=== PATIENT | male | born 1960 | race Caucasian/White ===

== ENCOUNTER 2019-10-21 16:35 | Inpatient (IN) ==
[2019-10-21 17:03] LABS: URINE SOURCE CLEAN CATCH
[2019-10-21 17:10] LABS: BILIRUBIN URINE NEGATIVE (NEGATIVE); BLOOD URINE NEGATIVE (NEGATIVE); COLOR YELLOW; GLUCOSE URINE NEGATIVE (NEGATIVE); KETONE URINE 20 mg/dL (NEGATIVE); LEUKOCYTES URINE NEGATIVE (NEGATIVE); NITRITE URINE NEGATIVE (NEGATIVE); PH URINE 5.5; PROTEIN URINE 30 mg/dL (NEGATIVE); SP GRAVITY URINE 1.021; TURBIDITY URINE CLEAR (CLEAR); UROBILINOGEN URINE NORMAL (NORMAL)
[2019-10-21 17:11] LABS: BASO# 0.02 X1000 (0.0-0.2); BASO% 0.1 % (0.0-0.8); HEMATOCRIT 42.4 % (42.0-52.0); HEMOGLOBIN 13.6 g/dL (14.0-18.0); IMM GRAN# 0.04 X1000 (0.0-0.04); IMM GRAN% 0.2 % (0.0-0.5); LYMPH# 0.44 X1000 (1.2-3.4); LYMPH% 2.7 % (20.5-51.1); MCH 33.6 PG (27-31); MCHC 32.1 g/dL (33-37); MCV 104.7 FL (81-99); MONO# 0.86 X1000 (0.11-0.59); MONO% 5.4 % (1.7-9.3); MPV 10.3 FL (7.4-10.4); NEUT# 14.69 X1000 (1.4-6.5); NEUT% 91.6 % (42.2-75.2); PLT 308 X1000 (130-400); RBC 4.05 XMIL (4.7-6.1); RDW 12.5 % (11.5-14.5); WBC 16.05 X1000 (4.8-10.8)
[2019-10-21] MEDS ORDERED: ZOFRAN IV ONE ×2 (17:12→21:45)
[2019-10-21] MEDS ORDERED: NS 1,000 ML IV ONE ×3 (17:12→17:55)
[2019-10-21 17:13] LABS: UR EPITHELIAL CELLS <10 /HPF (<10); URINE BACTERIA NEGATIVE /HPF; URINE RBC <10 /HPF (<10); URINE WBC <10 /HPF (<10)
[2019-10-21 17:17] LABS: URINE CRYSTALS NONE SEEN
[2019-10-21 17:22] LABS: LYMPHS 2 % (21-51); MONO 3 % (1-9); SEGS 95 % (42-75)
--- NOTE | 2019-10-21 17:25 | PROVIDER DOCUMENTATION ---
HPI-Abdominal Pain/GI Problem - General Chief Complaint: Nausea/Vomiting Stated Complaint: VOMITING Time Seen by Provider: 10/21/19 16:55 Source: patient Allergies/Adverse Reactions: Patient Allergies Allergy/AdvReac Type Severity Reaction Status Date / Time No Known Allergies Allergy Verified 10/21/19 17:21 Home Medications: Home Medication List Medication Instructions Recorded Confirmed Last Taken Type Folic Acid 1 mg PO DAILY 10/21/19 10/21/19 3 Days Ago History ~10/18/19 LISINOpril [Prinivil] 10 mg PO DAILY 10/21/19 10/21/19 3 Days Ago History ~10/18/19 Omeprazole 40 mg PO QAM 10/21/19 10/21/19 2 Days Ago History ~10/19/19 Promethazine [Phenergan] 25 mg PO Q6H PRN PRN 10/21/19 10/21/19 10/21/19 History - History of Present Illness-ABD Nature of Presenting Problems: 59yom presents to ED c/o 3 day history of diffuse abdominal pain, nausea, vomiting, and inability to maintain PO hydration. He denies fever/chills/diarrhea/dysuria/SOB/back pain. He states he has had a burning sensation in his abdomen radiating to his chest. He states he drinks 1 pint of alcohol every 2-3 days. Abdominal Pain Onset Location: reports: generalized abdomen Pain Radiation: reports: chest Quality of Pain: reports: burning, sharp Severity in ED: reports: severe Onset/Duration: reports: gradual, 3 days ago Timing: reports: still present Activities at Onset: reports: none Exposure to sick contacts?: No Modifying Factors: improves with: eating Associated Symptoms: reports: chest pain, loss of appetite, nausea, vomiting Last BM: unsure Dark Stools Present?: reports: none noticed Rectal Bleeding: reports: none Rectal Pain: reports: none Bruising or Bleeding Gums?: No Similar Symptoms Previously?: Yes Recently seen or treated by another doctor?: No Review of Systems - Adult - REVIEW OF SYSTEMS - ADULT Constitutional: reports: no symptoms reported Eyes: reports: no symptoms reported Ears, Nose, Mouth & Throat: reports: no symptoms reported Cardiovascular: reports: see HPI, chest pain Respiratory: reports: no symptoms reported Gastrointestinal: reports: no symptoms reported, abdominal pain, nausea, poor appetite, vomiting Genitourinary: reports: no symptoms reported Musculoskeletal: reports: no symptoms reported Integumentary: reports: no symptoms reported Neurological: reports: no symptoms reported Psychiatric: reports: no symptoms reported Endocrine: reports: no symptoms reported Hematologic/Lymphatic: reports: no symptoms reported Allergic/Immunologic: reports: no symptoms reported All Other Systems: Reviewed and Negative Past History - Adult - PAST MEDICAL HISTORY-ADULT Review of Records: reports: Old Records Reviewed, Nursing Assessment Review, Medications Reviewed, Social history reviewed & non-contributory. 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) Obstetrical/Gynecological: reports: denies history Genitourinary: reports: denies history Musculoskeletal: reports: other (back pain) Neurological: reports: denies history Psychiatric: reports: depression Endocrine/Immune: reports: denies history Other Conditions: reports: blindness - IMMUNIZATION STATUS Childhood Immunizations: See Nurse Assessment Flu Vaccine: See Nurse Assessment - FAMILY HISTORY Family History: reviewed, not pertinent - SOCIAL HISTORY Smoking: non-smoker Alcohol Use Frequency: every day Living Situation: family Physical Exam-General - PHYSICAL EXAM-ADULT Initial Vital Signs Reviewed: Yes (tachycardic to 140s) - CONSTITUTIONAL General Appearance: alert, mild distress, thin - EYES Eyes: PERRL/EOMI, pink conjunctivae - HEAD, EARS, NOSE, MOUTH & THROAT HENMT: normocephalic/atraumatic, normal ENT inspection, other (Dry Mucous Membranes) - NECK Neck: non-tender, full range of motion, supple. negative: meningismus - RESPIRATORY Respiratory: chest non-tender, lungs clear, normal breath sounds, no pleuratic chest pain, no respiratory distress, no accessory muscle use - CARDIOVASCULAR Cardiovascular: tachycardia - GASTROINTESTINAL (ABDOMEN) Abdominal Exam: soft, abnormal bowel sounds (hypoactive), tenderness (mild diffuse nonspecific) - LYMPHATIC Lymphatic: no adenopathy - MUSCULOSKELETAL Back Exam: normal inspection Extremity: normal range of motion, normal inspection - SKIN Integumentary: warm/dry, pallor (Mild), other (Poor skin turgor) - NEUROLOGIC Neurologic: grossly normal, no motor/sensory deficits - PSYCHIATRIC Psych/Mental Status: normal mood/affect, normal thought content, normal thought process, oriented x 3 Progress - PLAN OF CARE/RESULTS Progress/Plan/Lab Results: Vital Signs - 8 hr 10/21/19 16:39 Temperature 97.9 F Pulse Rate 149 H Respiratory Rate 25 H Blood Pressure 161/68 O2 Sat by Pulse Oximetry 100 Laboratory Results - last 24 hr 10/21/19 10/21/19 10/21/19 16:50 16:50 16:50 WBC 16.05 H RBC 4.05 L Hgb 13.6 L Hct 42.4 MCV 104.7 H MCH 33.6 H MCHC 32.1 L RDW Std Deviation 12.5 Plt Count 308 MPV 10.3 Immature Gran % (Auto) 0.2 Neut % (Auto) 91.6 H Lymph % (Auto) 2.7 L [place] % (Auto) 5.4 Eos % (Auto) 0.0 Baso % (Auto) 0.1 Immature Gran # (Auto) 0.04 Neut # (Auto) 14.69 H Lymph # (Auto) 0.44 L [place] # (Auto) 0.86 H Eos # (Auto) 0.00 Baso # (Auto) 0.02 Segmented Neutrophils 95 H Lymphocytes 2 L Monocytes 3 PTT (Actin FS) 25.0 Urine Source CLEAN CATCH Urine Color YELLOW Urine Turbidity CLEAR Urine pH 5.5 Ur Specific [place] 1.021 Urine Protein 30 A Ur Glucose (Stick) NEGATIVE Ur Ketones (Stick) 20 A Urine Blood NEGATIVE Urine Nitrite NEGATIVE Urine Bilirubin NEGATIVE Urobilinogen Dipstick NORMAL Urine Leukocytes NEGATIVE Urine WBC (Auto) <10 Urine RBC (Auto) <10 U Epithel Cells (Auto) <10 Urine Bacteria (Auto) NEGATIVE Urine Crystals NONE SEEN Small Round Cells Not Reportable Urine Casts Not Reportable Urine Yeast-like Cells Not Reportable Orders Category Date Time Status Cardiac Monitoring DIRECTED Care 10/21/19 16:42 Active Cardiac Monitoring DIRECTED Care 10/21/19 17:15 Active IV Insertion ORDERED Care 10/21/19 16:42 Completed Notify MD of + Sepsis Screen NOW Care 10/21/19 16:42 Active Notify Physician As Ordered Care 10/21/19 16:42 Active CHEST-1 VIEW [RAD] Stat Exams 10/21/19 16:42 Ordered ALCOHOL BLOOD Stat Lab 10/21/19 16:50 Received AMYLASE [CHEM] Stat Lab 10/21/19 16:50 Received BLOOD CULTURE [BLDCUL] Stat Lab 10/21/19 17:11 Received CBC WITH DIFF [HEME] Stat Lab 10/21/19 16:50 Completed CK PROFILE [SP CHEM] Stat Lab 10/21/19 16:50 Received COMPREHENSIVE METABOLIC PANEL [CHEM] Stat Lab 10/21/19 16:50 Received LACTATE, PLASMA [CHEM] Lab 10/21/19 19:45 Uncollected LACTATE, PLASMA [CHEM] Lab 10/21/19 22:45 Uncollected LACTATE, PLASMA [CHEM] Q3H Lab 10/21/19 16:50 Received LIPASE [CHEM] Stat Lab 10/21/19 16:50 Received MAGNESIUM [CHEM] Stat Lab 10/21/19 16:50 Received PROTIME WITH INR [COAG] Stat Lab 10/21/19 16:50 Received PTT [COAG] Stat Lab 10/21/19 16:50 Completed TROPONIN T HIGH SENSITIVITY Stat Lab 10/21/19 16:50 Received URINALYSIS W/POSS RFLX CULT [URINALYSIS] Stat Lab 10/21/19 16:50 Completed URINE MANUAL MICROSCOPIC [URINALYSIS] Stat Lab 10/21/19 16:50 Completed 0.9% Sodium Chloride Inj [Ns] 1,000 ml Med 10/21/19 17:12 Active IV 999 mls/hr Ondansetron [Zofran] Med 10/21/19 17:12 Discontinued 4 mg IV NOW ONE Oxygen Device Stat Oth 10/21/19 16:42 Active Pt signed out to me by Dr An. Pt continues to be tachycardic and repeat lactate is elevated. Will wdmit. Hospitalist paged at 20:30, awaiting call back. Result Diagrams: 10/21/19 16:50 10/21/19 16:50 - CONSULTS/PCP/HOSPITALIST Notification #1 *Consult/PCP/Hospitalist*: Dr Oswald Time Discussed: 21:55 - CHANGE OF SHIFT REPORT (ED Provider) 1 Report Given and Care Transferred to:: Dr. An Time of Transfer: 17:50 Items Pending: Labs, CT/MRI Results Comment: Discussed pts VS, current labs (including elevated Lactic) with Dr. An; he will assume patient's care from this point forward as the attending provider. Pt relocated from [facility] to [facility] ED 1 per Sherry, ED Charge Nurse. Departure - Departure Date of Disposition Decision: 10/21/19 Time of Disposition Decision: 21:59 DIAGNOSIS: Tachycardia, Alcohol dependence, Dehydration symptoms Disposition: ADMITTED INPATIENT 09 Certified Medical Emergency: Emergent Condition: Stable Referrals and Follow-Ups: Dre Cardoso CRNP [Primary Care Provider] - - Critical Care Note This patient required my direct & personal management of CC.: No Attestation - Physician/ ASTRID Attestation Patient care was provided by Advanced Practice Provider:: Yes Advanced Practice Provider:: Purnima Newell Advanced Practice Provider documentation review:: The Mid-level provider documentation, treatment plan and medical decision making was reviewed by the physician who agrees with all treatment and medical decision making by the MLP. The physician spent face to face time with patient:: Yes (Dr. An assumed primary ED care of patient at 1750.) Advanced Practice Provider documentation review:: Supervising physician onsite and consulted in the evaluation and care of this patient. The physician did have a face to face encounter with the patient.
[2019-10-21 17:26] LABS: ALB/GLOB RATIO 1.5; ALBUMIN 4.8 g/dL (3.5-5.0); CREATININE 1.3 mg/dL (0.7-1.2); INR 0.91; POTASSIUM 4.6 mmol/L (3.5-5.1); PROTIME 12.3 Seconds (11.0-16.0); TOTAL BILIRUBIN 1.16 mg/dL (0.20-1.00); TOTAL PROTEIN 8.1 g/dL (6.3-8.3)
[2019-10-21 17:34] LABS: MAGNESIUM 1.5 mg/dL (1.5-2.7)
--- NOTE | 2019-10-21 18:13 | Diag Imaging Result Doc PS360 ---
EXAM: CHEST-1 VIEW 10/21/2019 HISTORY: positive sepsis screen TECHNIQUE: AP portable upright at 0605 COMMENT: There is no evidence of acute cardiac or pulmonary disease. No previous studies are available for comparison. IMPRESSION: No evidence of acute disease. Electronically signed by Cody Acosta 10/21/2019 6:10 PM
[2019-10-21] MEDS ORDERED: PHENERGAN IV ONE (18:43)
[2019-10-21] MEDS ORDERED: SODIUM CHLORIDE 0.9% INJ ONE ×2 (18:43→22:45)
[2019-10-21] MEDS ORDERED: ATIVAN IV ONE ×2 (18:51→22:18)
[2019-10-21] MEDS ORDERED: ATIVAN ONE (19:00)
--- NOTE | 2019-10-21 19:31 | Diag Imaging Result Doc PS360 ---
EXAM: CT ABD/PELVIS W/IV CONT ONLY 10/21/2019 HISTORY: vomiting, abd pain, history of ulcerative colitis TECHNIQUE: This exam was performed using automated exposure control, adjustment of mA or kV according to patient size, and/or use of iterative reconstruction technique. COMMENT: There are no previous studies available for comparison. There is marked hepatic steatosis. There is a densely calcified granuloma in the left lower lobe. There is retained fluid in the stomach. The small bowel and colon are not distended. The spleen is not enlarged. The adrenal glands are not enlarged. The pancreas is within normal limits. The kidneys are without evidence of hydronephrosis or mass. The aorta is normal in caliber. The mesenteric and renal arteries appear to be patent. Pelvis: There is no evidence of bowel obstruction. The appendix is normal in appearance. There is no evidence of free fluid. The urinary bladder is unremarkable. 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 There are mild degenerative disc changes in the lumbar spine. IMPRESSION: Hepatic steatosis. No evidence of acute gastrointestinal inflammation. Electronically signed by Cody Acosta 10/21/2019 7:28 PM
[2019-10-21 20:17] LABS: ALLEN TEST YES; BE -2.3 mmoll (-3.0-3.0); BLOOD TYPE ARTERIAL; HCO3-(ACT) 23.1 mmoll (20.0-26.0); METHB 1.3 % (0.0-1.5); O2(CT) 15.1 mL/dL (15.0-23.0); O2HB 94.2 % (95.0-99.0); PCO2(98.6) 28 mmHg (35-45); PO2(98.6) 71 mmHg (60-100); SAMPLE BLOOD; SAO2 97.2 % (95.0-100.0); THB 11.4 g/dL (11.5-17.4); pH(98.6) 7.47 (7.35-7.45)
[2019-10-21 20:18] LABS: MODALITY ROOM AIR
--- NOTE | 2019-10-21 21:10 | EKG Report ---
Test Performed on : 10/21/2019 7:58:19 PM Test Reason : epigastric pain Blood Pressure : / mmHG Vent. Rate : 135 BPM Atrial Rate : 135 BPM P-R Int : 130 ms QRS Dur : 070 ms QT Int : 306 ms P-R-T Axes : 064 043 046 degrees QTc Int : 459 ms Sinus tachycardia. Otherwise normal ECG When compared with ECG of 02-NOV-2018 13:48, Vent. rate has increased BY 50 BPM Unconfirmed Result
[2019-10-21] MEDS ORDERED: TYLENOL PO ONE (21:45)
[2019-10-21] MEDS ORDERED: M.V.I.-12 10 ML, FOLIC ACID 1 MG, MAGNESIUM SULFATE 1 GM, THIAMINE 100 MG in NS 1,000 ML IV ONE (22:18)
[2019-10-21] MEDS ORDERED: LIBRIUM PO ONE (22:18)
[2019-10-21] MEDS ORDERED: MAGNESIUM SULFATE 2 GM/S.W.I. 2 GM/50 ML IVPB IV ONE (22:19)
[2019-10-21] MEDS ORDERED: MAALOX PLUS LIQUID PO ONE (22:22)
[2019-10-21] MEDS ORDERED: SODIUM CHLORIDE 0.9% INJ PRN (22:45)
[2019-10-21] MEDS ORDERED: PHENERGAN IV PRN (22:45)
[2019-10-21] MEDS ORDERED: ATIVAN IV PRN (22:45)
[2019-10-21] MEDS ORDERED: ZOFRAN IV PRN (22:45)
[2019-10-21] MEDS ORDERED: TYLENOL PO PRN (22:45)
--- NOTE | 2019-10-21 22:59 | HISTORY AND PHYSICAL ---
PRIMARY CARE PHYSICIAN: XUAN Angeles REASON FOR ADMISSION: Intractable nausea, vomiting, and agitation. HISTORY OF PRESENT ILLNESS: Mr. Jerome Ac is a 59-year-old man with longstanding history of hypertension, depression, and alcohol abuse. He currently states he has no suicidal ideation and from a mental standpoint, he is at his baseline. He, however, comes in here today because he vomited about 20 times since the morning. He was awakened by intense sour burning sensation in his abdomen and kept on vomiting on average 3 times an hour. He denies any coffee grounds or blood in vomitus. He denies any melanotic stools or hematochezia. After vomiting for several times, he develops severe, diffuse, burning abdominal pain radiating retrosternally up all the way to his throat. He denies any fever or chills. He says he still has some feelings of residual nausea, but otherwise, his symptoms have improved some. He says his urine output has diminished and he says he feels very thirsty and weak. As a result of this, he visit decided that he needs to quit drinking. He says he drinks about a pint of vodka and 12 beers which lasted him about the entire week. He does admit to having shakes when he does not drink for prolonged periods of time. His last drink was 2 days ago. No loss of consciousness. No change in the color of his stools or urine. No cardiorespiratory complaints at this time. No arthralgia or rash. No polyuria or polydipsia. REVIEW OF SYSTEMS: Twelve system review was done. Positive findings as per HPI. ALLERGIES: No known allergies. HOME MEDICATIONS: He is on lisinopril 10 mg daily, Phenergan 25 mg q.6, omeprazole 40 mg q.a.m., folic acid 1 mg daily. FAMILY HISTORY: Notable for diabetes and heart disease. SURGICAL HISTORY: He has had cataract surgery, lipoma excision. LAB WORK: Normal lipase. Lactic acid initially was 12.6, subsequent one was 7. AST 69, ALT 47, alkaline phosphatase 158, total bilirubin 1.1, magnesium 1.5, BUN 12, creatinine 1.3. PT and PTT is normal. Alcohol and acetone level is undetected. Urinalysis, specific gravity 1.021, and protein, 20+ ketones. Blood gas 7.47, pCO2 28, PO2 71 on room air. White count 16,000. Hemoglobin and hematocrit 13 and 42. Platelets 308,000. There are 91% neutrophils. Chest film: No evidence of acute cardiopulmonary disease. CT of the abdomen and pelvis was done and it showed hepatic steatosis, but otherwise no other findings. PHYSICAL EXAMINATION: VITAL SIGNS: Blood pressure 162/98, heart rate 143, respiratory rate is 28, temp is 97.9. His O2 saturation 97% on room air. GENERAL: He is middle-aged, slightly tremulous and anxious man who is not in acute distress. He is AAO x3. Normal mood and affect. HEENT: Head is normocephalic, atraumatic. Eyes, CRISTINA, EOMI. He is anicteric. Not pale. ENT exam is normal. NECK: Supple. No JVD or carotid bruit. No thyromegaly. CHEST: Clear when auscultated with good air entry both lung howard. CARDIOVASCULAR: First and second heart sounds heard. No gallops, murmurs, rubs. Rhythm is regular. ABDOMEN: Slightly protuberant, soft, with mildly diffusely tender abdomen with no rebound or guarding. Bowel sounds hyperactive. RECTAL: Deferred at this time. EXTREMITIES: The patient has fine tremors of outstretched hands. He has a decreased distal pulse volumes which are tachycardic, regular, symmetrical. No edema, clubbing or cyanosis. NEUROLOGIC: No gross focal deficits. SKIN: Intact. No breakdown, erythema. Mildly decreased turgor. MUSCULOSKELETAL EXAM: Grossly normal. ASSESSMENT: 1. Alcohol withdrawal. 2. Intractable nausea, vomiting, with post hematemesis esophagitis and gastritis. 3. Volume depletion. 4. Hypertension. 5. Alcoholic hepatitis. 6. Lactic acidosis secondary to decreased volume output and poor clearance of lactic acid due to underlying alcoholic liver disease. PLAN: Continue aggressive fluid resuscitation. Scheduled Librium has been started with p.r.n. Ativan for agitation. Banana bag will be instituted today while standing every day. Electrolytes will be replaced aggressively. Please follow up phosphorus levels. Magnesium will be replaced today. We will discontinue lisinopril and put patient on beta blockers for blood pressure and heart rate and alcohol withdrawal symptoms. The patient says when he leaves the hospital, he and his sister have arranged for some outpatient detox program. Start patient on proton pump inhibitor and p.r.n. Maalox for said gastritis and esophagitis. cc: MD Dre Rodriguez CRNP
[2019-10-21] MEDS: LR 1,000 ML IV SCH (23:53)
[2019-10-21] MEDS: LOVENOX SUBQ SCH (23:54)
[2019-10-21] MEDS: COREG PO SCH (23:54)
[2019-10-22] MEDS: LR 1,000 ML IV SCH ×3 (04:48→16:21)
[2019-10-22 06:48] LABS: HEMATOCRIT 31.4 % (42.0-52.0); HEMOGLOBIN 9.8 g/dL (14.0-18.0); LYMPH# 0.66 X1000 (1.2-3.4); LYMPH% 8.8 % (20.5-51.1); MCH 32.9 PG (27-31); MCHC 31.2 g/dL (33-37); MCV 105.4 FL (81-99); MONO# 0.72 X1000 (0.11-0.59); MONO% 9.7 % (1.7-9.3); MPV 10.2 FL (7.4-10.4); NEUT# 6.08 X1000 (1.4-6.5); NEUT% 81.5 % (42.2-75.2); PLT 192 X1000 (130-400); RBC 2.98 XMIL (4.7-6.1); RDW 12.5 % (11.5-14.5); WBC 7.46 X1000 (4.8-10.8)
[2019-10-22 07:15] LABS: AGAP 14; ALB/GLOB RATIO 1.3; ALBUMIN 3.2 g/dL (3.5-5.0); ALKALINE PHOSPHATASE 99 U/L (32-122); BUN 14 mg/dL (8-22); CALCIUM 7.8 mg/dL (8.8-10.2); CHLORIDE 103 mmol/L (98-107); COSMO 282; CREATININE 1.2 mg/dL (0.7-1.2); ESTIMATED GFR > 60; GLUCOSE 103 mg/dL (70-104); GOT 93 U/L (10-34); GPT 44 U/L (10-44); MAGNESIUM 1.4 mg/dL (1.5-2.7); POTASSIUM 4.1 mmol/L (3.5-5.1); SODIUM 141 mmol/L (136-145); TCO2 24 mmol/L (25-35); TOTAL BILIRUBIN 0.65 mg/dL (0.20-1.00); TOTAL PROTEIN 5.7 g/dL (6.3-8.3)
[2019-10-22] MEDS: FOLIC ACID PO SCH (08:14)
[2019-10-22] MEDS: THIAMINE 100 MG in NS 50 ML IV SCH (08:15)
[2019-10-22] MEDS: PROTONIX IV SCH (08:15)
[2019-10-22] MEDS: LIBRIUM PO SCH ×4 (08:15→21:28)
[2019-10-22] MEDS: COREG PO SCH ×2 (08:15→21:28)
[2019-10-22] MEDS ORDERED: COMPAZINE IV ONE (14:44)
[2019-10-22] MEDS ORDERED: G.I. COCKTAIL PO ONE (14:44)
[2019-10-22] MEDS: CARAFATE LIQUID PO SCH ×2 (15:42→21:28)
--- NOTE | 2019-10-22 17:32 | PROGRESS NOTE ---
DATE: 10/22/2019 SUBJECTIVE: This morning, Mr. Ac refers to be having a lot of burning in his retrosternal area. He wants to vomit but he cannot. He feels a lot of discomfort in the upper epigastrium. OBJECTIVE: Vital signs: Blood pressure is 147/89, pulse of 82, respiration is 13, temperature 98.6 degrees. General: Mr. Ac is a 59-year-old male, he is in bed. No distress. Mucosa is pink and moist. Anicteric. Acyanotic. Neck: Supple. Chest: Good air entry bilaterally. There were no crepitations. No rhonchi. Cardiovascular: Regular rate and rhythm. No murmurs, no rubs, no gallops. Abdomen: Soft, minimally distended. Some tenderness in the epigastrium but no guarding, no rebound. Extremities: No pedal edema. Central Nervous System: Patient is awake, alert, oriented. No focal deficit. LABORATORY DATA: Has all been reviewed. CBC shows microcytic anemia. Chemistry for the most part is unremarkable. Bicarbonate has normalized. ASSESSMENT: 1. Intractable nausea and vomiting with p.o. intolerance. 2. Clinical volume depletion improved. 3. Alcohol use and abuse with possible withdrawal symptoms on admission. This is improved. 4. Epigastric discomfort with dyspeptic symptoms most likely due to alcohol induced gastroesophagitis. PLAN: So for now, we are going to continue with the IV fluids, clear liquid diet. Give . Mr. Ac 1 time dose of Compazine and a GI cocktail. Started him on also Carafate and we will continue with the PPI. We will re-evaluate him in the morning. If he continues to be p.o. intolerant, we will get GI to evaluate him. cc: Timothy Maurice MD [facility]
[2019-10-22] MEDS: LOVENOX SUBQ SCH (23:35)
[2019-10-23] MEDS: CARAFATE LIQUID PO SCH ×2 (02:53→08:51)
[2019-10-23 08:03] VITALS: BP 167/96
[2019-10-23] MEDS: FOLIC ACID PO SCH (08:46)
[2019-10-23] MEDS: THIAMINE 100 MG in NS 50 ML IV SCH (08:46)
[2019-10-23] MEDS: LIBRIUM PO SCH (08:46)
[2019-10-23] MEDS: PROTONIX IV SCH (08:46)
[2019-10-23] MEDS: COREG PO SCH (08:46)
--- NOTE | 2019-10-24 10:00 | DISCHARGE SUMMARY ---
ADMISSION DATE: 10/21/2019 DISCHARGE DATE: 10/23/2019 DISPOSITION: Home FOLLOWUP: 1. XUAN Angeles 2. Dr. Antonio. CONSULTATION DURING THIS ADMISSION: None. IMAGING STUDIES OF SIGNIFICANCE: 1. Chest x-ray showed no evidence of acute disease. 2. A CT scan of the abdomen and pelvis show hepatic steatosis. No evidence of acute gastrointestinal inflammation. ADMISSION DIAGNOSIS: 1. Alcohol withdrawal. 2. Intractable nausea vomiting. 3. Volume depletion. 4. Alcohol hepatitis. DIAGNOSIS AT THE TIME OF DISCHARGE: 1. Intractable nausea and vomiting, improved. 2. Clinical volume depletion, improved. 3. Alcohol use and abuse with possible withdrawal symptoms on admission, resolved. 4. Epigastric discomfort with this dyspeptic symptoms, most likely due to alcohol-induced gastroesophagitis. 5. Transaminitis secondary to alcohol liver injury. 6. Hepatic steatosis, most likely from alcohol abuse. DISCHARGE MEDICATIONS: 1. Lisinopril 10 mg p.o. daily. 2. Carvedilol 6.25 b.i.d. 3. Pantoprazole 40 mg p.o. daily. 4. Carafate 1 g p.o. q. 6 hourly. 5. Folic acid 1 mg p.o. daily. 6. Phenergan 25 mg p.o. q. 6. PRESENTING COMPLAINT: Intractable nausea and vomiting. HISTORY OF PRESENTING COMPLAINT: Mr. Ac is a 59-year-old male who is known to have high blood pressure, depression, alcohol use and abuse, came to the emergency department because of intractable nausea and vomiting. The patient refers that he vomited about 20 times on the morning of presentation. He did deny any melena or hematochezia. He said he drinks about 12 beers or a pint of vodka in the week. Upon presentation, he was also found to be in mild alcohol withdrawal. He was subsequently admitted to [facility] for further medical care. HOSPITAL COURSE: Mr. Ac was admitted to [facility], was hydrated. We replenished all his electrolyte abnormality. He was NPO initially because of p.o. intolerance and eventually he was started on clears which he tolerated well and this was advanced. His withdrawal symptoms all got better. This morning, his sister was at the bedside. We spoke extensively about Mr. Ac's drinking habits and in the fact that is causing a lot of his of his medical problems including the hepatic steatosis, the withdrawal and all that. The sister did also advise him to quit since this been going on for so long. Ms Ac did say he wanted [facility] to evaluate him because of depression history. This was successfully done. However, he does not qualify for any inpatient. He has been advised to follow up outpatient. Mr. Ac has advised on every occasion about alcohol cessation and he has been advised to follow up with Dr. Reyez for any other GI related needs. We also told him that if his nausea and vomiting reoccur, he will need to see Dr. Reyez probably earlier than later. Other discharge instructions were discussed with him and he voiced understanding. The sister also at the bedside voiced understanding. TIME SPENT FOR DISCHARGE: 38 minutes. cc: Timothy Maurice MD
== END 2019-10-23 12:10 | disposition home or self-care (01) | DRG 897 ==
LOC: ED 16:35 → SUATTDRO 22:53 → 2N 22:53
PROVIDERS: ATTEND Internal Medicine

== ENCOUNTER 2019-10-25 14:24 | Inpatient (IN) ==
[2019-10-25 16:07] LABS: URINE SOURCE CLEAN CATCH
[2019-10-25 16:10] LABS: BILIRUBIN URINE SMALL (NEGATIVE); BLOOD URINE NEGATIVE (NEGATIVE); COLOR YELLOW; GLUCOSE URINE NEGATIVE (NEGATIVE); KETONE URINE 10 mg/dL (NEGATIVE); LEUKOCYTES URINE NEGATIVE (NEGATIVE); NITRITE URINE NEGATIVE (NEGATIVE); PROTEIN URINE 50 mg/dL (NEGATIVE); SP GRAVITY URINE 1.028; TURBIDITY URINE HAZY (CLEAR); UROBILINOGEN URINE 2 mg/dL (NORMAL)
[2019-10-25 16:23] LABS: UR EPITHELIAL CELLS <10 /HPF (<10); URINE BACTERIA NEGATIVE /HPF; URINE RBC <10 /HPF (<10); URINE WBC <10 /HPF (<10)
[2019-10-25 16:25] LABS: BASO# 0.01 X1000 (0.0-0.2); BASO% 0.1 % (0.0-0.8); EOS# 0.15 X1000 (0.0-0.7); EOS% 1.7 % (0.0-10.0); HEMATOCRIT 35.5 % (42.0-52.0); HEMOGLOBIN 11.6 g/dL (14.0-18.0); LYMPH# 1.11 X1000 (1.2-3.4); LYMPH% 12.9 % (20.5-51.1); MCH 33.6 PG (27-31); MCHC 32.7 g/dL (33-37); MCV 102.9 FL (81-99); MONO# 1.04 X1000 (0.11-0.59); MONO% 12.1 % (1.7-9.3); MPV 10.2 FL (7.4-10.4); NEUT% 73.2 % (42.2-75.2); PLT 192 X1000 (130-400); RBC 3.45 XMIL (4.7-6.1); RDW 12.2 % (11.5-14.5); WBC 8.61 X1000 (4.8-10.8)
[2019-10-25 16:38] LABS: URINE CASTS NONE SEEN; URINE CRYSTALS NONE SEEN; URINE SMALL ROUND CELLS NONE SEEN; URINE YEAST NONE SEEN
[2019-10-25 16:49] LABS: AGAP 12; ALB/GLOB RATIO 1.2; ALBUMIN 3.6 g/dL (3.5-5.0); ALKALINE PHOSPHATASE 100 U/L (32-122); BUN 12 mg/dL (8-22); CHLORIDE 98 mmol/L (98-107); COSMO 274; CREATININE 1.1 mg/dL (0.7-1.2); ESTIMATED GFR > 60; GLUCOSE 106 mg/dL (70-104); GOT 16 U/L (10-34); GPT 18 U/L (10-44); POTASSIUM 3.5 mmol/L (3.5-5.1); SODIUM 137 mmol/L (136-145); TCO2 27 mmol/L (25-35); TOTAL PROTEIN 6.6 g/dL (6.3-8.3)
[2019-10-25] MEDS ORDERED: BENADRYL IV ONE (19:56)
[2019-10-25] MEDS ORDERED: BENTYL IM ONE (19:56)
[2019-10-25] MEDS ORDERED: REGLAN IV ONE (19:56)
[2019-10-25] MEDS ORDERED: NS 1,000 ML IV ONE (19:56)
--- NOTE | 2019-10-25 20:44 | Diag Imaging Result Doc PS360 ---
CHEST-2 VIEWS - 10/25/2019 INDICATION: short of breath COMPARISON: 10/21/2019 FINDINGS: Stable granuloma in the lateral left costophrenic angle. The lungs are clear. Heart size is normal. No pneumothorax or pleural effusion. IMPRESSION: No acute disease or change from prior. Electronically signed by Everton Luis 10/25/2019 8:41 PM
[2019-10-25 21:29] LABS: INR 0.99; PROTIME 13.2 Seconds (11.0-16.0)
[2019-10-25 21:34] LABS: AMYLASE 63 U/L (20-200); LIPASE 22 U/L (13-60)
--- NOTE | 2019-10-25 21:44 | Diag Imaging Result Doc PS360 ---
CT ANGIOGRM PULMONARY ARTERIES, CT ANGIOGRAM ABDOMEN - 10/25/2019 INDICATION: shortness of breath TECHNIQUE: Axial CT images were obtained after administering intravenous contrast. Three-dimensional angiographic images were generated. COMPARISON: 10/21/2019 FINDINGS: CHEST: There is no pulmonary embolism. Heart and great vessels are normal. No adenopathy. There is a benign calcified granuloma in the left lower lobe. No infiltrates. The airways are clear. There are moderate degenerative changes of the spine. No acute or suspicious bony lesion. ABDOMEN: There is moderate fatty change of the liver stable from prior. The gallbladder, pancreas, spleen, adrenals, and kidneys are normal. No bowel obstruction or inflammation. Normal appendix. The abdominal aorta and all of its branches are patent. No aneurysm or stenosis. No significant vascular disease. There are moderate degenerative changes of the spine. No acute or suspicious bony lesion. IMPRESSION: Fatty change of the liver. No acute process. Normal vascularity throughout the chest and abdomen. This exam was performed using automated exposure control, adjustment of mA or kV according to patient size, and/or use of iterative reconstruction technique Electronically signed by Everton Luis 10/25/2019 9:42 PM
[2019-10-25] MEDS ORDERED: ASPIRIN PO ONE (22:01)
[2019-10-25] MEDS ORDERED: THORAZINE IM ONE (22:01)
[2019-10-25] MEDS ORDERED: LASIX IV ONE (22:01)
[2019-10-25] MEDS ORDERED: VASOTEC IV ONE (22:01)
[2019-10-25] MEDS ORDERED: NITROGLYCERIN TOP ONE (22:03)
--- NOTE | 2019-10-25 22:21 | PROVIDER DOCUMENTATION ---
This chart was entered by Fern Sierra Scribe, acting as scribe for Charles Lemus MD. HPI-General Adult - General Chief Complaint: Nausea Stated Complaint: RECHECK/ABD PAIN Time Seen by Provider: 10/25/19 19:36 Source: patient Allergies/Adverse Reactions: Patient Allergies Allergy/AdvReac Type Severity Reaction Status Date / Time No Known Allergies Allergy Verified 10/25/19 20:48 Home Medications: Home Medication List Medication Instructions Recorded Confirmed Last Taken Type LISINOpril [Prinivil] 10 mg PO DAILY 10/21/19 10/25/19 3 Days Ago History ~10/18/19 Carvedilol [Coreg] 6.25 mg PO BID #120 tab 10/23/19 10/25/19 Unknown Rx Folic Acid 1 mg PO DAILY #120 tab 10/23/19 10/25/19 Unknown Rx Pantoprazole [Protonix] 40 mg PO DAILY@0700 #30 tab 10/23/19 10/25/19 Unknown Rx Promethazine [Phenergan] 25 mg PO Q6H PRN PRN #20 tab 10/23/19 10/25/19 Unknown Rx Sucralfate [Carafate Liquid] 1 gm PO Q6HR #1 udc 10/23/19 10/25/19 Unknown Rx - History of Present Illness -Gen Adult Nature of Presenting Problems: pt is a 59 yr old male presenting with 2 day complaint of intermittent h iccups/belching, pt reports when hiccups begin he becomes short of breath and nauseated, pt reports he has been unable to vomit but drools excessively after hiccups/belching. pt admits he was discharged from this facility 2 days ago, symptoms onset just after discharge. pt admits hx of alcoholism states 1 week since last drink. pt also reports diaphoresis and tremor with episodes. Location of Pain/Injury: reports: abdomen Pain Radiation: reports: no radiation Quality of Pain: reports: cramping Severity: reports: moderate Onset/Duration: reports: 2 days ago Timing: reports: still present Context/Activities at Onset: reports: light activity Modifying Factors: improves with: nothing Associated Symptoms: reports: diaphoresis, nausea, shortness of breath. denies: back/neck pain, chest pain, dizziness, fever/chills, sinus congestion/drainage, vomiting Similar Symptoms Previously?: Yes Recently seen or treated by another doctor?: Yes (discharged from this facilty 2 days ago) Review of Systems - Adult - REVIEW OF SYSTEMS - ADULT Constitutional: reports: fatique Eyes: reports: no symptoms reported Ears, Nose, Mouth & Throat: reports: no symptoms reported Cardiovascular: reports: chest pain (midsternal, intermittent, non-radiating). denies: palpitations, syncope Respiratory: reports: excessive sputum production, shortness of breath Gastrointestinal: reports: abdominal pain, nausea, other (hiccups/belching) Genitourinary: reports: no symptoms reported Musculoskeletal: reports: no symptoms reported Neurological: reports: tremors. denies: dizziness/vertigo, headache/migraines, syncope Psychiatric: reports: anxiety, alcohol/drug dependence (1 week since last ETOH use-per pt) Endocrine: reports: excessive sweating Hematologic/Lymphatic: reports: no symptoms reported Allergic/Immunologic: reports: no symptoms reported All Other Systems: Reviewed and Negative Past History - Adult - PAST MEDICAL HISTORY-ADULT Review of Records: reports: Old Records Reviewed, Nursing Assessment Review, Medications Reviewed, Social history reviewed & non-contributory. 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) Obstetrical/Gynecological: reports: denies history Genitourinary: reports: denies history Musculoskeletal: reports: other (back pain) Neurological: reports: denies history Psychiatric: reports: depression Endocrine/Immune: reports: denies history Other Conditions: reports: blindness - PRIOR SURGERIES/PROCEDURES Surgical/Procedure History: reports: reviewed, not pertinent - IMMUNIZATION STATUS Childhood Immunizations: See Nurse Assessment Flu Vaccine: See Nurse Assessment - FAMILY HISTORY Family History: reviewed, not pertinent - SOCIAL HISTORY Smoking: denies Substance Use: alcohol (1 week since last use per pt) Living Situation: alone Physical Exam-General - PHYSICAL EXAM-ADULT Initial Vital Signs Reviewed: Yes - CONSTITUTIONAL General Appearance: alert, no apparent distress, anxious, other (tremulous) - EYES Eyes: PERRL/EOMI - HEAD, EARS, NOSE, MOUTH & THROAT HENMT: normocephalic/atraumatic, normal ENT inspection, other (mildly dry oral mucosa) - NECK Neck: non-tender, full range of motion, supple, normal inspection - RESPIRATORY Respiratory: chest non-tender, lungs clear, normal breath sounds - CARDIOVASCULAR Cardiovascular: normal peripheral pulses, no edema, tachycardia - GASTROINTESTINAL (ABDOMEN) Abdominal Exam: normal bowel sounds, non tender, soft - LYMPHATIC Lymphatic: no adenopathy - MUSCULOSKELETAL Back Exam: normal inspection, no CVA tenderness, no vertebral tenderness Extremity: normal range of motion, non-tender, normal gait, normal inspection - SKIN Integumentary: diaphoresis, pallor - NEUROLOGIC Neurologic: grossly normal, no motor/sensory deficits - PSYCHIATRIC Psych/Mental Status: anxious Progress - PLAN OF CARE/RESULTS Progress/Plan/Lab Results: Vital Signs - 8 hr 10/25/19 15:37 Temperature 99.2 F Pulse Rate 93 H Respiratory Rate 20 Blood Pressure 152/106 O2 Sat by Pulse Oximetry 98 Laboratory Results - last 24 hr 10/25/19 10/25/19 10/25/19 15:56 16:13 16:13 WBC 8.61 RBC 3.45 L Hgb 11.6 L Hct 35.5 L MCV 102.9 H MCH 33.6 H MCHC 32.7 L RDW Std Deviation 12.2 Plt Count 192 MPV 10.2 Immature Gran % (Auto) 0.0 Neut % (Auto) 73.2 Lymph % (Auto) 12.[address] [place] % (Auto) 12.1 H Eos % (Auto) 1.7 Baso % (Auto) 0.1 Immature Gran # (Auto) 0.00 Neut # (Auto) 6.30 Lymph # (Auto) 1.[address] [place] # (Auto) 1.04 H Eos # (Auto) 0.15 Baso # (Auto) 0.01 Sodium 137 Potassium 3.5 Chloride 98 Carbon Dioxide 27 Anion Gap 12 BUN 12 Creatinine 1.1 Estimated GFR/1.73 m2 > 60 BUN/Creatinine Ratio 11 Glucose 106 H Calculated Osmolality 274 Calcium 9.0 Total Bilirubin 0.70 AST 16 ALT 18 Alkaline Phosphatase 100 Total Protein 6.6 Albumin 3.6 Globulin 3.0 Albumin/Globulin Ratio 1.2 Urine Source CLEAN CATCH Urine Color YELLOW Urine Turbidity HAZY Urine pH 6.0 Ur Specific [place] 1.028 Urine Protein 50 A Ur Glucose (Stick) NEGATIVE Ur Ketones (Stick) 10 A Urine Blood NEGATIVE Urine Nitrite NEGATIVE Urine Bilirubin SMALL A Urobilinogen Dipstick 2 A Urine Leukocytes NEGATIVE Urine WBC (Auto) <10 Urine RBC (Auto) <10 U Epithel Cells (Auto) <10 Urine Bacteria (Auto) NEGATIVE Urine Crystals NONE SEEN Small Round Cells NONE SEEN Urine Casts NONE SEEN Urine Yeast-like Cells NONE SEEN Orders Category Date Time Status Nursing- Obtain EKG once Care 10/25/19 20:00 Active CHEST-2 VIEWS [RAD] Stat Exams 10/25/19 19:55 Ordered CTA [CT ANGIOGRAM ABDOMEN] [CT] Stat Exams 10/25/19 19:59 Ordered CTA [CT ANGIOGRAM THORAX] [CT] Stat Exams 10/25/19 19:59 Ordered AMMONIA [CHEM] Stat Lab 10/25/19 19:56 Uncollected AMYLASE [CHEM] Stat Lab 10/25/19 19:55 Ordered CBC WITH DIFF [HEME] Stat Lab 10/25/19 16:13 Completed CMP [COMPREHENSIVE METABOLIC PANEL] [CHEM] Stat Lab 10/25/19 16:13 Completed D-DIMER [COAG] Stat Lab 10/25/19 19:55 Ordered INFLUENZA SCREEN A/B Stat Lab 10/25/19 19:55 Uncollected LACTATE, PLASMA [CHEM] Stat Lab 10/25/19 19:55 Uncollected LIPASE [CHEM] Stat Lab 10/25/19 19:55 Ordered MAGNESIUM [CHEM] Stat Lab 10/25/19 19:56 Uncollected PRO B-NATRIURETIC PEPTIDE Stat Lab 10/25/19 20:00 Ordered PROTIME WITH INR [COAG] Stat Lab 10/25/19 20:00 Uncollected TROPONIN T HIGH SENSITIVITY Stat Lab 10/25/19 20:00 Ordered URINALYSIS W/POSS RFLX CULT [URINALYSIS] Stat Lab 10/25/19 15:56 Completed URINE MANUAL MICROSCOPIC [URINALYSIS] Stat Lab 10/25/19 15:56 Completed phos [PHOSPHORUS] [CHEM] Stat Lab 10/25/19 19:58 Ordered 0.9% Sodium Chloride Inj [Ns] 1,000 ml Med 10/25/19 19:56 Active IV 999 mls/hr Dicyclomine [Bentyl] Med 10/25/19 19:56 Discontinued 20 mg IM NOW ONE Diphenhydramine [Benadryl] Med 10/25/19 19:56 Discontinued 25 mg IV NOW ONE Metoclopramide [Reglan] Med 10/25/19 19:56 Discontinued 10 mg IV NOW ONE EKG [EKG] Stat Ther 10/25/19 20:00 Ordered Result Diagrams: 10/25/19 16:13 10/25/19 16:13 - REASSESSMENT Reassessment #1 Time Reassessed: 21:56 Status: improving (Givne iVF bolus, IV reglan and benadryl and IM bentyl. Still very hypertensive, with diastolic 112. Still complains of CP. Given ASA, nitropaste, IV enalapril and IV lasix for likely hypertensive heart disease/new onset CHF) Reassessment Comment: Will ask hospitalist to admit for cardiac work-up - EKG 1 Time of EKG reading by physician:: 22:14 EKG Read and Signed by:: Charles Lemus EKG Interpretation (*Must complete 3 of following elements*): Abnormal Rate: 96 Rhythm: NSR [place]: normal QRS: LVH, other (left atrial enlargement) [place] Interval: normal ST Wave: normal Prior EKG Comparison: no prior EKG - XRAY 1 XRAY Study: Chest Impression: Normal, See EMR Report (Signed EXAM: CHEST-1 VIEW 10/25/2019 HISTORY: WEAKNESS TECHNIQUE: AP chest COMMENT: The heart size and pulmonary vascularity are within normal limits. There are no previous studies available for comparison. There is no evidence of acute pulmonary disease. IMPRESSION: No acute disease. Electronically signed by Cody Acosta 10/25/2019 1:43 PM 10/25/19 1343 Interpreting Physician: Cody Acosta MD Dictated Date/Time: 10/25/19 1342 cc: Abraham Xie MD; None,PCP) - CT/MRI 1 CT Study: Abdomen, Angiogram Impression: Normal, See EMR Report ( CT ANGIOGRM PULMONARY ARTERIES, CT ANGIOGRAM ABDOMEN - 10/25/2019 INDICATION: shortness of breath TECHNIQUE: Axial CT images were obtained after administering intravenous contrast. Three- dimensional angiographic images were generated. COMPARISON: 10/21/2019 FINDINGS: CHEST: There is no pulmonary embolism. Heart and great vessels are normal. No adenopathy. There is a benign calcified granuloma in the left lower lobe. No infiltrates. The airways are clear. There are moderate degenerative changes of the spine. No acute or suspicious bony lesion. ABDOMEN: There is moderate fatty change of the liver stable from prior. The gallbladder, pancreas, spleen, adrenals, and kidneys are normal. No bowel obstruction or inflammation. Normal appendix. The abdominal aorta and all of its branches are patent. No aneurysm or stenosis. No significant vascular disease. There are moderate degenerative changes of the spine. No acute or suspicious bony lesion. IMPRESSION: Fatty change of the liver. No acute process. Normal vascularity throughout the chest and abdomen. This exam was performed using automated exposure control, adjustment of mA or kV according to patient size, and/or use of iterative reconstruction technique Electronically signed by Everton Luis 10/25/2019 9:42 PM 10/25/192141 Interpreting Physician: Everton Luis MD Dictated Date/Time: 10/25/192136 cc: Charles Lemus MD; Dre Cardoso) Comparison with other Films: no changes Departure - Departure Date of Disposition Decision: 10/25/19 Time of Disposition Decision: 22:19 DIAGNOSIS: Chest pain of uncertain etiology, Malignant hypertension with congestive heart failure Disposition: ADMITTED INPATIENT 09 Certified Medical Emergency: Emergent Condition: Fair Referrals and Follow-Ups: Dre Cardoso CRNP [Primary Care Provider] - - Critical Care Note This patient required my direct & personal management of CC.: Yes Total Time (mins): 45 Critical Care Statement: This patient required my direct personal management to treat or rule out processes, the absence of which, could potentiallly result in sudden, clinically significant life or limb threatening deterioration. Attestation - Physician/ ASTRID Attestation Patient care was provided by Advanced Practice Provider:: No The physician spent face to face time with patient:: Yes Advanced Practice Provider documentation review:: Supervising physician onsite and consulted in the evaluation and care of this patient. The physician did have a face to face encounter with the patient. This chart was documented by the indicated scribe, (Fern Sierra, Tamika) and accurately reflects the services I performed and decisions made by me, Charles Lemus MD, as attested by the provider's signature.
--- NOTE | 2019-10-25 23:04 | EKG Report ---
Test Performed on : 10/25/2019 10:07:48 PM Test Reason : short of breath Blood Pressure : / mmHG Vent. Rate : 096 BPM Atrial Rate : 096 BPM P-R Int : 160 ms QRS Dur : 074 ms QT Int : 356 ms P-R-T Axes : 048 010 022 degrees QTc Int : 449 ms Normal sinus rhythm. Possible Left atrial enlargement Borderline ECG When compared with ECG of 21-OCT-2019 19:58, (Unconfirmed) No significant change was found Unconfirmed Result
[2019-10-25] MEDS: NS 1,000 ML IV SCH (23:30)
[2019-10-26 05:55] LABS: CHOLESTEROL 158 mg/dL (0-200); HDL 87 mg/dL (35-55); LDL 58 mg/dL; TRIGLYCERIDES 66 mg/dL (39-160); VLDL 13 mg/dL
[2019-10-26] MEDS ORDERED: SODIUM CHLORIDE 0.9% INJ SCH (06:00)
[2019-10-26] MEDS ORDERED: ZOFRAN IV PRN (06:00)
[2019-10-26] MEDS ORDERED: NITROGLYCERIN TOP PRN (07:27)
[2019-10-26] MEDS ORDERED: PHENERGAN PO PRN (07:27)
[2019-10-26] MEDS ORDERED: LIBRIUM PO PRN (07:27)
[2019-10-26 07:33] LABS: CK INDEX 0.4 (0.0-2.5); CK-MB 2.82 ng/mL (0.0-5.0)
[2019-10-26 08:30] LABS: IRON SATURATION 19 %; TIBC 169 ug/dL; TOTAL IRON 32 ug/dL (53-167); UNBOUND IRON 137 ug/dL (112-346)
[2019-10-26] MEDS: DUONEB (A & A) INH PRN ×3 (08:31→16:00)
--- NOTE | 2019-10-26 08:58 | HISTORY AND PHYSICAL ---
CHIEF COMPLAINT: Abdominal discomfort. HISTORY OF PRESENT ILLNESS: Mr. Jerome Ac is a 59-year-old male who has a history of hypertension, as well as diabetes mellitus. He presented to the hospital because of discomfort he has in the region of his epigastric area. This has been going on for about 1 week. He describes the discomfort as quivering. He has had associated nausea as well as hiccups. He also describes the discomfort extending into his chest area to the point where he has chest pain, as well as shortness of breath. The patient was seen and evaluated in the ER. His D-dimer level was found to be elevated at 0.6. He had a pulmonary arteriogram done which did not reveal any evidence of PE. Also of note, his proBNP level was elevated at 1414. Chest x-ray, no acute disease. CT of the abdomen, no acute findings noted. The patient will be admitted to the floors for further management. PAST MEDICAL HISTORY: Hypertension, depression, as well as alcoholism. SOCIAL HISTORY: The patient drinks alcohol. No drug use. No cigarette smoking. ALLERGIES: No known drug allergies. PAST SURGICAL HISTORY: He has had cataract surgery. FAMILY HISTORY: Cataracts. MEDICATIONS: His medications include the following: Lisinopril 10 mg p.o. daily, Coreg 6.25 mg p.o. twice a day, folic acid 1 mg p.o. daily, pantoprazole 40 mg p.o. daily, Phenergan 25 every 6 hours p.r.n., sucralfate 1 gram every 6 hours. REVIEW OF SYSTEMS: Constitutional: No fever. He has headaches. Eyes: No blurred vision. ENT: No hearing loss. Respiratory: He does have some cough. Genitourinary: No dysuria. Musculoskeletal: He has joint pains. Dermatology: No skin lesions. Hematology: No bleeding problems. Endocrinology: No diabetes or thyroid disease. PHYSICAL EXAMINATION: VITAL SIGNS: On examination, his vital signs are as follows: Temperature 99.2 degrees, pulse 93, respirations 20, oxygen saturation is 98%. HEENT: Atraumatic, normocephalic. Patient is anicteric. No oral lesions. NECK: No lymphadenopathy or thyromegaly. CARDIOVASCULAR: S1, S2. RESPIRATORY SYSTEM: Has evidence of good air entry bilaterally. ABDOMEN: Soft, nontender. No masses felt. EXTREMITIES: No evidence of edema. CENTRAL NERVOUS SYSTEM: No obvious focal deficit noted. LABORATORY STUDIES: WBC is 8.61, hematocrit is 35.5 with a platelet count of 192,000. Sodium 137, potassium 3.5, chloride is 98, bicarbonate 25, BUN is 12, creatinine 1.1. CTA of the chest and abdomen, no abnormalities noted. Chest x-ray, no acute findings. ASSESSMENT AND PLAN: 1. Abdominal pain. Query etiology. I will maintain the patient on proton pump inhibitor, analgesic agents, as well as antiemetics. Consult with Gastroenterology for possible upper gastrointestinal endoscopic studies. 2. Atypical chest pain. Place patient on telemetry. Follow up on serial cardiac enzymes. We will for gastroesophageal reflux disease by maintaining the patient on proton pump inhibitor. Gastrointestinal evaluation for possible esophagitis. 3. Alcoholism. We will maintain patient on delirium tremens prophylaxis, along with thiamine, as well as folic acid. Check magnesium and phosphorus level. Replace those if needed. Check CPK level. 4. Hypertension. Optimize blood pressure control. 5. Deep vein thrombosis prophylaxis. Sequential compression devices. 6. Gastrointestinal prophylaxis. Proton pump inhibitor. cc: Gonzalez Proctor MD [facility]
[2019-10-26] MEDS ORDERED: LOVENOX SUBQ SCH (09:00)
[2019-10-26 09:30] LABS: CK INDEX 0.3 (0.0-2.5); CK-MB 2.15 ng/mL (0.0-5.0)
[2019-10-26] MEDS: PROTONIX IV SCH (10:31)
[2019-10-26] MEDS: ASPIRIN PO SCH (10:50)
[2019-10-26] MEDS: NS 1,000 ML IV SCH (10:50)
[2019-10-26] MEDS: THIAMINE 100 MG in NS 50 ML IV SCH (10:50)
[2019-10-26] MEDS: COREG PO SCH ×2 (10:51→23:16)
[2019-10-26] MEDS: FOLIC ACID 1 MG in NS 50 ML IV SCH (10:51)
[2019-10-26] MEDS: CENTRUM TABLET PO SCH (10:51)
[2019-10-26] MEDS: PRINIVIL PO SCH (10:51)
[2019-10-26] MEDS: CARAFATE LIQUID PO SCH ×3 (10:51→23:16)
[2019-10-26] MEDS: FOLIC ACID PO SCH (10:51)
[2019-10-26] MEDS: PROTONIX PO SCH (10:52)
--- NOTE | 2019-10-26 15:43 | GASTROENTEROLOGY CONSULTATION ---
DATE: 10/26/2019 REASON FOR CONSULT: Abdominal pain. HISTORY OF PRESENT ILLNESS: Mr. Ac is a 59-year-old male who has a history of hypertension , depression, alcoholism and legally blind. The patient mentioned that he was not able to eat anything since the last 2 weeks. He has been having abdominal pain, hiccups, burping and feels like his stomach is getting contracted. The patient presented to the ER yesterday complaining of hiccups, burping, abdominal pain, shortness of breath and difficulty breathing. He also mentioned that he sometimes feels like he was gasping for air with chest pain, headaches, ringing in ears and water drooling out from his mouth. He has also mentioned that he had fever and chills. The patient mentioned that his emesis was clear liquids. He had come to the hospital on and he was discharged on Friday. The patient did mention that he takes Tylenol as needed and also 6 months back he had taken 2 packs of BC Powder. A chest x-ray on admission had shown that the patient has no acute disease. His abdominal arteriogram showed fatty changes of the liver. No acute processes. Normal vascularity throughout the chest and the abdomen. The patient's influenza screen has been negative. PAST MEDICAL HISTORY: Hypertension, depression, alcoholism, legally blind, shortness of breath, palpitations. SURGICAL HISTORY: Patient had cataract surgery bilaterally. SOCIAL HISTORY: The patient is single. He is on disability. He has denied smoking but he drinks a pint of vodka and 6 packs of beer on a regular basis. FAMILY HISTORY: Significant for stomach problems and diabetes. ALLERGIES: Patient has no known drug allergies. HOME MEDICATIONS: Lisinopril 10 mg daily, Coreg 6.25 mg p.o. twice a day, Protonix 40 mg daily, Carafate 1 g every 6 hours, folic acid 1 mg daily, and Phenergan 25 mg p.o. every 6 hours as needed. REVIEW OF SYSTEMS: As per HPI. Otherwise, 12 point review of system is negative physical. PHYSICAL EXAMINATION: Vital Signs: Temperature 98.1, pulse 101, respirations 18, blood pressure 134/92, oxygen saturation 99% on room air. Patient's weight is 153 pounds. BMI is 22.7 kg/m2. General: He is alert, oriented x3, and in no acute distress. Answering questions appropriately. HEENT: Pale conjunctivae. No icterus. PERRL. Neck: Supple. Lungs: Clear to auscultation. Cardiovascular: The patient is tachycardic. Abdomen: Abdomen is distended and tender in the epigastric and mid abdominal area. Active bowel sounds heard in all 4 quadrants. Extremities: No clubbing, no cyanosis, no edema. Pedal pulses 2+ present bilaterally. Neurologic: The patient is alert, oriented x3. Nonfocal. Cranial nerves 2-12 grossly intact. LABORATORY DATA: WBCs 8.61, RBC 3.45, hemoglobin 11.6, hematocrit is 35.5, platelet count is 192,000. PT 13.2, INR is 0.99. The patient's chemistries are from 10/25. Sodium is 137, potassium is 3.5, chloride is 98, carbon dioxide is 27, anion gap 12, BUN 12, creatinine is 1.1, glucose 106, calcium is 9.0, total bilirubin is 0.70, AST 16, ALT 18, alkaline phosphatase is 100. Ammonia is 14, iron is 32, TIBC is 169, creatine kinase is 679, CK-MB is 2.15, troponin is 16. Urinalysis has shown urine protein of 50, ketones of 10, small amount of bilirubin. The patient's pulmonary and abdomen arteriogram has shown fatty changes of the liver. No acute process. Normal vascularity throughout the chest and the abdomen and chest x-ray has shown no acute disease. IMPRESSION AND PLAN: 1. Abdominal pain. 2. Nausea and vomiting. 3. Dysphagia 4. Alcohol abuse. 5, Hypertension. PLAN: Mr. Ac is a 59-year-old male with a history of hypertension and alcohol abuse. GI has been consulted for his abdominal pain. The patient is currently receiving IV fluids normal saline at 75 mL. He is receiving Protonix 40 mg IV daily. For his nausea and vomiting he is on Zofran 4 mg as needed. The patient is on folic acid 100 mL IV and on thiamine at 112 mL IV. The plan is to do an EGD tomorrow. We have discussed the risks, benefits, and alternatives of the procedure to the patient. The patient has acknowledged understanding of the plan of care. Further plan of care will be based on the EGD findings. This plan was discussed with Dr. Pires. Thank you for your consult. Please call us for any further questions or concerns. Dictated by XUAN Cao for Heriberto Pires MD cc: Gonzalez Proctor MD MTDD
[2019-10-26 16:59] LABS: CK INDEX 0.2 (0.0-2.5)
--- NOTE | 2019-10-26 17:50 | PROGRESS NOTE ---
DATE: 10/26/2019 SUBJECTIVE: Mr. Ac was admitted early this morning, came in with abdominal discomfort. He is seen by XUAN Angeles. Mr. Ac is a 59-year-old with a history of hypertension, diabetes mellitus, presented to the hospital because of discomfort in the region of his esophagus and epigastric area and mid-chest. It has been going on for about a week. Describes discomfort as quivering. When he swallows he feels discomfort. He has frequent hiccups and so came to the emergency room. He denies fever or chills. No hemoptysis. PAST MEDICAL HISTORY: History of hypertension, depression, as well as history of alcoholism. PAST SURGICAL HISTORY: Cataract surgery. I think the plan is to do an EGD tomorrow. OBJECTIVE: Vital signs: He remains afebrile. Temperature 99.6 degrees, pulse 90, respirations 16, blood pressure 134/99. HEENT: Pupils are equal and round. Lungs: Clear in all lung howard. Cardiovascular: Regular rhythm and rate without murmur or S3. Abdomen: Soft. Skin: Warm and dry. LABORATORY: Note, his ammonia level was 682, repeat was 442. His liver enzymes are unremarkable. Phosphorus was 2.0. Electrolytes otherwise unremarkable. Magnesium was 1.5. Abdominal arteriogram: Fatty change in the liver. No acute process. Normal vascularity throughout the chest and abdomen. Chest chest x-ray: No acute disease. Pulmonary arteriogram: Fatty change in the liver. No acute process. Normal vascularity throughout the chest and abdomen. There was no pulmonary embolism. Moderate fatty change in the liver, stable from prior exam. ASSESSMENT AND PLAN: 1. So it sounds like he has some esophageal discomfort, possibly esophageal spasm. Not clear why he has significant dysphagia, but he will get an EGD tomorrow. 2. Hypertension. Blood pressure well controlled. 3. History of alcohol. He is on thiamine. 4. His phosphorus was a little low. cc: MD Gonzalez Short MD
[2019-10-27] MEDS: NS 1,000 ML IV SCH ×2 (00:54→17:41)
[2019-10-27] MEDS: CARAFATE LIQUID PO SCH ×4 (04:28→23:42)
[2019-10-27] MEDS ORDERED: DIPRIVAN 1% ONE (06:33)
[2019-10-27] MEDS: FOLIC ACID 1 MG in NS 50 ML IV SCH (06:33)
[2019-10-27] MEDS: PROTONIX IV SCH (06:34)
[2019-10-27] MEDS: PROTONIX PO SCH ×3 (06:34→23:42)
[2019-10-27 07:42] LABS: MAGNESIUM 1.4 mg/dL (1.5-2.7); PHOSPHORUS 2.6 mg/dL (2.7-4.5)
--- NOTE | 2019-10-27 09:09 | ENDOSCOPY OPERATIVE NOTE ---
[facility] ENDOSCOPY OPERATIVE NOTE , EGD PROCEDURE REPORT EXAM DATE: 10/27/2019 PATIENT NAME: Jerome Ac MR#: [id number] BIRTHDATE: 1960 ATTENDING: Heriberto Pires MD STATUS: inpatient [employer] ATTENDANT: INDICATIONS: The patient is a 59 yr old male here for an EGD due to epigastric abdominal pain, dysph agia, pharyngeal-esophageal , and heartburn. PROCEDURE PERFORMED: EGD w/ biopsy MEDICATIONS: Per Anesthesia ESTIMATED BLOOD LOSS: None CONSENT: The patient understands the risks and benefits of the procedure and understands that these r isks include, but are not limited to: sedation, allergic reaction, infection, perforation and/or bleeding. Alternative means of evaluation and treatment include, among others: physical exam, x-rays, and/or surgical intervention. The patient elects to proceed with this endoscopic procedure. DESCRIPTION OF PROCEDURE: During pre-op preparation period all mechanical and medical equipment was c hecked for proper function. Hand hygiene and appropriate measures for infection prevention was taken. After the risks, benefits and alternatives of the procedure were thoroughly explained, Informed consent was verified, confirmed and timeout was successfully executed by the treatment team. The patient was anesthetized with topical anesthesia and the [id number] ([id number]) endoscope was introduced through the mouth and advanced to the second portion of the duoden um. Retroflexion was performed in the stomach and revealed a hiatal hernia. The gastroscope was then slowly withdrawn and removed. The patient's toleration of the procedure was excellent. ESOPHAGUS: Esophagitis was found in the upper third of the esophagus and lower third esophagus. Esop hagitis was [place] Class D: Mucosal breaks involving more than 75% of esophageal circumference. A biopsy was performed using cold forceps. Sample sent for histology. A Schatzki ring was found at the gastroesophageal junction and was widely open. A biopsy was performed using cold forceps. Sample sent for histology. STOMACH: An erosion was found in the gastric antrum. Mild gastritis (inflammation) was found in the gastric antrum. A biopsy was performed using cold forceps. Sample sent for histology. DUODENUM: The duodenum was normal. ADVERSE EVENTS: There were no complications. IMPRESSIONS: 1. Esophagitis in the upper third of the esophagus and lower third esophagus; biops y was performed 2. Schatzki ring was found at the gastroesophageal junction; biopsy was performed 3. Erosion was found in the gastric antrum 4. Gastritis (inflammation) was found in the gastric antrum; biopsy was performed 5. The duodenum was normal RECOMMENDATIONS: 1. Await biopsy results 2. Advance diet as tolerated 3. Start pantoprazole 40mg PO BID and continue for 3 months 4. Avoid NSAIDs 5. Repeat EGD in 3 months to assess for healing 6. Patient okay to be discharged from GI perspective. Followup in 4-6 weeks REPEAT EXAM: Heriberto Pires MD eSigned: Heriberto Pires MD 10/27/2019 9:11 AM CC: CPT CODES: 27912 Upper gastrointestinal endoscopy including esophagus, stomach, and either the du odenum and/or jejunum as appropriate; with biopsy, single or multiple ICD CODES: 789.06 Abdominal pain,epigastric 787.20 Dysphagia,unspecified 787.1 Heartburn 553.3 Diaphragmatic hernia without mention of obstruction or gangrene 530.10 Esophagitis,unspecified 530.3 Stricture and stenosis of esophagus 537.9 Unspecified disorder of stomach and duodenum 535.50 Unspecified gastritis and gastroduodenitis (without hemorrhage) The ICD and CPT codes recommended by this software are interpretations from the data that the [facility] staff has captured with the software. The verification of the translation of this report to the ICD and CPT co tayo and modifiers is the sole responsibility of the health care institution and practicing physician where this report was generated. [employer] will not be held responsible for the validity of the ICD and CPT codes i ncluded on this report. [facility] assumes no liability for data contained or not contained herein. CPT is a registered tra demark of the [employer]. PATIENT NAME: Jerome Ac MR#: [id number]
[2019-10-27] MEDS: THIAMINE 100 MG in NS 50 ML IV SCH (09:29)
[2019-10-27] MEDS: CENTRUM TABLET PO SCH (09:30)
[2019-10-27] MEDS: COREG PO SCH ×2 (09:30→23:43)
[2019-10-27] MEDS: ASPIRIN PO SCH (09:30)
[2019-10-27] MEDS: PRINIVIL PO SCH (09:31)
[2019-10-27] MEDS: FOLIC ACID PO SCH (09:32)
--- NOTE | 2019-10-27 14:22 | PROGRESS NOTE ---
DATE: 10/27/2019 SUBJECTIVE: Mr. Ac does feel better. EGD done per Dr. Pires. Esophagitis found in the upper third esophagus and lower third of the esophagus. Esophagitis was LA class D. Mucosa breaks involving more than 75% of the esophageal circumference. Biopsy performed using cold forceps. A Schatzki ring was found at the gastroesophageal junction and was widely open. Biopsy performed as well. Had some mild gastritis and erosion found in the gastric antrum, so he is on proton pump inhibitor and Carafate I believe. He had just finished taking a shower. OBJECTIVE: Vital signs: Temperature 98.3 degrees, pulse 105, respirations 18, blood pressure 129/91. HEENT: Pupils equal, round and reactive to light and accommodation. ASSESSMENT AND PLAN: 1. It sounds like it is consistent with esophageal spasm and dysphagia. 2. Hypertension. Blood pressure well controlled. 3. History of alcohol. Continues thiamine. He is on a regular diet. We will see if we can let him go home tomorrow. cc: MD Gonzalez Short MD
[2019-10-28] MEDS: CARAFATE LIQUID PO SCH (04:42)
[2019-10-28] MEDS: FOLIC ACID 1 MG in NS 50 ML IV SCH (05:30)
[2019-10-28] MEDS: PROTONIX PO SCH ×2 (05:30→07:00)
[2019-10-28] MEDS: NS 1,000 ML IV SCH (07:00)
[2019-10-28] MEDS: THIAMINE 100 MG in NS 50 ML IV SCH (08:01)
[2019-10-28] MEDS: COREG PO SCH (08:56)
[2019-10-28] MEDS: PRINIVIL PO SCH (08:56)
[2019-10-28] MEDS: FOLIC ACID PO SCH (08:56)
[2019-10-28] MEDS: ASPIRIN PO SCH (08:56)
[2019-10-28] MEDS: CENTRUM TABLET PO SCH (08:56)
--- NOTE | 2019-10-28 09:35 | DISCHARGE SUMMARY ---
ADMISSION DATE: 10/25/2019 DISCHARGE DATE: 10/28/2019 HISTORY AND HOSPITAL COURSE: He is followed by XUAN Angeles. He is a 59-year-old who has a history of hypertension, diabetes mellitus type 2. He presented to the hospital because of discomfort in the epigastric area. Been going on for about a week. Describes this discomfort as quivering. He has had discomfort for a while in the epigastric area, a lot of belching, abdominal discomfort and esophageal discomfort with swallowing. Admitted to the hospital, evaluated by GI. EGD performed and they found erosion in the gastric antrum, mild gastritis found in the gastric antrum. A biopsy performed. They found esophagitis in the upper third and lower third of the esophagus with mucosal breaks involving more than 75% of the esophageal circumference. He was put on high-dose proton pump inhibitors, and he had already been on some Carafate, which we will continue. He was able to tolerate liquids. Blood pressure remained overall controlled, hemodynamically stable, and we felt like he could go home on 10/28/2019. DISCHARGE MEDICATIONS: He will take Coreg 6.25 mg b.i.d., aspirin 325 mg a day, folic acid 1 mg daily, Prinivil 10 mg a day, multivitamin 1 a day, Protonix 40 mg twice a day, and Carafate 1 gram p.o. every 6 hours. cc: MD Gonzalez Short MD
[2019-10-28 10:04] VITALS: BP 149/93
--- NOTE | 2019-10-28 14:24 | GASTROENTEROLOGY PROGRESS NOTE ---
DATE: 10/28/2019 SUBJECTIVE: Mr. Ac is a 59-year-old male. He was sitting in bed. He has denied any nausea, vomiting, but mentioned having mild abdominal tenderness. OBJECTIVE: Vital Signs: Temperature 98.8 degrees, pulse 90, respirations 20, blood pressure 149/93, oxygen saturation 98% on room air. The patient's weight is 153 pounds, BMI is 22.7 kg/m2. General: He is alert and oriented x3, and in no acute distress. HEENT: Pale conjunctivae. No icterus. PERRL. Neck: Supple. Lungs: Clear to auscultation. Cardiovascular: Regular rate and rhythm. Abdomen: Mildly distended. Tender. Active bowel sounds heard in all 4 quadrants. Extremities: No clubbing, no cyanosis, no edema. Pedal pulses 2+ present bilaterally. Neurologic: He is alert and oriented x3. LABORATORY DATA: The patient has no new hematology. His labs are from 10/25/2019. WBC 8.61, RBC 3.45, hemoglobin 11.6, hematocrit is 35.5, platelet count is 192,000. The patient's phosphorus is 2.6, magnesium is 1.6. IMPRESSION AND PLAN: 1. Abdominal pain. 2. Nausea and vomiting. 3. Dysphagia. 4. Esophagitis 5. Schatzki's Ring 6. Alcohol abuse PLAN: Mr. Ac is a 59-year-old, male with a history of hypertension and alcohol abuse. GI is following him for his abdominal pain. An endoscopy was done yesterday. Findings showed that the patient has esophagitis in the upper third esophagus and lower third esophagus. Biopsy was performed. Schatzki's ring was found in the gastroesophageal junction. Biopsy was performed. Erosion was found in the gastric antrum, gastritis in the gastric antrum. Biopsy was performed. The duodenum was normal. The patient has discharge orders to go home today. He is on PPIs 40 mg p.o. twice a day, and will continue this for 3 months. The patient has been advised to avoid NSAIDs, and the patient has been counseled to stop consuming alcohol. The patient will need a repeat EGD in 3 months to assess for the healing of his esophagitis and gastritis. We will follow him up as an outpatient in 4 to 6 weeks. This plan has been discussed with Dr. Hatch. Please call us for any further questions or concerns. Dictated by XUAN Cao for Jose Hatch MD cc: MD Gonzalez Elam MD [facility]Grant
== END 2019-10-28 10:18 | disposition home or self-care (01) | DRG 392 ==
LOC: ED 14:24 → EDIPHOLD 10-26 01:19 → SUATTDRO 10-26 01:19 → 4N 10-26 09:02
PROVIDERS: ADMIT Internal Medicine; ATTEND Emergency Medicine

== ENCOUNTER 2019-12-31 02:40 | Inpatient (IN) ==
[2019-12-31] MEDS ORDERED: PROTONIX 80 MG in NS 80 ML IV ONE (03:06)
[2019-12-31] MEDS ORDERED: SODIUM CHLORIDE 0.9% INJ ONE ×2 (03:06→07:27)
[2019-12-31] MEDS ORDERED: MORPHINE IV ONE ×2 (03:06→04:26)
[2019-12-31] MEDS ORDERED: NS 1,000 ML IV ONE ×4 (03:06→05:59)
[2019-12-31] MEDS ORDERED: PEPCID IV ONE (03:06)
[2019-12-31] MEDS ORDERED: ZOFRAN IV ONE (03:06)
[2019-12-31] MEDS ORDERED: ATIVAN IV ONE ×3 (03:08→07:18)
--- NOTE | 2019-12-31 03:45 | PROVIDER DOCUMENTATION ---
HPI-Abdominal Pain/GI Problem - General Chief Complaint: Nausea/Vomiting Stated Complaint: SOB/N/V Time Seen by Provider: 12/31/19 03:00 Source: patient Allergies/Adverse Reactions: Patient Allergies Allergy/AdvReac Type Severity Reaction Status Date / Time No Known Allergies Allergy Verified 10/25/19 20:48 Home Medications: Home Medication List Medication Instructions Recorded Confirmed Last Taken Type LISINOpril [Prinivil] 10 mg PO DAILY 10/21/19 10/25/19 3 Days Ago History ~10/18/19 Carvedilol [Coreg] 6.25 mg PO BID #120 tab 10/23/19 10/25/19 Unknown Rx Folic Acid 1 mg PO DAILY #120 tab 10/23/19 10/25/19 Unknown Rx Promethazine [Phenergan] 25 mg PO Q6H PRN PRN #20 tab 10/23/19 10/25/19 Unknown Rx Multivitamins/Minerals [Centrum 1 ea PO DAILY tab 10/28/19 Unknown Rx Tablet] Pantoprazole [Protonix] 40 mg PO BID@0700,2100 30 Days #60 10/28/19 Unknown Rx tab Sucralfate [Carafate Liquid] 1 gm PO Q6H 30 Days #120 udc 10/28/19 Unknown Rx - History of Present Illness-ABD Nature of Presenting Problems: C/O Nausea/vomiting since noon, turned coffee grounds, then dark red blood this evening. No diarrhea. No chills. States his throat is very sore Abdominal Pain Onset Location: reports: epigastric Pain Radiation: reports: chest (and throat) Quality of Pain: reports: burning, sharp, tightness Severity in ED: reports: severe Onset/Duration: reports: gradual, 24 hours ago (noon yesterday) Timing: reports: still present, constant, getting worse Activities at Onset: reports: possible bad food Exposure to sick contacts?: No Modifying Factors: improves with: nothing. worse with: movement, vomiting Associated Symptoms: reports: anxiety, chest pain, diaphoresis, heartburn, loss of appetite, malaise, nausea, shortness of breath, vomiting, weakness, other (ST, dysphagia). denies: constipation, diarrhea, dizziness, fatigue, fever/chills, genitourinary problems, headaches, muscle aches, sinus congestion/drainage, rash, seizure, sensory/motor loss, pain with inspiration, swelling/mass in abdomen, syncope Last BM: 2 days ago Dark Stools Present?: reports: none noticed Rectal Bleeding: reports: none Rectal Pain: reports: none Emesis Description: reports: red blood, coffee grounds Bruising or Bleeding Gums?: No Similar Symptoms Previously?: Yes (2 months ago, admitted to hospital for bleeding gastric ulcer) Recently seen or treated by another doctor?: No (saw judieistLexis for EGD and Hatch in hospital) Review of Systems - Adult - REVIEW OF SYSTEMS - ADULT Constitutional: reports: no symptoms reported Eyes: reports: no symptoms reported Ears, Nose, Mouth & Throat: reports: see HPI, hoarseness, throat pain, throat swelling Cardiovascular: reports: see HPI, chest pain. denies: edema, heart murmur, irregular heart rate, orthopnea, palpitations, poor circulation, PND, syncope Respiratory: reports: see HPI, cough, shortness of breath. denies: excessive sputum production Gastrointestinal: reports: see HPI, abdominal pain, hematemesis, constipation, difficulty swallowing, frequent heartburn, nausea, poor appetite, vomiting. denies: diarrhea, rectal bleeding Genitourinary: reports: no symptoms reported Musculoskeletal: reports: no symptoms reported Integumentary: reports: no symptoms reported Neurological: reports: no symptoms reported Psychiatric: reports: no symptoms reported Endocrine: reports: no symptoms reported Hematologic/Lymphatic: reports: no symptoms reported Allergic/Immunologic: reports: no symptoms reported All Other Systems: Reviewed and Negative Past History - Adult - PAST MEDICAL HISTORY-ADULT Review of Records: reports: Old Records Reviewed (admission 11/01, EGD found gastric ulcer, had normal renal function), Nursing Assessment Review, Medication s Reviewed, Social history reviewed & non-contributory. Major Childhood Illnesses: reports: denies history Cardiovascular: reports: cardiac disease, CHF, HTN Respiratory: reports: denies history Gastrointestinal: reports: colitis (Ulcerative), GERD, GI bleed, ulcer Obstetrical/Gynecological: reports: denies history Genitourinary: reports: denies history Musculoskeletal: reports: other (back pain) Neurological: reports: denies history Psychiatric: reports: anxiety, depression Endocrine/Immune: reports: denies history Other Conditions: reports: blindness - PRIOR SURGERIES/PROCEDURES Surgical/Procedure History: reports: EGD, colonoscopy - IMMUNIZATION STATUS Childhood Immunizations: See Nurse Assessment Flu Vaccine: See Nurse Assessment - FAMILY HISTORY Family History: reviewed, not pertinent - SOCIAL HISTORY Smoking: non-smoker Substance Use: alcohol Alcohol Use Frequency: 5-6 times a week Number of drinks per typical drinking period:: 5-10 drinks Living Situation: alone Physical Exam-General - PHYSICAL EXAM-ADULT Initial Vital Signs Reviewed: Yes (VSSAF, initially at triage) - CONSTITUTIONAL General Appearance: moderate distress, thin, anxious, other (frequent throat clearing) - EYES Eyes: PERRL/EOMI, pale conjunctivae - HEAD, EARS, NOSE, MOUTH & THROAT HENMT: normocephalic/atraumatic, moist mucous membranes, dental decay, other (throat very red, no pooling of secretions) - NECK Neck: non-tender, full range of motion, supple, normal inspection - RESPIRATORY Respiratory: chest non-tender, no pleuratic chest pain, no respiratory distress, no accessory muscle use, rhonchi (occasional scattered), increased rate, other (no Jasmina's crunch) - CARDIOVASCULAR Cardiovascular: regular rate, rhythm, no edema, no gallop, no JVD, no murmur, tachycardia - GASTROINTESTINAL (ABDOMEN) Abdominal Exam: normal bowel sounds, soft, no organomegaly, no pulsatile mass, guarding, tenderness (epigastrum). negative: rebound, mass, hepatomegaly, splenomegaly, McBurney's point tenderness, Das's sign, obturator sign - GENITOURINARY Male Genitalia: normal genitalia Rectal Exam: normal exam, normal rectal tone. negative: hemorrhoids, tenderness Hemoccult Exam: heme negative stool - LYMPHATIC Lymphatic: no adenopathy - MUSCULOSKELETAL Back Exam: normal inspection, no vertebral tenderness. negative: decreased rang e of motion Extremity: normal range of motion, non-tender, normal gait, normal inspection, no pedal edema, no calf tenderness Peripheral Pulses: radial (R): 1+, radial (L): 1+ - SKIN Integumentary: normal turgor, diaphoresis, pallor - NEUROLOGIC Neurologic: plant pathologist II-XII nml as tested, no motor/sensory deficits, other (resting tremor) - PSYCHIATRIC Psych/Mental Status: normal thought content, normal thought process, oriented x 3, anxious, tearful Progress - PLAN OF CARE/RESULTS Progress/Plan/Lab Results: Vital Signs - 8 hr 12/31/19 02:49 Temperature 97.5 F L Pulse Rate 88 Respiratory Rate 20 Blood Pressure 108/78 O2 Sat by Pulse Oximetry 100 Orders Category Date Time Status NG/OG/Feeding Tube Insertion ORDERED Care 12/31/19 03:07 Active Nursing- Obtain EKG once Care 12/31/19 03:04 Active CHEST-PORTABLE [RAD] Stat Exams 12/31/19 03:05 Taken ALCOHOL BLOOD Stat Lab 12/31/19 03:12 Received AMMONIA [CHEM] Stat Lab 12/31/19 03:12 Received BLOOD CULTURE [BLDCUL] Stat Lab 12/31/19 03:12 Ordered CBC WITH ELECTRONIC DIFF [HEME] Stat Lab 12/31/19 03:12 Results COMPREHENSIVE METABOLIC PANEL [CHEM] Stat Lab 12/31/19 03:12 Received LACTATE, PLASMA [CHEM] Stat Lab 12/31/19 03:12 Received MAGNESIUM [CHEM] Stat Lab 12/31/19 03:12 Received OCCULT BLOOD SCREENING [STOOL] Stat Lab 12/31/19 03:04 Uncollected PROTIME WITH INR [COAG] Stat Lab 12/31/19 03:12 Received PTT [COAG] Stat Lab 12/31/19 03:12 Received TROPONIN T HIGH SENSITIVITY Stat Lab 12/31/19 03:12 Received TYPE & SCREEN [BBK] Stat Lab 12/31/19 03:12 Received 0.9% Sodium Chloride Inj [Ns] 1,000 ml Med 12/31/19 03:06 Active IV 999 mls/hr 0.9% Sodium Chloride Inj [Ns] 1,000 ml Med 12/31/19 03:06 Active IV 999 mls/hr Famotidine [Pepcid] Med 12/31/19 03:06 Discontinued 20 mg IV NOW ONE Lorazepam [Ativan] Med 12/31/19 03:08 Discontinued 1 mg IV NOW ONE Morphine Med 12/31/19 03:06 Discontinued 4 mg IV NOW ONE Ondansetron [Zofran] Med 12/31/19 03:06 Discontinued 8 mg IV NOW ONE Pantoprazole [Protonix] 80 mg Med 12/31/19 03:06 Discontinued 0.9% Sodium Chloride Inj [Ns] 80 ml IV NOW Sodium Chloride 0.9% Med 12/31/19 03:06 Discontinued 5 - 10 ml INJ NOW ONE GI Bleed (possible) Stat Oth 12/31/19 03:04 Ordered EKG [EKG] Stat Ther 12/31/19 03:04 Ordered Result Diagrams: 12/31/19 03:12 12/31/19 03:12 - REASSESSMENT Reassessment #1 Time Reassessed: 04:38 Status: improving (Given IVF boluses, IV protonix, IV morphine/zofran, IV pepcid. Lactate very high, leukocytosis, tachycardia and tachypneia, meets criteria for SEVERE SEPSIS, without shock. Has been cultured, given Zosyn and Vancomycin. For alcoholism, given IV ativan and banana bag.) Reassessment Comment: NG tube placed, 250ml red blood removed. - EKG 1 Time of EKG reading by physician:: 04:10 EKG Read and Signed by:: Charles Lemus EKG Interpretation (*Must complete 3 of following elements*): Abnormal Rate: 134 Rhythm: nsr, tachycardic [place]: normal QRS: other (high voltage) [place] Interval: normal ST Wave: non-specific ST changes Comments: artifact present - CT/MRI 1 CT Study: Abdomen (thorax/abd/pelvis) Impression: Abnormal ( per [facility] ([place] Dr. Polk: IMPRESSION: Esophagitis, 2. Diffuse submucosal fat deposition thorought the colon and involving the terminal ileum most likely secondary to chronic inflammation or inflammatory bowel disease. 3. Questionable filling defect within the left main pulmonary artery. 4. Hepatic steatosis.) - CONSULTS/PCP/HOSPITALIST Notification #1 *Consult/PCP/Hospitalist*: Darek paged at [phone] Time Discussed: 05:35 Consult Disposition: Will see in ED, Admit Departure - Departure Date of Disposition Decision: 12/31/19 Time of Disposition Decision: 04:41 DIAGNOSIS: Severe sepsis with acute organ dysfunction, Acute nontraumatic kidney injury GI bleeding Qualifiers: GI bleed type/associated pathology: gastric ulcer Qualified Code(s): K25.4 - Chronic or unspecified gastric ulcer with hemorrhage Alcohol dependence Qualifiers: Substance use status: alcohol-induced anxiety disorder Qualified Code(s): 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 Attestation - Physician/ ASTRID Attestation Patient care was provided by Advanced Practice Provider:: No The physician spent face to face time with patient:: Yes Advanced Practice Provider documentation review:: Supervising physician onsite and consulted in the evaluation and care of this patient. The physician did have a face to face encounter with the patient.
[2019-12-31 03:47] LABS: BASO# 0.02 X1000 (0.0-0.2); BASO% 0.1 % (0.0-0.8); HEMATOCRIT 44.1 % (42.0-52.0); HEMOGLOBIN 14.3 g/dL (14.0-18.0); IMM GRAN# 0.13 X1000 (0.0-0.04); IMM GRAN% 0.5 % (0.0-0.5); LYMPH# 1.19 X1000 (1.2-3.4); LYMPH% 4.8 % (20.5-51.1); MCHC 32.4 g/dL (33-37); MCV 101.8 FL (81-99); MONO# 2.11 X1000 (0.11-0.59); MONO% 8.4 % (1.7-9.3); NEUT# 21.58 X1000 (1.4-6.5); NEUT% 86.2 % (42.2-75.2); PLT 363 X1000 (130-400); RBC 4.33 XMIL (4.7-6.1); RDW 12.9 % (11.5-14.5); WBC 25.03 X1000 (4.8-10.8)
[2019-12-31 03:52] LABS: INR 0.98; PROTIME 13.1 Seconds (11.0-16.0)
[2019-12-31 03:53] LABS: PTT 25.5 Seconds (22.3-41.8)
[2019-12-31 04:17] LABS: ALB/GLOB RATIO 1.2; ALBUMIN 4.9 g/dL (3.5-5.0); CALCIUM 10.5 mg/dL (8.8-10.2); CREATININE 2.1 mg/dL (0.7-1.2); MAGNESIUM 1.5 mg/dL (1.5-2.7); POTASSIUM 5.1 mmol/L (3.5-5.1); TOTAL BILIRUBIN 0.82 mg/dL (0.20-1.00); TOTAL PROTEIN 9.1 g/dL (6.3-8.3)
[2019-12-31] MEDS ORDERED: ZOSYN 4.5 GM in NS 100 ML IV ONE (04:22)
[2019-12-31] MEDS ORDERED: VANCOMYCIN 1 GM/NS 1 GM/250 ML IVPB IV ONE (04:23)
[2019-12-31] MEDS ORDERED: M.V.I.-12 10 ML, FOLIC ACID 1 MG, MAGNESIUM SULFATE 1 GM, THIAMINE 100 MG in NS 1,000 ML IV ONE (04:26)
--- NOTE | 2019-12-31 04:42 | EKG Report ---
Test Performed on : 12/31/2019 04:03:57 AM Test Reason : tachy Blood Pressure : / mmHG Vent. Rate : 134 BPM Atrial Rate : 134 BPM P-R Int : 144 ms QRS Dur : 070 ms QT Int : 288 ms P-R-T Axes : 071 052 058 degrees QTc Int : 430 ms Sinus tachycardia. Otherwise normal ECG When compared with ECG of 25-OCT-2019 22:07, (Unconfirmed) Nonspecific T wave abnormality no longer evident in Inferior leads Unconfirmed Result
[2019-12-31] MEDS ORDERED: COMPAZINE ONE (05:54)
[2019-12-31] MEDS ORDERED: NS 1,000 ML ONE (05:54)
[2019-12-31] MEDS ORDERED: ATIVAN IM ONE (05:58)
[2019-12-31] MEDS ORDERED: COMPAZINE IV ONE (05:58)
[2019-12-31 06:03] LABS: ALLEN TEST YES; BE -9.4 mmoll (-3.0-3.0); BLOOD TYPE ARTERIAL; HCO3-(ACT) 17.4 mmoll (20.0-26.0); METHB 1.1 % (0.0-1.5); O2(CT) 13.9 mL/dL (15.0-23.0); PCO2(98.6) 29 mmHg (35-45); PO2(98.6) 53 mmHg (60-100); SAMPLE BLOOD; SAO2 89.2 % (95.0-100.0); THB 11.4 g/dL (11.5-17.4); pH(98.6) 7.33 (7.35-7.45)
[2019-12-31] MEDS ORDERED: ATIVAN ONE (06:03)
[2019-12-31 06:04] LABS: MODALITY CANNULA
[2019-12-31 06:06] LABS: O2HB 86.6 % (95.0-99.0)
[2019-12-31] MEDS ORDERED: QUELICIN IV ONE ×2 (06:08→06:57)
[2019-12-31] MEDS ORDERED: AMIDATE IV ONE (06:08)
[2019-12-31] MEDS ORDERED: AMIDATE ONE (06:13)
[2019-12-31] MEDS ORDERED: QUELICIN ONE ×2 (06:14→06:52)
[2019-12-31] MEDS: DIPRIVAN 1% 1,000 MG/100 ML BOTTLE IV SCH ×7 (06:35→22:45)
[2019-12-31] MEDS ORDERED: NS 250 ML IV ONE (07:12)
[2019-12-31] MEDS ORDERED: KETAMINE IV ONE (07:14)
[2019-12-31] MEDS ORDERED: NS 500 ML IV ONE (07:17)
--- NOTE | 2019-12-31 07:19 | Diag Imaging Result Doc PS360 ---
EXAM: CHEST-PORTABLE HISTORY: vomiting TECHNIQUE: Single view COMPARISON: 10/25/2019 FINDINGS: The lungs are well expanded. The heart is not enlarged. The vessels are not distended. There are no infiltrates. No effusion identified. There is a calcified granuloma in the left costophrenic angle. IMPRESSION: Negative exam. Electronically signed by Vikas Spencer 12/31/2019 7:16 AM
[2019-12-31] MEDS: LEVOPHED 8 MG in D5 1/2 NS 250 ML IV SCH ×2 (07:21→22:33)
--- NOTE | 2019-12-31 07:22 | HISTORY AND PHYSICAL ---
PRIMARY CARE PROVIDER: XUAN Angeles. HISTORY OF PRESENT ILLNESS: Mr. Jerome Ac is a 59-year-old white male with past medical history of hypertension, alcohol abuse, Schatzki's ring last admitted here about a month ago for abdominal pain secondary to gastritis and esophagitis. He comes in today complaining of intractable nausea, vomiting, and coffee-ground emesis about 16 hours ago. He also complains of burning retrosternal pain. He denies any palpitations or lightheadedness. He also complains of mild to moderate dysphagia since the onset of his vomiting to solids and liquids. No fever, no chills. No respiratory complaints. He denies any hematochezia or melanotic stools. No genitourinary complaints. On arrival to our facility, the patient was hypotensive and vomiting coffee-grounds. NG tube was placed. About 400 mL of coffee-ground emesis was collected in the canister. When I saw him, his blood pressure is about 110-120/50-60. Heart rate was persistent in the 140s to 150s. A noncontrast CT scan of the abdomen was done and it showed findings of esophagitis and chronic inflammation of the large bowel and small bowel, but what was most disconcerting was the fact that there was a possible filling defect of the left main pulmonary artery. Also of note, the patient was profoundly hypoxic. On 4 L on a blood gas, his PO2 was 53. The patient was not able to give me a more detailed history because there was NG tube in place, and he was constantly dry heaving. It was also based on the fact that the patient's pCO2 was low at 20. Since the patient was really working hard, we felt we had to preemptively intubate him because he was eventually going to tire out. ALLERGIES: No allergies. HOME MEDICATIONS: Not reconciled. SURGICAL HISTORY: Cataract surgery. SOCIAL HISTORY: The patient is still actively drinking; still drinks at least 6 beers a day. He says he has cut back. FAMILY HISTORY: Notable for heart disease and diabetes. LABORATORY WORK: White count 25,000, hemoglobin and hematocrit 14 and 44, platelets 363 with a left shift. BUN is 17. Creatinine is 2.1, which is up from his baseline of 1.1. Calcium 10.5, magnesium 1.5. Lactate 13.9 and on the blood gas it dropped down to 7. A pH 7.33, pCO2 29, PO2 is 53, saturation of 89. Lactate 7.2, FiO2 of 36. IMAGING STUDIES: Chest film: No infiltrates, normal vascular markings. EXAMINATION: Vital Signs: Heart rate is 144, blood pressure 96/70, respiratory rate is 22 and temperature is 97.5 degrees. He was 92% on 4 liters. General: Middle-aged white male, who is anxious, constantly intermittently dry heaving every 5 minutes. HEENT: Head is normocephalic, atraumatic. Eyes: CRISTINA. EOMI. Anicteric. Not pale. ENT: On exam, patient has an NG tube in the left naris. Oropharyngeal exam shows no exudates or erythema, however it is dry. No sign of cyanosis. Neck: Supple. No JVD or carotid bruit. No thyromegaly. Chest: A few wheezes in the bases, but no crepitations. Good air entry in the bases. Cardiovascular: First and second heart sounds heard. No gallops, murmurs, rubs. Rhythm is regular. Abdomen: Full, soft with mild tenderness in the epigastrium. Bowel sounds are hypoactive. Rectal exam: Deferred at this time. Extremities: The patient has diminished pulse volumes, regular, symmetrical. No edema, clubbing or peripheral cyanosis. Neurologic exam: No gross focal deficits. Skin: Intact with good turgor. Muscular exam: Grossly unremarkable. The patient has fine tremors in his hands. ASSESSMENT: 1. Upper gastrointestinal bleed probably secondary to esophagitis and gastritis. 2. Acute kidney injury, probably secondary from depleted intravascular volume while taking JORDI inhibitor. 3. Leukocytosis. 4. Hypotension. 5. Sepsis, probably secondary to colitis or leukocytosis could be reactive from intractable vomiting. 6. Alcohol abuse. 7. Acute respiratory failure, probably with a huge ventilation perfusion mismatch highly suspicious for pulmonary embolism. PLAN: The patient is undergoing intubation at this time. We will put on ventilator for supportive care at this point in time. Because of patient's underlying upper GI bleed, I am extremely hesitant to start patient on anticoagulation. Will aggressively hydrate patient and repeat BMP later in the day. If Creatinine improves, will proceed with CTA chest to rule out PE. A venous doppler study will also be done. IV PPI and fluid support has been started. Both GI and vascular surgeon will consult for GI bleed and possible IVC filter placement respectively. Will start patient on Zosyn for presumptive colitis which may or may not be responsible for sepsis noted. Withhold any potential nephrotoxic meds. Critical care time 45 mins cc: MD Dre Rodriguez CRNP
--- NOTE | 2019-12-31 07:22 | Diag Imaging Result Doc PS360 ---
EXAM: CT THORAX/ABD/PELVIS W/O CON 12/31/2019 HISTORY: vomiting blood, sepsis, CHIQUIS TECHNIQUE: This exam was performed using automated exposure control, adjustment of mA or kV according to patient size, and/or use of iterative reconstruction technique. COMMENT: Thorax: The current study is compared with the contrast examination of 10/25/2019. There is an NG tube. There is some questionable mucosal thickening throughout the esophagus. This was not less apparent at the time the previous study. There are no abnormal fluid collections. There is no evidence of significant adenopathy. There is some motion artifact. There is a densely calcified nodule in the left lower lobe. There is minimal dependent atelectasis in the left lower lobe. Otherwise there is no evidence of significant pulmonary parenchymal disease. The regional skeleton is stable in appearance. ABDOMEN: The current study is compared with the previous contrast study of 10/25/2019. There is profound hepatic steatosis. The spleen and adrenal glands are not enlarged. The pancreas is unremarkable. There is some vicarious excretion of contrast in the gallbladder presumably from the previous studies on 10/25/2019. There is no evidence of hydronephrosis or nephrolithiasis. The aorta is not distended. There is no evidence of bowel obstruction. There is no evidence of appendicitis. Pelvis: The urinary bladder is not distended. The prostate gland is stable in appearance compared to 10/21/2019. There is no evidence of free fluid. There is evidence of chronic ischemic necrosis in the left femoral head which was also present on 10/21/2019. Otherwise the regional skeleton is stable in appearance. IMPRESSION: 1. Apparent esophagitis. 2. Severe hepatic steatosis. 3. 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 Electronically signed by Cody Acosta 12/31/2019 7:19 AM
[2019-12-31] MEDS ORDERED: ZOFRAN IV PRN (07:27)
[2019-12-31 07:28] LABS: URINE SOURCE CATH
[2019-12-31 07:31] LABS: BILIRUBIN URINE NEGATIVE (NEGATIVE); BLOOD URINE TRACE (NEGATIVE); COLOR YELLOW; GLUCOSE URINE TRACE mg/dL (NEGATIVE); KETONE URINE 10 mg/dL (NEGATIVE); LEUKOCYTES URINE NEGATIVE (NEGATIVE); NITRITE URINE NEGATIVE (NEGATIVE); PROTEIN URINE 30 mg/dL (NEGATIVE); SP GRAVITY URINE 1.021; TURBIDITY URINE TURBID (CLEAR); UROBILINOGEN URINE NORMAL (NORMAL)
[2019-12-31 07:32] LABS: UR EPITHELIAL CELLS <10 /HPF (<10); URINE BACTERIA NEGATIVE /HPF; URINE RBC <10 /HPF (<10); URINE WBC <10 /HPF (<10)
--- NOTE | 2019-12-31 07:50 | Diag Imaging Result Doc PS360 ---
EXAM: CHEST-PORTABLE 12/31/2019 HISTORY: TUBE PLACEMENT TECHNIQUE: AP portable at 0658 COMMENT: There is an endotracheal tube with its tip just below the thoracic inlet and an NG tube which passes into the stomach. The inspiration is slightly less optimal than on 12/31/2019 at 0326. The left hemidiaphragm in particular is elevated. There may be some atelectasis in the retrocardiac region which was not present previously. IMPRESSION: Left lower lobe atelectasis. Electronically signed by Cody Acosta 12/31/2019 7:47 AM
[2019-12-31] MEDS: FENTANYL IV PRN (07:55)
[2019-12-31] MEDS ORDERED: LEVOPHED 8 MG in D5 1/2 NS 250 ML IV SCH (08:00)
[2019-12-31 09:34] LABS: ALLEN TEST YES; BLOOD TYPE ARTERIAL; HCO3-(ACT) 20.3 mmoll (20.0-26.0); METHB 1.1 % (0.0-1.5); O2(CT) 16.1 mL/dL (15.0-23.0); O2HB 97.7 % (95.0-99.0); PCO2(98.6) 34 mmHg (35-45); PO2(98.6) 153 mmHg (60-100); SAMPLE BLOOD; SAO2 99.8 % (95.0-100.0); SRATE 15 BPM; THB 11.5 g/dL (11.5-17.4); TVOL 50 mL; pH(98.6) 7.35 (7.35-7.45)
[2019-12-31 09:35] LABS: MODALITY VENTILATOR
[2019-12-31] MEDS: PROTONIX IV SCH ×2 (09:41→19:51)
[2019-12-31] MEDS: NS 1,000 ML IV SCH ×4 (09:41→23:28)
[2019-12-31] MEDS: THIAMINE 100 MG in NS 50 ML IV SCH (09:41)
[2019-12-31 10:38] LABS: CALCIUM 7.9 mg/dL (8.8-10.2); CREATININE 1.9 mg/dL (0.7-1.2); POTASSIUM 5.7 mmol/L (3.5-5.1)
[2019-12-31] MEDS: TEFLARO 400 MG in NS 250 ML IV SCH ×2 (11:20→19:52)
[2019-12-31] MEDS ORDERED: KAYEXALATE PO ONE (11:26)
[2019-12-31] MEDS: ZOSYN 2.25 GM in NS 50 ML IV SCH ×3 (12:26→23:28)
--- NOTE | 2019-12-31 13:17 | CONSULTATION ---
DATE OF CONSULTATION: 12/31/2019 REASON FOR CONSULTATION: Upper GI bleed. HISTORY OF PRESENT ILLNESS: Mr. Ac is a 59-year-old male with a past medical history of hypertension, alcohol abuse, gastritis, acute herpes esophagitis, Schatzki's ring, and legally blind. The patient came in with a complaint of nausea, vomiting, vomiting coffee-grounds emesis, and also complained of burning pain in the chest. The patient is currently in the ICU, he is intubated. The patient is intubated, he has an NG tube on low intermittent suction, unable to assess the patient. History was gathered from the past medical records and from the nursing staff. GI had followed the patient in October and we did an EGD on him on 10/27/2019. The patient had esophagitis with Schatzki's ring, erosive gastritis in the gastric antrum, and he had herpes esophagitis. Biopsies were taken and a stomach biopsy showed he had chronic inactive gastritis negative for H. pylori. Esophagus biopsy showed that he had acute herpes esophagitis. The patient was at that time suggested to do a repeat EGD in 3 months. The patient's hemoglobin and hematocrit is 14.3 and 44.1. The patient's plasma lactate has been elevated, it is 6.5. A CT of the chest and the abdomen has shown that the patient has an apparent esophagitis, severe hepatic steatosis, systemic necrosis of the left femoral head. Chest x-ray showed left lower lobe atelectasis. PAST MEDICAL HISTORY: Hypertension, depression, alcoholism, legally blind, Schatzki's ring, gastritis, acute herpes esophagitis. ALLERGIES: No known drug allergies. PAST SURGICAL HISTORY: Bilateral cataract surgery. SOCIAL HISTORY: The patient is single, on disability. Current alcoholic. FAMILY HISTORY: Significant for heart disease and diabetes. HOME MEDICATIONS: Lisinopril 10 mg p.o. daily, Coreg 6.25 mg p.o. twice a day, folic acid 1 mg p.o. daily, Phenergan 25 mg p.o. every 6 hours as needed, Carafate 1 g p.o. every 6 hours, multivitamin 1 tablet daily, Protonix 40 mg p.o. twice a day. REVIEW OF SYSTEMS: Unable to gather much history. The patient is intubated. No family at the bedside. PHYSICAL EXAMINATION: Vital Signs: Temperature 97.5 degrees, pulse 122, respirations 17, blood pressure 99/57, oxygen saturation 100% on mechanical ventilator. The patient's weight is 145 pounds, BMI is 22.0 kg/m2. General: The patient is intubated and unable to assess. HEENT: Pale conjunctivae. Neck: Supple. Lungs: Wheezing heard in the anterior howard. Cardiovascular: The patient is tachycardic. Abdomen: Soft, nontender, nondistended. Active bowel sounds heard in all 4 quadrants. Extremities: No clubbing, no cyanosis, no edema. Pedal pulses 2+ present bilaterally. Neurologic: Unable to assess the patient. LABORATORY DATA: WBCs 25.03, RBC is 4.3, hemoglobin 14.3, hematocrit is 41.4, platelet count 363,000. PT 13.1, INR is 0.98. Sodium 143, potassium 5.7, chloride 106, carbon dioxide 79, BUN 17, creatinine is 1.9, calcium 7.9. The patient has plasma lactate of 5.3. Urinalysis showed trace protein of 31 ketones, trace of blood. Toxicology report has shown negative for plasma serum alcohol. IMAGING: Chest x-ray showed left lower lobe atelectasis. Chest, abdomen and pelvis CT has shown apparent esophagitis, severe hepatic steatosis, ischemic necroses of the left femoral head. IMPRESSION AND PLAN: # GI bleed # Esophagitis # Probable aspiration pneumonia # Septic shock # Hypoxic respiratory failure # Alcoholism # Fatty liver # Hyperkalemia PLAN: Mr. Ac is a 59-year-old male who is currently in the ICU on a mechanical ventilator, intubated. GI has been consulted for his upper GI bleed. The patient's hemoglobin and hematocrit currently is 14.3 and 41.4. The patient is in a septic shock, his white blood cells are 25.03, plasma lactate is 5.3. The patient is hypotensive and tachycardic. He is currently receiving Levophed 8 mg. The patient is receiving IV fluids normal saline at 200 mL. He is on PPIs twice a day. The patient is also receiving IV thiamine. He is on antibiotic Zosyn every 6 hours. We will continue to monitor the patient and follow the plan of care per PCP. This plan was discussed with Dr. Pires. Thank you for your consult. Please call us for any further questions or concerns. Dictated by XUAN Cao for Heriberto Pires MD Physician Attestation I have seen and examined the patient. I have discussed and reviewed the note by Asha GOVEA and agree with findings and plan as documented. MTDD
[2019-12-31] MEDS: DUONEB (A & A) INH SCH ×2 (13:30→21:30)
--- NOTE | 2019-12-31 17:20 | Extremity Venous Study ---
PROCEDURE NAME: Venous U/S Bilateral Legs - 12/31/2019 PLATE CONDITIONER: Samina. REQUESTING PHYSICIAN: Dr. Oswald. INDICATIONS: Possible pulmonary embolus. FINDINGS: Deep and superficial veins bilateral lower extremities visualized along their course. All vessels were compressible with forward flow and no evidence of intraluminal thrombus. SUMMARY: No deep or superficial venous thrombosis seen in bilateral lower extremities. cc: MD Bryan Marinelli MD
--- NOTE | 2019-12-31 17:22 | ECHO REPORT ---
ORDER DATE: 12/31/2019 INDICATION: Hypotension, hypoxemia. M-MODE MEASUREMENTS: Left ventricle end diastole: 4.7. Left ventricle end systole: 2.5. Posterior wall: 1.1. Interventricular septum: 1.1. Left atrium: 2.8. Aortic diameter: 3.1. SUMMARY OF 2-DIMENSIONAL IMAGIN. Left ventricular function is normal. Ejection fraction is 70%. There is no wall motion abnormality. 2. The right ventricle is normal. 3. The aortic valve is normal. Color flow mapping unremarkable. 4. The mitral valve is normal. Color flow mapping unremarkable. 5. Pulse wave Doppler of mitral inflow shows mild reversal of the E/A ratio. 6. Tissue Doppler of septal and lateral mitral annulus averages 11 cm. There is no diastolic dysfunction. 7. The tricuspid valve looks normal with a mild degree of regurgitation. Pulmonary pressure estimated at 31 mmHg. 8. The pulmonic valve is normal. Color flow mapping unremarkable. 9. The right-sided chambers and left atrium are not dilated. Clinical correlation recommended. cc: MD Bryan Harrison MD
--- NOTE | 2019-12-31 18:29 | GENERAL SURGERY CONSULTATION ---
DATE: 12/31/2019 REASON FOR CONSULTATION: Possible IVC filter. CHIEF COMPLAINT: The patient is intubated. HISTORY OF PRESENT ILLNESS: This is a 59-year-old gentleman who had a respiratory decompensation event and was intubated due to acute respiratory failure. He initially presented with an elevated lactic acid and coffee-grounds emesis concerning for a GI bleed. It is unclear if he is on anticoagulation. I do not believe that he is, and it is also unclear whether he has a history of thromboembolism. I was consulted for IVC filter placement evaluation. He has extensive medical history; hypertension, alcohol abuse, gastritis, acute herpes esophagitis, Schatzki ring. He is legally blind. Currently, he is intubated in the ICU, not on vasopressors. MEDICAL HISTORY: As noted in his HPI with addition of depression, legal blindness. SURGICAL HISTORY: He has had cataract surgery. SOCIAL HISTORY: He is on disability. He drinks alcohol currently. It is unclear if he smokes. FAMILY HISTORY: Heart disease, diabetes. REVIEW OF SYSTEMS: Not obtainable. MEDICATIONS: Medication list was reviewed and I do not identify any anticoagulants. Endoscopic history is unclear. OBJECTIVE: On exam, he is afebrile, heart rates in the low 100s, blood pressure this morning has been in the systolics 80s to 90s. Oxygen saturation 100% on mechanical ventilation.HEENT: I do not identify any cervical mass. Cardiovascular: Sinus tachycardia. Pulmonary: He is on the ventilator with the endotracheal tube. Abdomen: Soft, nontender, nondistended with no guarding. Integument: Warm and dry. Peripheral vascular: No lower extremity edema. Well perfused. Neurologically: He is sedated. Lymphatic: I do not feel any inguinal adenopathy. White count 25, hematocrit 44, platelets 363,000. INR 0.98. ABG was reviewed. Creatinine is 1.9. Potassium was initially 5.1 up to 5.7. His bilirubin is normal at 0.82, mild elevation of AST. Ammonia is 36. Lactic acid was 5.3. Urinalysis negative for nitrates, leukocytes. Alcohol level is nondetectable. I reviewed a CT scan of the abdomen and pelvis that shows esophagitis, hepatic steatosis and a femoral head necrosis. He has had an echocardiogram, normal EF. Chest x-ray negative. Extremity venous shows no deep or superficial venous thrombosis. ASSESSMENT AND PLAN: A 59-year-old gentleman who presents with respiratory distress. He has extensive alcohol history and other medical problems. Clinically, it sounds as though he is having a GI bleed, although his hematocrit is stable. History is somewhat limited. However, I do not see that he has a DVT or has a current indication for IVC filter placement. He obviously would be high risk for DVT, but would recommend continuing SCDs. He is clinically too unstable to perform any invasive procedure on him currently, but will monitor going forward. If gastrointestinal bleed is ruled out, starting on prophylactic Lovenox would be reasonable, but it is also reasonable to treat with SCDs and lower extremity compression devices. cc: Mitesh Bronson MD
--- NOTE | 2019-12-31 18:53 | PULMONOLOGY CONSULTATION ---
DATE: 12/31/2019 HISTORY OF PRESENT ILLNESS: Mr. Ac is a 59-year-old white male with extensive alcohol abuse who presented to the emergency room with multiple episodes of vomiting, retrosternal chest pain and emesis. He was hypotensive and tachycardic upon presentation, with coffee- ground emesis in the emergency room. He had progressive respiratory decline requiring intubation and mechanical ventilation. CT scan of the chest, abdomen and pelvis was performed. Evidence of esophagitis with esophageal thickening was noted. CT scan of the abdomen revealed severe hepatic steatosis. PAST MEDICAL HISTORY/PROBLEM LIST: 1. Hypertension. 2. Depressive disorder. 3. Alcohol abuse. 4. Arthritis. SOCIAL HISTORY: The patient is a never smoker. Ongoing alcohol use as per above. FAMILY HISTORY: Noncontributory to current presentation. REVIEW OF SYSTEMS: Could not be obtained. PHYSICAL EXAMINATION: General: Reveals a well-developed, well-nourished, acutely ill male. Vital Signs: Blood pressure 110/73, heart rate 107, respiratory rate 18, oxygen saturation 100%. HEENT: Pupils are equal and reactive. Oropharynx appears clear. Neck: Supple. Chest: Reveals occasional rhonchi bilaterally. Cardiac: S1, S2, increased rate. Abdomen: Soft. Extremities: Without edema. LABORATORY DATA: CT scan as per HPI. White blood count 32530, hemoglobin 14.0, platelet count 363,000. Arterial blood gas after intubation: pH of 7.35, pCO2 of 34, pO2 of 153 with a lactate of 3.7, which was down from 7.0 earlier this morning. IMPRESSION: A 59-year-old with: 1. Acute hypoxemic respiratory failure. 2. Hypotension/shock/severe sepsis. 3. Esophagitis. 4. Alcohol abuse. RECOMMENDATION: 1. Continue full ventilatory support. 2. Initiate antibiotics for presumptive severe esophagitis. No evidence of esophageal tear noted on CT scan. 3. Continue sedation for comfort and observe for alcohol withdrawal. 4. Agree with multivitamin. 5. Long-term, patient survival will depend on alcohol cessation. Time spent in critical care management: 40 minutes cc: Kimani Nguyen MD [facility]Grant
[2019-12-31 19:11] LABS: CALCIUM 7.2 mg/dL (8.8-10.2); CREATININE 1.6 mg/dL (0.7-1.2); POTASSIUM 4.4 mmol/L (3.5-5.1)
[2020-01-01] MEDS: DIPRIVAN 1% 1,000 MG/100 ML BOTTLE IV SCH ×7 (01:17→22:44)
[2020-01-01] MEDS: DUONEB (A & A) INH SCH ×5 (03:05→21:15)
[2020-01-01 03:10] LABS: BASO# 0.01 X1000 (0.0-0.2); BASO% 0.1 % (0.0-0.8); EOS# 0.02 X1000 (0.0-0.7); EOS% 0.2 % (0.0-10.0); HEMATOCRIT 31.7 % (42.0-52.0); HEMOGLOBIN 9.9 g/dL (14.0-18.0); LYMPH# 1.12 X1000 (1.2-3.4); LYMPH% 8.5 % (20.5-51.1); MCHC 31.2 g/dL (33-37); MCV 105.7 FL (81-99); MONO# 0.71 X1000 (0.11-0.59); MONO% 5.4 % (1.7-9.3); MPV 10.4 FL (7.4-10.4); NEUT# 11.24 X1000 (1.4-6.5); NEUT% 85.8 % (42.2-75.2); PLT 180 X1000 (130-400); RDW 13.3 % (11.5-14.5)
[2020-01-01 03:35] LABS: ALB/GLOB RATIO 1.2; ALBUMIN 2.7 g/dL (3.5-5.0); CALCIUM 7.4 mg/dL (8.8-10.2); CREATININE 1.6 mg/dL (0.7-1.2); DIRECT BILIRUBIN 0.2 mg/dL (0.00-0.20); PHOSPHORUS 1.2 mg/dL (2.7-4.5); POTASSIUM 4.2 mmol/L (3.5-5.1); TOTAL BILIRUBIN 0.36 mg/dL (0.20-1.00)
[2020-01-01] MEDS: FENTANYL IV PRN (04:23)
[2020-01-01] MEDS: ZOSYN 2.25 GM in NS 50 ML IV SCH ×4 (04:26→22:43)
[2020-01-01 05:36] LABS: ALLEN TEST YES; BE -5.5 mmoll (-3.0-3.0); BLOOD TYPE ARTERIAL; HCO3-(ACT) 20.7 mmoll (20.0-26.0); METHB 1.1 % (0.0-1.5); O2HB 97.8 % (95.0-99.0); PCO2(98.6) 22 mmHg (35-45); PO2(98.6) 193 mmHg (60-100); SAMPLE BLOOD; SAO2 100.7 % (95.0-100.0); SRATE 15 BPM; THB 8.4 g/dL (11.5-17.4); TVOL 600 mL; pH(98.6) 7.49 (7.35-7.45)
[2020-01-01 05:37] LABS: MODALITY VENTILATOR
[2020-01-01] MEDS: NS 1,000 ML IV SCH ×2 (06:16→12:08)
[2020-01-01] MEDS: PROTONIX IV SCH ×3 (06:17→20:29)
--- NOTE | 2020-01-01 07:30 | Diag Imaging Result Doc PS360 ---
EXAM: CHEST-PORTABLE HISTORY: respiratory failure TECHNIQUE: Single view COMPARISON: 12/31/2019 FINDINGS: No change in the endotracheal tube or nasogastric tube. No cardiomegaly. Small infiltrates in the left lung base with atelectasis. Right lung is clear. No pleural effusions identified. IMPRESSION: Worsening left basilar atelectasis and infiltrates. Electronically signed by Vikas Spencer 01/01/2020 7:28 AM
[2020-01-01] MEDS: TEFLARO 400 MG in NS 250 ML IV SCH ×2 (08:55→20:29)
[2020-01-01] MEDS: THIAMINE 100 MG in NS 50 ML IV SCH (11:45)
[2020-01-01] MEDS: ATIVAN IV PRN ×4 (12:27→22:51)
[2020-01-01] MEDS ORDERED: POTASSIUM PHOSPHATE 40 MMOL in NS 250 ML IV ONE (14:04)
--- NOTE | 2020-01-01 14:12 | PROVIDER PROGRESS NOTE ---
Progress Note S: No acute overnight events. Remains intubated and sedated. No blood in NGT. No melena. O: Last Vital Signs Temp 97.5 F L 01/01/20 12:00 Pulse 85 01/01/20 12:32 Resp 15 01/01/20 12:00 BP 109/71 01/01/20 12:32 Pulse Ox 100 01/01/20 12:32 Height 5 ft 8 in Weight 162 lb 1.6 oz GEN: intubated, sedated HEENT: ET in place NECK: supple CV: RRR, no murmurs PULM: vented BS ABD: soft NT/ND, BS present EXT: no cce NEURO: sedated LABS: 01/01/20 01/01/20 01/01/20 02:32 02:32 05:26 WBC 13.10 H Hgb 9.9 L D Plt Count 180 D pH 7.49 H pCO2 22 L pO2 193 H Sodium 142 Potassium 4.2 Chloride 112 H Carbon Dioxide 15 L Anion Gap 15 BUN 24 H Creatinine 1.6 H Glucose 97 Calcium 7.4 L Phosphorus 1.2 L Total Bilirubin 0.36 AST 37 H ALT 17 Alkaline Phosphatase 53 Total Protein 5.0 L Albumin 2.7 L Plasma Lactate 1.2 Blood culture with GPCs on 12/30, repeat BCx2 pending EXAM: CHEST-PORTABLE HISTORY: respiratory failure TECHNIQUE: Single view COMPARISON: 12/31/2019 FINDINGS: No change in the endotracheal tube or nasogastric tube. No cardiomegaly. Small infiltrates in the left lung base with atelectasis. Right lung is clear. No pleural effusions identified. IMPRESSION: Worsening left basilar atelectasis and infiltrates. EGD 10/27/2019 ESOPHAGUS: Esophagitis was found in the upper third of the esophagus and lower third esophagus. Esophagitis was LA Class D: Mucosal breaks involving more than 75% of esophageal circumference. A biopsy was performed using cold forceps. Sample sent for histology. A Schatzki ring was found at the gastroesophageal junction and was widely open. A biopsy was performed using cold forceps. Sample sent for histology. STOMACH: An erosion was found in the gastric antrum. Mild gastritis (inflammation) was found in the gastric antrum. A biopsy was performed using cold forceps. Sample sent for histology. DUODENUM: The duodenum was normal. A/P: Mr. Ac is a 59 year old man who presented with HTN, blindness, and alcoholism and recent diagnosis of LA grade D esophagitis, herpes esophagitis, Schatzki's ring, gastritis and gastric erosions who presented with nausea, vomiting, and coffee ground emesis. On presentation, patient was found to have hypoxic respiratory failure, hypotension, tachycardia, elevated lactate and leukocytosis consistent with septic shock. He is on broad spectrum antibiotics and PPI IV BID. Overnight, all his counts have decreased; however vital signs and lactate have improved with fluids. No overt GI bleeding. His admission hgb of 14.3 was likely heme-concentrated as his discharged hgb was between 9-11 on discharge in 10/2019. His coffee ground emesis is secondary to known esophagitis. No blood in NGT currently. No melena. 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 Avoid blood thinners. No indication for endoscopic evaluation at this time. # GI bleed # Esophagitis # Probable aspiration pneumonia # Septic shock # Hypoxic respiratory failure # Alcoholism # Acute blood loss anemia # Fatty liver Will follow with you.
[2020-01-01 14:24] LABS: HEMATOCRIT 29.2 % (42.0-52.0); HEMOGLOBIN 9.4 g/dL (14.0-18.0)
--- NOTE | 2020-01-01 14:28 | PROGRESS NOTE ---
DATE: 01/01/2020 INTERVAL HISTORY: The patient admitted initially with complaints of coffee- grounds emesis, nausea, vomiting. Concern was for GI bleed, but he developed hypoxic respiratory distress and eventually required intubation. There was initially concern about PE because of the preliminary read on CT. That was no longer favored on final read and imaging this morning suggestive of aspiration pneumonia, which is more likely the explanation given negative Dopplers and oxygenation improving with antibiotics. One of two of the patient's blood cultures are now positive for gram- positive cocci. Suspect this is a contaminant, but will continue to cover him until that finalizes. No further signs or symptoms of active bleeding, but he has had a significant drop in his hemoglobin and hematocrit with repeat pending. REVIEW OF SYSTEMS: Unable to obtain secondary to patient intubated and sedated. LABS: WBC 13.1, hemoglobin 9.9, hematocrit 31.7, platelets 180,000, pH 7.49, pCO2 22, PO2 193 on the ventilator on 40% oxygen. Sodium 142, potassium 4.2, BUN 24, creatinine 1.6, bicarbonate 15, gap 15, phosphorus 1.2, original lactate 5.3, repeat lactate 1.2. IMAGING: Chest x-ray with left basilar atelectasis and likely pneumonia. VITALS: T-max 98.7 degrees, pulse 85, respirations 109/71, O2 saturation 100% on 30% oxygen via vent. Respiratory rate 15. PHYSICAL EXAMINATION: General: In no acute distress, intubated and sedated. Vitals: As above. HEENT: Normocephalic, atraumatic. No cervical adenopathy. Cardiovascular: Minimally tachycardic but regular, no murmurs noted. Pulmonary: Scattered rhonchi throughout. Abdomen: Soft, nontender, nondistended. Bowel sounds decreased but present. Extremities: Peripheral pulses intact. No clubbing, cyanosis, or edema. Occasional tremulousness noted. Neurologic: Exam limited by sedation, but pupils equal, round, reactive to light. No clear focal deficits. Psychiatric: Patient is sedated. : Ware catheter in place. ASSESSMENT AND PLAN: 1. Acute hypoxemic respiratory failure, likely aspiration pneumonia. Patient on antibiotics with ceftaroline and Zosyn which we will continue for now. Continue ventilatory support as per pulmonology. Oxygenation does appear to be improving with current management. 2. Alcohol abuse and withdrawal. The patient with history of significant alcohol use. Has had known severe esophagitis in the past. Occasionally with the patient tremulous. Nursing staff had some concern for seizure but I observed these episodes. The patient was not in any way rigid and this appeared to be most consistent with chills or possibly some level of alcohol withdrawal. Favor alcohol withdrawal, given that it tends to go along with a mildly elevated heart rate and comes on more when his sedation with propofol is withdrawn. We will add some p.r.n. Ativan to see if that helps. 3. Likely gastrointestinal bleed, coffee-grounds emesis, severe esophagitis. Patient with known severe esophagitis and noncompliance. Had significant coffee-grounds emesis on presentation, but none since intubation. Marked decrease in hemoglobin and hematocrit this morning. Initial hemoglobin 14.3, repeat hemoglobin this morning 9.9. We will trend those and monitor closely. No need for transfusion at this time, but if he continues to that trend, he may need to be transfused this afternoon. Continue PPI. GI on board. 4. Acute kidney injury. Initial creatinine 2.1, now 1.6. Baseline creatinine appears to be likely 1.1. Continue treating underlying medical conditions and monitor. 5. Severe fatty liver disease versus early cirrhosis. We will grief counsellor the patient on alcohol cessation after he is extubated. 6. Left hip ischemic necrosis. May need orthopedic evaluation once his acute illness is improved. 7. Hypophosphatemia. Will replete and monitor. MTDD
[2020-01-01] MEDS: D5 1/2 NS 1,000 ML IV SCH ×2 (15:48→23:34)
[2020-01-01] MEDS: FOLIC ACID 1 MG in NS 50 ML IV SCH (15:49)
--- NOTE | 2020-01-01 17:40 | GENERAL SURGERY PROGRESS NOTE ---
DATE: 01/01/2020 SUBJECTIVE: Clinically stable on ventilator. Hemodynamically stable. No fevers. No tachycardia. No further GI bleeding noted. LABORATORIES: White count 13, hematocrit reviewed. ABG was reviewed. Creatinine is 1.6. ASSESSMENT AND PLAN: This is a 59-year-old gentleman admitted with gastrointestinal bleed. I was initially consulted for an IVC filter. Apparently, there was some initial indication on preliminary read of deep venous thrombosis, but this has subsequently been ruled out. As such, no indication for IVC filter. Please call with any questions. cc: iMtesh Bronson MD MTDD
--- NOTE | 2020-01-01 19:00 | PULMONOLOGY PROGRESS NOTE ---
DATE: 01/01/2020 SUBJECTIVE: The patient is sedated. When his sedation is interrupted, he has some myoclonic twitching. OBJECTIVE: Levophed is being tapered. Blood pressure 109/71, heart rate 85, respiratory rate 18, oxygen saturation 100%. HEENT: Pupils are equal and reactive. Oropharynx appears clear. Neck: Supple. Chest: Reveals rhonchi bilaterally. Cardiac exam: S1-S2. Abdomen: Soft with diminished bowel sounds. Extremities: Reveal trace to 1+ peripheral edema. LABORATORIES: One blood culture is revealing gram-positive cocci. Chest x-ray reveals increasing infiltrates at the left base. Sodium 142, potassium 4.2, chloride 112, bicarbonate 15, BUN 24, creatinine 1.6. Lactate 1.2, phosphorus 1.2. White blood count 13.1 thousand, hemoglobin 9.9, platelet 180,000. Arterial blood gas reveals a pH 7.49, pCO2 of 22, PO2 of 193. IMPRESSION: A 59-year-old with 1. Acute hypoxemic respiratory failure. 2. Severe esophagitis. 3. Hypotension/shock/severe sepsis. 4. Alcohol abuse. 5. Pneumonia. 6. Gram-positive bacteremia. PLAN: 1. Continue full ventilatory support. 2. Change IV fluids. He is developing a hyperchloremic acidosis. 3. Continue current antibiotic regimen pending results of blood culture data. 4. Alcohol cessation education will be provided if he survives this hospital stay. Time spent in critical care management: 35 minutes cc: Kimani Nguyen MD [facility]
[2020-01-02] MEDS: DIPRIVAN 1% 1,000 MG/100 ML BOTTLE IV SCH ×3 (01:57→09:10)
[2020-01-02] MEDS: DUONEB (A & A) INH SCH ×4 (03:15→21:10)
[2020-01-02 04:20] LABS: ALLEN TEST YES; BE -6.4 mmoll (-3.0-3.0); BLOOD TYPE ARTERIAL; HCO3-(ACT) 19.9 mmoll (20.0-26.0); METHB 1.3 % (0.0-1.5); O2(CT) 13.9 mL/dL (15.0-23.0); O2HB 95.8 % (95.0-99.0); PCO2(98.6) 29 mmHg (35-45); PO2(98.6) 86 mmHg (60-100); SAMPLE BLOOD; SAO2 98.6 % (95.0-100.0); SRATE 15 BPM; THB 10.2 g/dL (11.5-17.4); TVOL 600 mL; pH(98.6) 7.39 (7.35-7.45)
[2020-01-02 04:21] LABS: MODALITY VENTILATOR
[2020-01-02] MEDS: ZOSYN 2.25 GM in NS 50 ML IV SCH ×4 (04:35→23:06)
[2020-01-02] MEDS: D5 1/2 NS 1,000 ML IV SCH ×4 (05:30→22:00)
[2020-01-02] MEDS: ATIVAN IV PRN ×3 (05:36→17:11)
[2020-01-02] MEDS: PROTONIX IV SCH ×3 (06:24→19:50)
[2020-01-02 06:57] LABS: BASO# 0.01 X1000 (0.0-0.2); BASO% 0.1 % (0.0-0.8); HEMATOCRIT 30.3 % (42.0-52.0); HEMOGLOBIN 9.7 g/dL (14.0-18.0); IMM GRAN# 0.02 X1000 (0.0-0.04); IMM GRAN% 0.2 % (0.0-0.5); LYMPH# 1.62 X1000 (1.2-3.4); LYMPH% 15.7 % (20.5-51.1); MCH 32.3 PG (27-31); MONO# 0.58 X1000 (0.11-0.59); MONO% 5.6 % (1.7-9.3); NEUT# 7.97 X1000 (1.4-6.5); NEUT% 77.4 % (42.2-75.2); PLT 148 X1000 (130-400); RDW 13.1 % (11.5-14.5)
[2020-01-02 07:36] LABS: AGAP 12; ALB/GLOB RATIO 1.1; ALBUMIN 2.6 g/dL (3.5-5.0); ALKALINE PHOSPHATASE 60 U/L (32-122); BUN 18 mg/dL (8-22); CALCIUM 7.6 mg/dL (8.8-10.2); CHLORIDE 113 mmol/L (98-107); COSMO 290; CREATININE 1.2 mg/dL (0.7-1.2); ESTIMATED GFR > 60; GLUCOSE 186 mg/dL (70-104); GOT 22 U/L (10-34); GPT 13 U/L (10-44); MAGNESIUM 1.6 mg/dL (1.5-2.7); PHOSPHORUS 2.1 mg/dL (2.7-4.5); POTASSIUM 3.5 mmol/L (3.5-5.1); SODIUM 142 mmol/L (136-145); TCO2 17 mmol/L (25-35); TOTAL BILIRUBIN 0.34 mg/dL (0.20-1.00); TOTAL PROTEIN 4.9 g/dL (6.3-8.3)
[2020-01-02] MEDS: TEFLARO 400 MG in NS 250 ML IV SCH ×2 (08:12→19:50)
--- NOTE | 2020-01-02 09:08 | Diag Imaging Result Doc PS360 ---
CHEST-PORTABLE - 01/02/2020 INDICATION: respiratory failure COMPARISON: 01/01/2020 FINDINGS: Support tubes are stable and in good position. There is been slight worsening in the bibasilar opacifications compatible with any combination of infiltrate, atelectasis or effusion. Heart size remains stable. No pneumothorax. IMPRESSION: Slight worsening bibasilar airspace opacifications. Electronically signed by Everton Luis 01/02/2020 9:06 AM
[2020-01-02] MEDS: THIAMINE 100 MG in NS 50 ML IV SCH (09:51)
[2020-01-02] MEDS ORDERED: LASIX IV ONE (10:19)
[2020-01-02] MEDS ORDERED: ATIVAN IV PRN (10:42)
[2020-01-02] MEDS ORDERED: ATIVAN IV ONE (13:54)
--- NOTE | 2020-01-02 14:10 | Diag Imaging Result Doc PS360 ---
CT HEAD W/O CONTRAST - 01/02/2020 INDICATION: jerking movements COMPARISON: None FINDINGS: The ventricles and sulci are normal in size and contour. No intracranial mass or hemorrhage. There is extensive sinusitis. No skull fracture. IMPRESSION: Sinusitis. No intracranial abnormality. This exam was performed using automated exposure control, adjustment of mA or kV according to patient size, and/or use of iterative reconstruction technique Electronically signed by Everton Luis 01/02/2020 2:08 PM
--- NOTE | 2020-01-02 15:02 | PROGRESS NOTE ---
DATE: 01/02/2020 INTERVAL HISTORY: The patient remains intubated. Oxygenation improving. Still no further signs or symptoms of active bleeding. REVIEW OF SYSTEMS: Unable to obtain secondary to patient mental status. LABS: WBC 10.3, hemoglobin 9.7, hematocrit 30.3, platelets 148,000. ABG with pH 7.29, pCO2 29, PO2 86 on the ventilator with 30% oxygen. Sodium 142, potassium 3.5, bicarb 17, BUN 18, creatinine 1.2, glucose 186. VITAL SIGNS: T-max 98.0 degrees, pulse 97, respirations 19, blood pressure 123/89, O2 saturation 100% on vent at 30% oxygen. IMAGING: Chest x-ray with roughly stable to very slightly worse bibasilar opacifications. CT head with possible sinusitis, but otherwise no acute abnormality. PHYSICAL EXAMINATION: General: Intubated and sedated. No acute distress. Vital signs: As above. HEENT: Normocephalic, atraumatic. No cervical adenopathy. Cardiovascular: Minimally tachycardic at the time of my exam, but regular. No murmurs noted. Pulmonary: Still with scattered rhonchi throughout. Abdomen: Soft, nontender, nondistended. Bowel sounds decreased but are present. Extremities: Peripheral pulses intact. No clubbing, cyanosis. No current tremulousness. Neurologic: Exam limited by sedation, but pupils are briskly reactive and roughly equal. No clear focal deficits. Psychiatric: Patient sedated. : Ware remains in place. ASSESSMENT AND PLAN: 1. Acute hypoxemic respiratory failure, likely aspiration pneumonia. Patient on antibiotics with ceftaroline and Zosyn which we will continue. Oxygenation does appear to be improving. May be able to undergo weaning trial and if that goes well, may be able to be extubated. Will see what Pulmonology says. 2. Alcohol abuse and likely withdrawal. Patient with history of significant alcohol use. Has had known severe esophagitis in the past. Continue Ativan for episodes of tremulousness and/or tachycardia that may represent alcohol withdrawal. 3. Likely gastrointestinal bleed, coffee-grounds emesis, severe esophagitis, acute blood-loss anemia. Patient with known severe esophagitis and noncompliance with PPI. Had significant coffee-grounds emesis on presentation, but none since intubation. Initially had sharp drop in hemoglobin and hematocrit but has been roughly stable since then. Continue monitoring blood counts. Continue proton pump inhibitor. Gastroenterology on board. 4. Acute kidney injury. Initial creatinine 2.1, now down to 1.2. May be approaching baseline. Continue monitoring labs. 5. Severe fatty liver versus cirrhosis. We will plan on counseling the patient on alcohol cessation after he is extubated. 6. Left hip ischemic necrosis. No need for acute intervention, but may need orthopedic evaluation once his acute illness is improved. 7. Hypophosphatemia. Improved with repletion but still low. We will replete further and monitor.
[2020-01-02] MEDS: FOLIC ACID 1 MG in NS 50 ML IV SCH (15:34)
--- NOTE | 2020-01-02 16:17 | PULMONOLOGY PROGRESS NOTE ---
DATE: 01/02/2020 SUBJECTIVE: The patient is on mechanical ventilation. The patient's sedation was held. He does have some trembling. He does not follow commands. He does develop tachycardia and tachypnea, which partly abates with Ativan. The patient does not follow commands. OBJECTIVE: Vital Signs: Maximum temperature in the last 24 hours is 97.7 degrees, heart rate 132, respiratory rate 29, oxygen saturation 99% on CPAP. HEENT: Pupils are midpoint and do react to light. They appear equal. Oropharynx appears clear. Neck is supple. Chest reveals rhonchi bilaterally. Cardiac Examination: Increased rate, regular rhythm. Abdomen is soft. Extremities are cool to the touch and reveal 1+ peripheral edema. Laboratories: Chest x-ray reveals slight worsening of bibasilar opacifications. CT scan of the brain after I did my initial evaluation this morning, sinusitis present but otherwise no evidence of acute disease. IMPRESSION: A 59-year-old with: 1. Acute hypoxemic respiratory failure. 2. Severe esophagitis. 3. Severe sinusitis. 4. Hypotension with resolution of vasopressor-requirement requiring shock. 5. Pneumonia. 6. Alcohol abuse. PLAN: 1. Continue ventilatory support pending improvement in mental status. 2. Continue current IV fluids. 3. Continue tube feeds as tolerated. 4. Encourage alcohol cessation. Time spent in critical care management: 35 minutes cc: Kimani Nguyen MD [facility]
--- NOTE | 2020-01-02 23:09 | PROVIDER PROGRESS NOTE ---
Progress Note S: No acute overnight events. Remains NPO. No further bleeding. No melena. O: Last Vital Signs Temp 98.1 F 01/02/20 15:40 Pulse 120 H 01/02/20 18:32 Resp 25 H 01/02/20 18:32 BP 119/98 01/02/20 18:32 Pulse Ox 100 01/02/20 18:32 Height 5 ft 8 in Weight 169 lb 11.2 oz GEN: intubated, sedated HEENT: anicteric, ET and NGT in place NECK: supple CV: tachycardic, regular PULM: vented breath sounds ABD: soft NT/ND EXT: no cce NEURO: sedated LABS: 01/02/20 01/02/20 01/02/20 04:00 04:24 04:24 WBC 10.30 Hgb 9.7 L Plt Count 148 pH 7.39 pCO2 29 L pO2 86 HCO3 19.9 L Sodium 142 Potassium 3.5 D Chloride 113 H Carbon Dioxide 17 L BUN 18 Creatinine 1.2 Glucose 186 H D Calcium 7.6 L Phosphorus 2.1 L Total Protein 4.9 L Albumin 2.6 L CXR CHEST-PORTABLE - 01/02/2020 INDICATION: respiratory failure COMPARISON: 01/01/2020 FINDINGS: Support tubes are stable and in good position. There is been slight worsening in the bibasilar opacifications compatible with any combination of infiltrate, atelectasis or effusion. Heart size remains stable. No pneumothorax. IMPRESSION: Slight worsening bibasilar airspace opacifications. A/P: Mr. Ac is a 59 year old man who presented with HTN, blindness, and alcoholism and recent diagnosis of LA grade D esophagitis, h/o HSV esophagitis (treated), Schatzki's ring, gastritis and gastric erosions who presented with nausea, vomiting, and coffee ground emesis. On presentation, patient was found to have hypoxic respiratory failure, hypotension, tachycardia, elevated lactate and leukocytosis consistent with septic shock. He is on broad spectrum antibiotics and PPI IV BID. His hgb is stable. Recommend starting tube feeds. Avoid blood thinners. No indication for endoscopic evaluation at this time. # GI bleed # Esophagitis # Probable aspiration pneumonia # Septic shock # Hypoxic respiratory failure # Alcoholism # Acute blood loss anemia # Fatty liver Will follow with you.
[2020-01-03] MEDS: ATIVAN IV PRN ×3 (01:14→22:39)
[2020-01-03] MEDS: DUONEB (A & A) INH SCH ×4 (03:10→23:15)
[2020-01-03] MEDS: D5 1/2 NS 1,000 ML IV SCH ×3 (04:43→16:47)
[2020-01-03] MEDS: ZOSYN 2.25 GM in NS 50 ML IV SCH ×4 (04:44→22:38)
[2020-01-03 04:45] LABS: ALLEN TEST YES; BE -0.5 mmoll (-3.0-3.0); BLOOD TYPE ARTERIAL; HCO3-(ACT) 24.5 mmoll (20.0-26.0); METHB 1.5 % (0.0-1.5); O2(CT) 14.9 mL/dL (15.0-23.0); O2HB 96.2 % (95.0-99.0); PCO2(98.6) 31 mmHg (35-45); PO2(98.6) 107 mmHg (60-100); SAMPLE BLOOD; SAO2 99.5 % (95.0-100.0); THB 10.9 g/dL (11.5-17.4); pH(98.6) 7.47 (7.35-7.45)
[2020-01-03 04:46] LABS: MODALITY BI PAP
[2020-01-03 06:10] LABS: BASO# 0.01 X1000 (0.0-0.2); BASO% 0.1 % (0.0-0.8); EOS# 0.13 X1000 (0.0-0.7); EOS% 1.1 % (0.0-10.0); HEMATOCRIT 31.2 % (42.0-52.0); HEMOGLOBIN 10.1 g/dL (14.0-18.0); IMM GRAN# 0.04 X1000 (0.0-0.04); IMM GRAN% 0.3 % (0.0-0.5); LYMPH% 10.3 % (20.5-51.1); MCH 32.9 PG (27-31); MCHC 32.4 g/dL (33-37); MCV 101.6 FL (81-99); MONO# 0.96 X1000 (0.11-0.59); MONO% 8.2 % (1.7-9.3); MPV 10.9 FL (7.4-10.4); NEUT# 9.33 X1000 (1.4-6.5); PLT 150 X1000 (130-400); RBC 3.07 XMIL (4.7-6.1); RDW 13.2 % (11.5-14.5); WBC 11.67 X1000 (4.8-10.8)
[2020-01-03 06:32] LABS: AGAP 10; ALBUMIN 2.6 g/dL (3.5-5.0); ALKALINE PHOSPHATASE 69 U/L (32-122); BUN 9 mg/dL (8-22); CALCIUM 7.6 mg/dL (8.8-10.2); CHLORIDE 111 mmol/L (98-107); COSMO 285; CREATININE 0.9 mg/dL (0.7-1.2); ESTIMATED GFR > 60; GLUCOSE 153 mg/dL (70-104); GOT 30 U/L (10-34); GPT 15 U/L (10-44); PHOSPHORUS 2.1 mg/dL (2.7-4.5); POTASSIUM 3.2 mmol/L (3.5-5.1); SODIUM 142 mmol/L (136-145); TCO2 21 mmol/L (25-35); TOTAL BILIRUBIN 0.76 mg/dL (0.20-1.00); TOTAL PROTEIN 5.2 g/dL (6.3-8.3)
--- NOTE | 2020-01-03 06:56 | Diag Imaging Result Doc PS360 ---
CHEST-PORTABLE - 01/03/2020 INDICATION: respiratory failure COMPARISON: 01/02/2020 FINDINGS: Support tubes are stable and in good position. There has been improvement in the bibasilar airspace opacifications. There are probably small pleural effusions. Heart size is normal. IMPRESSION: Improvement in the bibasilar airspace opacifications. Electronically signed by Everton Luis 01/03/2020 6:53 AM
[2020-01-03] MEDS: PROTONIX IV SCH ×2 (07:57→19:19)
[2020-01-03] MEDS: TEFLARO 400 MG in NS 250 ML IV SCH ×2 (07:57→19:30)
[2020-01-03] MEDS: POTASSIUM CHLORIDE 20 MEQ/SWI 20 MEQ/100 ML IVPB IV SCH ×2 (08:53→10:28)
[2020-01-03] MEDS: THIAMINE 100 MG in NS 50 ML IV SCH (09:23)
--- NOTE | 2020-01-03 10:47 | GASTROENTEROLOGY PROGRESS NOTE ---
DATE: 01/03/2020 SUBJECTIVE: Mr. Ac is a 59-year-old male resting in bed. He is intubated, on a mechanical ventilator. Spoke to Patient's RN at bedside. OBJECTIVE: Vital Signs: Temperature 98.3 degrees, pulse 100, respirations 22, blood pressure 120/99, oxygen saturation 100% on mechanical ventilator. The patient's weight is 167 pounds. BMI is 25.5 kg/m2. General: Patient is intubated and sedated. HEENT: Pale conjunctivae. No icterus. NG tube in place. Neck: Neck is supple. Lungs: Rhonchi heard in the anterior howard. Cardiovascular: Patient is tachycardic. Abdomen: Soft, nontender, nondistended. Active bowel sounds heard in all 4 quadrants. Extremities: No clubbing, no cyanosis, no edema. Pedal pulses 2+ present bilaterally. Neurologic: Unable to assess the patient. He is sedated and on a mechanical ventilator. LABS: WBCs 11.67, RBC is 3.07, hemoglobin is 10.1, hematocrit is 31.2, platelet count is 150. Sodium is 142, potassium is 3.2, chloride is 111, carbon dioxide is 21, anion gap is 10. BUN is 9, creatinine is 0.9, glucose 153, calcium is 7.6 and phosphorus is 2.1. Total bilirubin is 0.76, AST 30, ALT 15, alkaline phosphatase is 69, albumin is 2.6. IMAGING: Chest x-ray today showed improvement in the bibasilar airspace opacifications. IMPRESSION AND PLAN: 1. Gastrointestinal bleed. 2. Esophagitis. 3. Aspiration pneumonia. 4. Septic shock. 5. Fatty liver. 6. Alcoholism. 7. Anemia. PLAN: Mr. Ac is a 59-year-old male with a history of hypertension, blindness and alcoholism. Gastroenterology has been following him for his GI bleed. The patient currently is on PPIs twice a day. He is receiving D5 half-normal saline at 150 mL per hour. The patient's potassium has been low. It is 3.2, he is receiving potassium chloride at 50 mL/hour, a total of 2 bags per PCP. He is also receiving thiamine and folic acid IV. Patient is on tube feedings Vital at 30 mL/hour. His hemoglobin and hematocrit today is 10.1 and 31.2. It has been trending upwards. We currently do not plan to do any procedure on the patient. We will continue to monitor his hemoglobin and hematocrit, and we will continue to follow the plan of care per PCP. This plan was discussed with Dr. Hatch. Please call us for any further questions or concerns. Dictated by XUAN Cao for Jose Hatch MD cc: Jose Hatch MD I have seen and examined the patient myself and I agree with the above plan of care. Please call us with any further questions or concerns. MTDD
[2020-01-03 11:42] LABS: BLOOD TYPE ARTERIAL; PCO2(98.6) 33 mmHg (35-45); PO2(98.6) 116 mmHg (60-100); SAMPLE BLOOD; pH(98.6) 7.46 (7.35-7.45)
[2020-01-03 11:43] LABS: ALLEN TEST YES; BE 0.1 mmoll (-3.0-3.0); METHB 0.5 % (0.0-1.5); O2(CT) 14.6 mL/dL (15.0-23.0); O2HB 97.8 % (95.0-99.0); SAO2 100.2 % (95.0-100.0); THB 10.5 g/dL (11.5-17.4)
[2020-01-03 11:49] LABS: MODALITY VENTILATOR
[2020-01-03] MEDS: FOLIC ACID 1 MG in NS 50 ML IV SCH (14:19)
[2020-01-03] MEDS ORDERED: POTASSIUM PHOSPHATE 30 MMOL in NS 250 ML IV ONE (15:52)
--- NOTE | 2020-01-03 16:17 | PROGRESS NOTE ---
DATE: 01/03/2020 INTERVAL HISTORY: The patient is still with no further signs or symptoms of active bleeding. Remains intubated and sedated. They tried one spontaneous breathing trial yesterday but he became tachycardic, tachypneic, and was not really waking up enough to preserve his airway. Back on CPAP this morning. Heart rate and respiratory rate are better but the patient's mental status is still poor. No other acute events. REVIEW OF SYSTEMS: Unable to obtain secondary to the patient's mental status. LABS: WBC 11.6, hemoglobin 10.1, hematocrit 31.2, platelets 150,000. ABG with pH of 7.46, pCO2 of 33, PO2 of 116 on the ventilator. Sodium 142, potassium 3.2, bicarb 21, BUN 9, creatinine 0.9, glucose 153. IMAGING: Chest x-ray with improvement in bibasilar airspace disease. VITALS: T-max 99.2 degrees, pulse 108, respirations 23, blood pressure 105/83, O2 saturation 99% on the ventilator. PHYSICAL EXAMINATION: General: No acute distress. Intubated and sedated. Vitals: As above. HEENT: Normocephalic, atraumatic. Tubes in place. Tube feeds running. Cardiovascular: Mildly tachycardic but regular. No murmurs noted. Pulmonary: A few scattered rhonchi still but improving from previous. Abdomen: Soft, nontender, nondistended. Bowel sounds decreased but present. Extremities: Peripheral pulses intact. No clubbing or cyanosis. No tremulousness currently. Neurologic: Examination limited by sedation but pupils remain briskly reactive. No clear focal deficits. Psychiatric: The patient will wake up and opens eyes to voice or gentle stimulation but does not follow any commands, focalize, or track with eyes. ASSESSMENT/PLAN: 1. Acute hypoxemic respiratory failure, likely aspiration pneumonia. Patient is on antibiotics with ceftaroline and Zosyn. Appears to be improving from a respiratory standpoint. Oxygen requirement is pretty minimal at this point. Doing fairly well with weaning trial aside from his mental status, which may delay extubation. 2. Alcohol abuse and likely withdrawal. Patient with a history of significant alcohol use. Has known severe esophagitis in the past. Continue Ativan and monitor. 3. Metabolic encephalopathy. Likely a combination of alcohol abuse and withdrawal, and acute illness. We will minimize sedating medications as much as we can but we will likely have to continue giving a certain amount of Ativan for withdrawal. 4. Likely gastrointestinal bleed, coffee-grounds emesis, severe esophagitis, acute blood-loss anemia. Patient with known severe esophagitis and noncompliance with proton pump inhibitor. Had significant coffee-grounds emesis on presentation but no further signs or symptoms of active bleeding since then. Initially had sharp drop in hemoglobin and hematocrit but has been stable since then. Continue to monitor blood counts and continue proton pump inhibitor. Get gastroenterology on board. 5. Acute kidney injury. Initial creatinine 2.1. Down to 0.9 today, which is likely baseline. We will continue aggressive fluids 1 more day but likely start backing off tomorrow. 6. Severe fatty liver versus early cirrhosis. We plan on counseling the patient on alcohol cessation once he is extubated and mental status is improved. 7. Left hip ischemic necrosis. No need for acute intervention but may still need orthopedic evaluation once he is extubated and acute illness is improved. 8. Hypophosphatemia. Low again today. We will further replete and monitor.
[2020-01-03] MEDS: FENTANYL IV PRN ×2 (18:32→22:39)
--- NOTE | 2020-01-03 22:14 | PULMONOLOGY PROGRESS NOTE ---
DATE: 01/03/2020 SUBJECTIVE: The patient is arousable but will not follow commands. OBJECTIVE: Vital Signs: The patient has been afebrile for the last 24 hours, BP 105/83, heart rate 108, respiratory rate 23, oxygen saturation 99%. HEENT: Pupils are equal and reactive. Oropharynx appears clear. Neck: Supple. Chest: Reveals rhonchi bilaterally. Cardiac exam: S1, S2. Abdomen: Soft. Extremities: Without edema. IMAGING: Chest x-ray reveals infiltrate left base with overall decrease in bibasilar infiltrates. LABORATORY DATA: Sodium 142, potassium 3.2, chloride 111, bicarbonate 21, BUN 9, creatinine 0.9, white blood count 11.67, hemoglobin 10.1, platelet count 150,000. Arterial blood gas reveals a pH of 7.46, pCO2 of 33, a pO2 of 116. IMPRESSION: A 59-year-old with: 1. Acute hypoxemic respiratory failure. 2. Pneumonia. 3. Severe esophagitis. 4. Severe sinusitis. 5. Alcohol abuse. DISCUSSION: A 59-year-old with problems outlined above. He is improving, but his rapid shallow breathing index is marginal, and his mental status is less than ideal for extubation. PLAN: 1. Continue ventilatory support until tomorrow morning. 2. Continue tube feeds. 3. Discussed the importance of alcohol cessation. Time spent in critical care management: 35 minutes cc: Kimani Nguyen MD [facility]
[2020-01-04] MEDS: D5 1/2 NS 1,000 ML IV SCH ×3 (02:06→13:34)
[2020-01-04] MEDS: DUONEB (A & A) INH SCH ×4 (03:30→22:04)
[2020-01-04] MEDS: ZOSYN 2.25 GM in NS 50 ML IV SCH ×4 (04:23→23:17)
[2020-01-04 04:39] LABS: ALLEN TEST YES; BE 0.3 mmoll (-3.0-3.0); BLOOD TYPE ARTERIAL; HCO3-(ACT) 25.1 mmoll (20.0-26.0); METHB 1.3 % (0.0-1.5); O2(CT) 17.6 mL/dL (15.0-23.0); O2HB 95.6 % (95.0-99.0); PCO2(98.6) 31 mmHg (35-45); PO2(98.6) 91 mmHg (60-100); SAMPLE BLOOD; SAO2 98.7 % (95.0-100.0); pH(98.6) 7.48 (7.35-7.45)
[2020-01-04 04:40] LABS: MODALITY VENTILATOR
[2020-01-04] MEDS: FENTANYL IV PRN ×4 (05:00→16:30)
[2020-01-04] MEDS: ATIVAN IV PRN ×5 (05:00→21:49)
[2020-01-04 06:25] LABS: BASO# 0.01 X1000 (0.0-0.2); BASO% 0.1 % (0.0-0.8); EOS# 0.15 X1000 (0.0-0.7); EOS% 1.5 % (0.0-10.0); HEMATOCRIT 28.8 % (42.0-52.0); HEMOGLOBIN 9.2 g/dL (14.0-18.0); IMM GRAN# 0.04 X1000 (0.0-0.04); IMM GRAN% 0.4 % (0.0-0.5); LYMPH# 0.97 X1000 (1.2-3.4); LYMPH% 9.5 % (20.5-51.1); MCH 32.6 PG (27-31); MCHC 31.9 g/dL (33-37); MCV 102.1 FL (81-99); MONO# 1.14 X1000 (0.11-0.59); MONO% 11.2 % (1.7-9.3); MPV 11.1 FL (7.4-10.4); NEUT# 7.88 X1000 (1.4-6.5); NEUT% 77.3 % (42.2-75.2); PLT 139 X1000 (130-400); RBC 2.82 XMIL (4.7-6.1); RDW 12.9 % (11.5-14.5); WBC 10.19 X1000 (4.8-10.8)
--- NOTE | 2020-01-04 06:36 | Diag Imaging Result Doc PS360 ---
CHEST-PORTABLE - 01/04/2020 INDICATION: respiratory failure COMPARISON: 01/03/2020 FINDINGS: Support tubes are stable and in good position. Slight worsening in the interstitial pulmonary edema. There has been worsening in the bibasilar opacifications suggesting small pleural effusions. Stable cardiomegaly and pulmonary vascular congestion. IMPRESSION: Very slight worsening from prior. Electronically signed by Everton Luis 01/04/2020 6:34 AM
[2020-01-04 06:41] LABS: AGAP 10; ALB/GLOB RATIO 0.9; ALBUMIN 2.4 g/dL (3.5-5.0); ALKALINE PHOSPHATASE 66 U/L (32-122); BUN 8 mg/dL (8-22); CALCIUM 8.2 mg/dL (8.8-10.2); CHLORIDE 109 mmol/L (98-107); COSMO 280; CREATININE 0.7 mg/dL (0.7-1.2); ESTIMATED GFR > 60; GLUCOSE 131 mg/dL (70-104); GOT 44 U/L (10-34); GPT 25 U/L (10-44); PHOSPHORUS 2.3 mg/dL (2.7-4.5); POTASSIUM 3.4 mmol/L (3.5-5.1); SODIUM 140 mmol/L (136-145); TCO2 21 mmol/L (25-35); TOTAL BILIRUBIN 0.77 mg/dL (0.20-1.00)
[2020-01-04] MEDS: PROTONIX IV SCH ×2 (07:28→19:38)
[2020-01-04] MEDS: TEFLARO 400 MG in NS 250 ML IV SCH (07:29)
[2020-01-04] MEDS: DIPRIVAN 1% 1,000 MG/100 ML BOTTLE IV SCH ×3 (07:55→19:06)
[2020-01-04] MEDS: THIAMINE 100 MG in NS 50 ML IV SCH (08:31)
--- NOTE | 2020-01-04 10:58 | GASTROENTEROLOGY PROGRESS NOTE ---
DATE: 01/04/2020 SUBJECTIVE: Mr. Ac is a 59-year-old male. He is on a mechanical ventilator, sedated, unable to assess patient. OBJECTIVE: Vital Signs: Temperature 99.6 degrees, pulse 108, respirations 30, blood pressure 108/78, oxygen saturation 97% on mechanical ventilator. The patient's weight is 174 pounds. BMI is 26.6 kg/meter squared. General: The patient is sedated on a mechanical ventilator. HEENT: Pale conjunctivae. No icterus. NG tube in place. Neck: Supple. Cardiovascular: Patient is tachycardic and tachypneic. Lungs: Rhonchi is heard in the anterior howard. Abdomen: Soft, nontender, nondistended. Active bowel sounds heard in all 4 quadrants. Extremities: No clubbing, no cyanosis, no edema. Pedal pulses 2+ present bilaterally. Neurologic: The patient is sedated on a mechanical ventilator. LABS: WBC 10.19, RBC 2.82, hemoglobin is 9.2, hematocrit is 28.8, platelet count is 139,000. Sodium is 140, potassium is 3.4, chloride is 109, carbon dioxide is 21, anion gap is 10, BUN is 8, creatinine is 0.7, glucose is 131, calcium is 8.2. Phosphorus is 2.3. Total bilirubin is 0.77, AST is 44, ALT is 25, alkaline phosphatase is 66, albumin is 2.4. IMAGING: Chest x-ray today showed slight worsening from the prior. IMPRESSION AND PLAN: 1. Gastrointestinal bleed. 2. Esophagitis. 3. Aspiration pneumonia. 4. Septic shock - resolved 5. Hypoxic respiratory failure. 6. Alcoholism. 7. Acute blood loss anemia. 8. Fatty liver. PLAN: Mr. Ac is a 59-year-old male with history of alcoholism. GI is following him for his GI bleed. As per nursing staff, patient has not had any further bleeding episodes and they have not noticed anything in the NG tube. The patient's hemoglobin and hematocrit today are 9.2 and 28.2. It has slightly trended downward. The patient is on PPIs twice a day. He is on IV fluids, D5 half-normal saline at 150 mL/hour. The patient is receiving IV thiamine and folic acid. He is also on antibiotic, Zosyn. We do not plan to do any procedures as of now. We will continue to monitor the patient's hemoglobin and hematocrit and follow the plan of care per PCP. This plan was discussed with Dr. Pires. Please call us for any further questions or concerns. Dictated by XUAN Cao for Heriberto Pires MD Physician Attestation I have seen and examined the patient. I have discussed and reviewed the note by Asha GOVEA and agree with findings and plan as documented. Recommend continuous trickle feeds. Advance as tolerated. Continue PPI. Hgb stable. MTDD
[2020-01-04] MEDS ORDERED: KLOR-CON PO ONE (13:45)
[2020-01-04] MEDS ORDERED: SODIUM PHOSPHATE 40 MEQ in NS 250 ML IV ONE ×2 (13:50→13:53)
--- NOTE | 2020-01-04 14:12 | PROGRESS NOTE ---
DATE: 01/04/2020 SUBJECTIVE: Patient has no major complaints. OBJECTIVE: Blood pressure is 90/68, heart rate of 90, respiratory rate of 23, temperature was 98.3 degrees.Cardiovascular: Regular rate and rhythm. Pulmonary: Bilateral breath sounds clear to auscultation. GI: Soft, nontender, nondistended. Bowel sounds are positive. LABORATORY DATA: White count is 10, hemoglobin and hematocrit 9 and 28, platelets 139,000. PH 7.48, pCO2 31, PaO2 91 on the ventilator. I think he is undergoing a breathing trial because he is on CPAP. Potassium 3.4, creatinine 0.7, phos of 2.3. AST is mildly elevated. PROBLEM LIST: 1. Acute hypoxic respiratory failure due to aspiration type pneumonia. He is on Zosyn and Teflaro. Pulmonary is following, weaning at this point. May consider extubation once his mental status improves. 2. Alcohol abuse withdrawal. He is on Ativan. We will continue to monitor. Mental status is still not there. 3. Gastrointestinal bleed esophagitis. He is on a proton pump inhibitor. Hemoglobin and hematocrit is stable. GI is following. I do not think they are planning to do anything else. Hemoglobin and hematocrit has dropped since yesterday but is stable since the . He has not had a transfusion that I can tell, so we will continue to monitor. 4. Acute kidney injury that is also resolved. 5. 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 Continue to follow. 6. Hypophosphatemia. We will continue to supplement. DISPOSITION: Pending clinical status but anticipate discharge and extubation soon. He has been placed on Clinimix as well. Continue to monitor. cc: Juan A Motta MD
[2020-01-04] MEDS: CLINIMIX E 4.25%-5% SOLUTION 1,000 ML IV SCH (14:45)
[2020-01-04] MEDS: FOLIC ACID 1 MG in NS 50 ML IV SCH (15:04)
[2020-01-04] MEDS: ZYVOX 600 MG/D5W 600 MG/300 ML IVPB IV SCH (15:08)
--- NOTE | 2020-01-04 16:34 | PULMONOLOGY PROGRESS NOTE ---
DATE: 01/04/2020 SUBJECTIVE: The patient is less arousable than yesterday. He became more agitated with tachycardia, hypertension, and tachypnea. He has received increased sedation with decreasing heart rate, respiratory rate, and blood pressure. OBJECTIVE: Vital Signs: The patient has been afebrile for the last 24 hours. Blood pressure 99/74, heart rate 88, respiratory rate 23, oxygen saturation 95%. HEENT: Pupils are equal and reactive. Oropharynx appears clear. neck: Neck is supple. pulmonary: Chest reveals rhonchi bilaterally. Cardiac: S1, S2. abdomen: Abdomen is soft. Extremities: Extremities are without edema. LABORATORIES AND DATA: Chest x-ray reveals bibasilar infiltrates with retrocardiac consolidation and endotracheal tube in good position. Microbiology reveals no new data. IMPRESSION: A 59-year-old with: 1. Acute hypoxemic respiratory failure. 2. Bilateral pneumonia. 3. Severe esophagitis. 4. Sinusitis. 5. Alcohol abuse. DISCUSSION: A 59-year-old with problems outlined above. He failed weaning trial today. PLAN: 1. Continue current ventilator support. 2. Re-attempt tube feeds. We will follow residuals. 3. Encourage smoking cessation. 4. Repeat weaning trial tomorrow. Time spent in control care management: 35 minutes cc: Kimani Nguyen MD [facility]
[2020-01-05] MEDS: ZYVOX 600 MG/D5W 600 MG/300 ML IVPB IV SCH ×2 (01:12→13:15)
[2020-01-05] MEDS: DIPRIVAN 1% 1,000 MG/100 ML BOTTLE IV SCH ×4 (02:55→21:02)
[2020-01-05] MEDS: CLINIMIX E 4.25%-5% SOLUTION 1,000 ML IV SCH ×2 (02:55→15:25)
[2020-01-05] MEDS: ATIVAN IV PRN ×4 (02:56→21:03)
[2020-01-05] MEDS: DUONEB (A & A) INH SCH ×4 (03:24→22:13)
[2020-01-05 04:43] LABS: ALLEN TEST YES; BE 1.1 mmoll (-3.0-3.0); BLOOD TYPE ARTERIAL; HCO3-(ACT) 25.6 mmoll (20.0-26.0); METHB 0.6 % (0.0-1.5); O2(CT) 10.1 mL/dL (15.0-23.0); PCO2(98.6) 36 mmHg (35-45); SAMPLE BLOOD; SAO2 87.3 % (95.0-100.0); SRATE 15 BPM; THB 8.5 g/dL (11.5-17.4); TVOL 500 mL; pH(98.6) 7.45 (7.35-7.45)
[2020-01-05 04:47] LABS: MODALITY VENTILATOR; PO2(98.6) 45 mmHg (60-100)
[2020-01-05] MEDS: ZOSYN 2.25 GM in NS 50 ML IV SCH ×4 (05:47→23:44)
[2020-01-05] MEDS: FENTANYL IV PRN ×2 (05:59→21:38)
[2020-01-05 06:25] LABS: HEMATOCRIT 25.8 % (42.0-52.0); HEMOGLOBIN 8.3 g/dL (14.0-18.0); MCH 33.3 PG (27-31); MCHC 32.2 g/dL (33-37); MCV 103.6 FL (81-99); MPV 11.1 FL (7.4-10.4); RBC 2.49 XMIL (4.7-6.1); RDW 13.2 % (11.5-14.5); WBC 8.68 X1000 (4.8-10.8)
[2020-01-05 06:49] LABS: AGAP 10; ALB/GLOB RATIO 0.8; ALBUMIN 2.1 g/dL (3.5-5.0); ALKALINE PHOSPHATASE 63 U/L (32-122); BUN 11 mg/dL (8-22); CALCIUM 8.3 mg/dL (8.8-10.2); CHLORIDE 108 mmol/L (98-107); COSMO 283; CREATININE 0.8 mg/dL (0.7-1.2); ESTIMATED GFR > 60; GLUCOSE 115 mg/dL (70-104); GOT 24 U/L (10-34); GPT 21 U/L (10-44); MAGNESIUM 1.4 mg/dL (1.5-2.7); PHOSPHORUS 3.5 mg/dL (2.7-4.5); POTASSIUM 3.5 mmol/L (3.5-5.1); SODIUM 142 mmol/L (136-145); TCO2 24 mmol/L (25-35); TOTAL BILIRUBIN 0.43 mg/dL (0.20-1.00); TOTAL PROTEIN 4.7 g/dL (6.3-8.3)
[2020-01-05] MEDS: PROTONIX IV SCH ×2 (08:08→19:38)
[2020-01-05] MEDS: THIAMINE 100 MG in NS 50 ML IV SCH (08:09)
--- NOTE | 2020-01-05 08:37 | Diag Imaging Result Doc PS360 ---
EXAM: CHEST-PORTABLE 01/05/2020 HISTORY: respiratory failure TECHNIQUE: AP portable at 0527 COMMENT: There is an endotracheal tube with its tip well above the deangelo. There are bilateral pleural effusions. There is interstitial pulmonary edema. This appears slightly worse than on 01/04/2020. IMPRESSION: Pulmonary edema and pleural effusions. Electronically signed by Cody Acosta 01/05/2020 8:35 AM
[2020-01-05] MEDS ORDERED: LASIX IV ONE (09:45)
[2020-01-05 10:38] LABS: HEMATOCRIT 29.4 % (42.0-52.0); HEMOGLOBIN 9.3 g/dL (14.0-18.0)
--- NOTE | 2020-01-05 11:05 | GASTROENTEROLOGY PROGRESS NOTE ---
DATE: 01/05/2020 SUBJECTIVE: Mr. Ac is a 59-year-old male resting in bed on a mechanical ventilator, sedated, unable to assess. OBJECTIVE: Vital Signs: Temperature 97.5 degrees, pulse 70, respirations 18, blood pressure 127/86, oxygen saturation 98% on a mechanical ventilator. The patient's weight is 176 pounds, BMI is 26.8 kg/m2. General: Patient is sedated and on a mechanical ventilator. HEENT: Pale conjunctivae. No icterus. PERRL. NG tube in place. Neck: Supple. Lungs: Mild rhonchi is heard in the anterior howard. Cardiovascular: Regular rate and rhythm. Abdomen: Soft, nontender, nondistended. Active bowel sounds heard in all 4 quadrants. Extremities: No clubbing, no cyanosis, no edema. Pedal pulses present bilaterally. Neurologic: The patient is sedated and on a mechanical ventilator. LABORATORY DATA: WBCs are 8.68, RBCs 2.49, hemoglobin is 8.3, hematocrit is 25.8, platelet count is 111,000. Sodium 142, potassium 3.5, chloride 105, carbon dioxide 24, anion gap is 10, BUN is 11, creatinine is 0.8, glucose is 115, calcium is 8.3, phosphorus is 3.5, magnesium is 1.4, total bilirubin is 0.43, AST 24, ALT 21, alkaline phosphatase 63, albumin is 2.1. Chest x-ray today showed pulmonary edema and pleural effusion. IMPRESSION AND PLAN: 1. Gastrointestinal bleed 2. Esophagitis. 3. Aspiration pneumonia. 4. Septic shock. 5. Hypoxic respiratory failure. 6. Alcoholism. 7. Acute blood loss anemia. 8. Fatty liver. PLAN: Mr. Ac is a 59-year-old male with a history of alcoholism. GI has been following him for his GI bleed. The patient has no longer had any episodes of bleeding but his hemoglobin and hematocrit is trending downwards, today it is 8.3 and 25.8. The patient is currently having NG tube and he is receiving feeding Vital at 10 mL/hour. He is on PPIs twice a day. He is receiving antibiotic Zosyn and Zyvox and Clinimix 75 mL/hour. The patient is on IV folic and thiamine. We will continue to monitor the patient's hemoglobin and hematocrit and follow the plan of care per PCP. This plan was discussed with Dr. Pires. Please call us for any further questions or concerns. Dictated by XUAN Cao for Heriberto Pires MD Physician Attestation I have seen and examined the patient. I have discussed and reviewed the note by Asha GOVEA and agree with findings and plan as documented. [facility]
[2020-01-05] MEDS: FOLIC ACID 1 MG in NS 50 ML IV SCH (14:26)
--- NOTE | 2020-01-05 15:28 | PROGRESS NOTE ---
DATE: 01/05/2020 SUBJECTIVE: Patient has no complaints. OBJECTIVE: Vital Signs: Blood pressure is 112/74, heart rate of 95, respiratory rate 23, temperature 98.8 degrees. Cardiovascular: Regular rate and rhythm. Pulmonary: Bilateral breath sounds clear to auscultation. Gastrointestinal: Soft, nontender, nondistended. Bowel sounds are positive. LABORATORY DATA: White count is 8, hemoglobin 9, hematocrit 29, platelets 111,000. PH 7.45, pCO2 36, PaO2 45. Basic was normal. Phosphorus was 1.4. PROBLEM LIST: 1. Acute hypoxic respiratory failure due to pneumonia. He is on Teflaro and Zosyn. I simply do not believe in double covering with two different beta lactams, that does not make clinical sense to me. I understand Teflaro covers for Methicillin-resistant Staphylococcus aureus, but I will use a additional agent instead of two different beta lactams or cephalosporin type drugs. 2. Alcohol abuse with withdrawal. He is on Ativan as needed. Mental status is still somewhat hazy. 3. Acute gastrointestinal bleed with esophagitis. Hemoglobin and hematocrit is stable currently. We will continue to follow. 4. Hypophosphatemia. We will continue to supplement and follow. 5. Alcoholic steatohepatitis. Continue to monitor. 6. Continue nutritional supplementation. DISPOSITION: Pending his clinical status. cc: Juan A Motta MD
--- NOTE | 2020-01-05 19:20 | PULMONOLOGY PROGRESS NOTE ---
DATE: 01/05/2020 SUBJECTIVE: The patient is arousable and agitated, but does not follow commands. He remains on mechanical ventilation. OBJECTIVE: Vital Signs: The patient has been afebrile for the last 24 hours. Blood pressure 127/89, heart rate 103, respiratory rate 23, oxygen saturation 95%. HEENT: Pupils are equal and reactive. Oropharynx appears clear. neck: Neck is supple. pulmonary: Chest reveals diminished breath sounds in both lung bases. Cardiac: S1-S2. abdomen: Abdomen is soft with positive bowel sounds. Extremities: Extremities reveal 1+ peripheral edema. LABORATORIES: Chest x-ray reveals interstitial edema with increasing pleural effusions. Arterial blood gas reveals a pH of 7.45, pCO2 of 36, pO2 of 45 on 40% FiO2. FiO2 was increased. Sodium 142, potassium 3.5, chloride 108, bicarbonate 24, BUN 11, creatinine 0.8, albumin 2.1. IMPRESSION: A 59-year-old with: 1. Acute hypoxemic respiratory failure. 2. Bilateral pneumonia. 3. Bilateral effusions. 4. Severe esophagitis. 5. Sinusitis. 6. Delirium. 7. Alcohol abuse. DISCUSSION: A 59-year-old with problems outlined above. The patient failed weaning trial yesterday, but due to increasing fluid retention he was too hypoxemic to wean today. He has received a dose of Lasix and is having excellent urine output. PLAN: 1. Continue ventilatory support today. 2. Tube feeds as tolerated. 3. Diuresis as tolerated. 4. Repeat weaning trial. 5. Smoking cessation education if he survives this hospital stay. Time spent in critical care management: 35 minutes cc: MD KEM Taylor
[2020-01-05] MEDS: LASIX IV SCH (19:38)
[2020-01-06] MEDS: ATIVAN IV PRN ×5 (00:45→23:28)
[2020-01-06] MEDS: ZYVOX 600 MG/D5W 600 MG/300 ML IVPB IV SCH ×2 (02:16→13:34)
[2020-01-06] MEDS: LASIX IV SCH ×2 (02:16→19:43)
[2020-01-06] MEDS: DIPRIVAN 1% 1,000 MG/100 ML BOTTLE IV SCH (02:22)
[2020-01-06] MEDS: DUONEB (A & A) INH SCH ×4 (03:35→22:38)
[2020-01-06 04:35] LABS: ALLEN TEST YES; BE 12.5 mmoll (-3.0-3.0); BLOOD TYPE ARTERIAL; HCO3-(ACT) 34.6 mmoll (20.0-26.0); METHB 0.8 % (0.0-1.5); O2HB 93.5 % (95.0-99.0); PCO2(98.6) 40 mmHg (35-45); PO2(98.6) 63 mmHg (60-100); SAMPLE BLOOD; SAO2 96.1 % (95.0-100.0); SRATE 15 BPM; THB 10.6 g/dL (11.5-17.4); TVOL 500 mL
[2020-01-06 04:36] LABS: MODALITY VENTILATOR
[2020-01-06 04:37] LABS: pH(98.6) 7.56 (7.35-7.45)
[2020-01-06] MEDS: ZOSYN 2.25 GM in NS 50 ML IV SCH ×4 (05:04→22:57)
[2020-01-06] MEDS: CLINIMIX E 4.25%-5% SOLUTION 1,000 ML IV SCH ×2 (05:04→19:43)
[2020-01-06 05:57] LABS: HEMATOCRIT 31.6 % (42.0-52.0); HEMOGLOBIN 10.7 g/dL (14.0-18.0); MCHC 33.9 g/dL (33-37); MCV 100.3 FL (81-99); RBC 3.15 XMIL (4.7-6.1); RDW 13.3 % (11.5-14.5); WBC 9.9 X1000 (4.8-10.8)
[2020-01-06 06:38] LABS: AGAP 13; ALB/GLOB RATIO 0.9; ALKALINE PHOSPHATASE 83 U/L (32-122); BUN 16 mg/dL (8-22); CALCIUM 9.2 mg/dL (8.8-10.2); CHLORIDE 95 mmol/L (98-107); COSMO 279; ESTIMATED GFR > 60; GLUCOSE 137 mg/dL (70-104); GOT 17 U/L (10-34); GPT 18 U/L (10-44); POTASSIUM 3.1 mmol/L (3.5-5.1); SODIUM 138 mmol/L (136-145); TCO2 30 mmol/L (25-35); TOTAL PROTEIN 6.3 g/dL (6.3-8.3)
--- NOTE | 2020-01-06 07:14 | Diag Imaging Result Doc PS360 ---
EXAM: CHEST-PORTABLE 01/06/2020 HISTORY: respiratory failure TECHNIQUE: AP portable at 0523 COMMENT: There is an endotracheal tube with its tip thoracic inlet and an NG tube passing below the diaphragm. There is obscuration of both hemidiaphragms which is worse than on 01/05/2020. IMPRESSION: Pulmonary edema and bilateral pleural effusions. Electronically signed by Cody Acosta 01/06/2020 7:12 AM
[2020-01-06] MEDS: PROTONIX IV SCH ×2 (07:35→20:26)
[2020-01-06] MEDS: THIAMINE 100 MG in NS 50 ML IV SCH (08:37)
--- NOTE | 2020-01-06 10:21 | GASTROENTEROLOGY PROGRESS NOTE ---
DATE: 01/06/2020 SUBJECTIVE: Mr. Ac is a 59-year-old male. He is resting in bed. The patient is on a mechanical ventilator and sedated. The patient opens his eyes when his name is called, but unable to follow any commands. Patient has been having positive bowel movements. OBJECTIVE: Vital Signs: Temperature 98.5 degrees, pulse 100, respirations 15, blood pressure 92/70, oxygen saturation 96% on a mechanical ventilator. The patient's weight is 175 pounds, BMI is 26.6 kg/m2. General: He is on a ventilator, sedated. Unable to assess. HEENT: Pale conjunctivae. No icterus. NG tube in place. Neck: Supple. Lungs: Diminished breath sounds in the anterior howard. Cardiovascular: The patient is tachycardic. Abdomen: Soft, nontender, nondistended. Active bowel sounds heard in all 4 quadrants. Extremities: No clubbing, no cyanosis. Generalized edema. Neurologic: On a mechanical ventilator and sedated. LABORATORY: WBCs are 9.90, RBC is 3.15, hemoglobin is 10.7, hematocrit is 31.6, platelet count is 199,000. Sodium 138, potassium 3.1, chloride is 95, carbon dioxide is 30, anion gap is 13, BUN is 16, creatinine is 1.0, glucose is 137, calcium is 9.2, total bilirubin is 0.50, AST 17, ALT is 18, alkaline phosphatase is 83, albumin is 3.0. IMAGING: Chest x-ray today has shown pulmonary edema and bilateral pleural effusions. IMPRESSION AND PLAN: 1. Gastrointestinal bleed, resolved. 2. Esophagitis. 3. Aspiration pneumonia. 4. Septic shock. 5. Hypoxic respiratory failure. 6. Alcoholism. 7. Acute blood loss anemia. 8. Fatty liver. PLAN: Mr. Ac is a 59-year-old male with a history of alcoholism. Gastroenterology has been following him for his GI bleed. Currently, the patient's hemoglobin and hematocrit is 10.7 and 31.6, it has been trending upwards. He is hemodynamically stable. They tired to wean him yesterday but they failed to wean him off due to the increase in fluid retention. He is currently receiving PPIs twice a day. He is receiving IV thiamine and folic acid. The patient is on antibiotic Zosyn and Zyvox. He is also on Clinimix 75 mL. The patient is receiving NG tube feeding Vital at 10 mL/hour. As per nursing staff, he has been tolerating his feedings well but they are on hold for possible extubation. We will continue to monitor the patient and follow the plan of care per PCP and the extension service advisor. This plan was discussed with Dr. Hatch. Please call us for any further questions or concerns. Dictated by XUAN Cao for Jose Hatch MD cc: Jose Hatch MD I have seen and examined the patient myself and I agree with the above plan of care. Please call us with any questions or concerns. KEM
[2020-01-06 10:47] LABS: ALLEN TEST YES; BE 12.5 mmoll (-3.0-3.0); BLOOD TYPE ARTERIAL; HCO3-(ACT) 34.6 mmoll (20.0-26.0); METHB 1.1 % (0.0-1.5); O2(CT) 14.7 mL/dL (15.0-23.0); O2HB 92.6 % (95.0-99.0); PCO2(98.6) 40 mmHg (35-45); PO2(98.6) 61 mmHg (60-100); SAMPLE BLOOD; SAO2 95.2 % (95.0-100.0); THB 11.3 g/dL (11.5-17.4)
[2020-01-06 10:49] LABS: MODALITY VENTILATOR
[2020-01-06 10:51] LABS: pH(98.6) 7.56 (7.35-7.45)
[2020-01-06] MEDS ORDERED: PROTONIX IV SCH (11:45)
--- NOTE | 2020-01-06 13:30 | PROGRESS NOTE ---
DATE: 01/06/2020 SUBJECTIVE: Patient has no major complaints. OBJECTIVE: Vital Signs: Blood pressure is 137/91, heart rate of 123, respiratory rate of 22, temperature is afebrile, 98-95. Cardiovascular: Regular rate and rhythm. Pulmonary: Bilateral breath sounds clear to auscultation. Gastrointestinal: Soft, nontender, nondistended. LABORATORY: White count is 9.9, hemoglobin and hematocrit 10 and 31, platelets of 199,000. PH 7.56, pCO2 40, PaO2 61, potassium is 3.1. PROBLEM LIST: 1. Acute hypoxic respiratory failure due to pneumonia. He is currently on Zyvox and Zosyn. Zosyn will be day 6. The Zyvox we started a couple days ago so day 2, so we will continue to follow. I believe he is off pressors, so we will continue to follow. 2. Acute on chronic respiratory failure. He has been extubated today, seems to be doing okay. 3. Alcohol withdrawal syndrome. We will continue to follow closely. His mental status is almost catatonic, he's awake, alert but uncooperative, possibly due to withdrawal or sedation. very out of it. We may need to consider repeating his head CT. 4. Gastrointestinal bleed, hemoglobin and hematocrit is stable. We will continue to monitor. DISPOSITION: Pending clinical status. We will check an ammonia level tomorrow and we will continue to follow closely. cc: MD KEM Castañeda
[2020-01-06] MEDS: POTASSIUM CHLORIDE 20 MEQ/SWI 20 MEQ/100 ML IVPB IV SCH ×2 (13:34→15:37)
[2020-01-06] MEDS: TYLENOL PO PRN (14:31)
[2020-01-06] MEDS: FOLIC ACID 1 MG in NS 50 ML IV SCH (15:43)
--- NOTE | 2020-01-06 19:17 | PULMONOLOGY PROGRESS NOTE ---
DATE: 01/06/2020 SUBJECTIVE: The patient has been followed for a spontaneous breathing trial. He does respond to practitioner. He does not have increased work of breathing. OBJECTIVE: Vital Signs: Maximum temperature in the last 24 hours is 99.5, blood pressure 137/91, respiratory rate 16, oxygen saturation 95%. HEENT: Pupils are equal and reactive. Oropharynx appears clear, but dry. Neck: Supple. Chest: Reveals rhonchi bilaterally. Cardiac Exam: S1-S2. Abdomen: Soft. Extremities: Without edema. IMPRESSION: A 59-year-old with 1. Acute hypoxemic respiratory failure. 2. Bilateral pneumonia. 3. Pleural effusions. 4. Severe esophagitis. 5. Sinusitis. 6. Delirium. 7. Alcohol abuse. DISCUSSION: A 59-year-old with problems outlined above. The patient continues to have some effusions, but he has successfully passed a spontaneous breathing trial. PLAN: 1. Extubation this morning. 2. Leave orogastric in anticipation of the need to restart tube feeds. 3. Diuresis as tolerated. 4. Smoking cessation recommended. Critical Care Time: 35 minutes cc: Kimani Nguyen MD [facility]
[2020-01-06] MEDS: COREG PO SCH (20:26)
[2020-01-07] MEDS: LASIX IV SCH (02:53)
[2020-01-07] MEDS: ZYVOX 600 MG/D5W 600 MG/300 ML IVPB IV SCH ×3 (02:53→22:43)
[2020-01-07] MEDS: DUONEB (A & A) INH SCH ×4 (03:41→23:40)
[2020-01-07 04:28] LABS: ALLEN TEST YES; BE 12.6 mmoll (-3.0-3.0); BLOOD TYPE ARTERIAL; HCO3-(ACT) 34.8 mmoll (20.0-26.0); METHB 1.2 % (0.0-1.5); O2(CT) 16.3 mL/dL (15.0-23.0); O2HB 96.7 % (95.0-99.0); PCO2(98.6) 39 mmHg (35-45); PO2(98.6) 137 mmHg (60-100); SAMPLE BLOOD; SAO2 99.6 % (95.0-100.0); THB 11.8 g/dL (11.5-17.4)
[2020-01-07 04:30] LABS: HEMATOCRIT 33.6 % (42.0-52.0); HEMOGLOBIN 11.4 g/dL (14.0-18.0); MCH 33.7 PG (27-31); MCHC 33.9 g/dL (33-37); MCV 99.4 FL (81-99); MPV 10.7 FL (7.4-10.4); RBC 3.38 XMIL (4.7-6.1); RDW 13.4 % (11.5-14.5); WBC 10.93 X1000 (4.8-10.8)
[2020-01-07 04:42] LABS: pH(98.6) 7.57 (7.35-7.45)
[2020-01-07 04:43] LABS: MODALITY CANNULA
[2020-01-07 04:49] LABS: AGAP 14; ALB/GLOB RATIO 0.9; ALBUMIN 3.3 g/dL (3.5-5.0); ALKALINE PHOSPHATASE 86 U/L (32-122); BUN 22 mg/dL (8-22); CALCIUM 9.6 mg/dL (8.8-10.2); CHLORIDE 91 mmol/L (98-107); COSMO 280; ESTIMATED GFR > 60; GLUCOSE 142 mg/dL (70-104); GOT 21 U/L (10-34); GPT 15 U/L (10-44); MAGNESIUM 1.7 mg/dL (1.5-2.7); POTASSIUM 3.3 mmol/L (3.5-5.1); SODIUM 137 mmol/L (136-145); TCO2 32 mmol/L (25-35); TOTAL BILIRUBIN 0.66 mg/dL (0.20-1.00)
[2020-01-07] MEDS: ZOSYN 2.25 GM in NS 50 ML IV SCH ×4 (05:30→22:43)
--- NOTE | 2020-01-07 06:27 | Diag Imaging Result Doc PS360 ---
EXAM: CHEST-PORTABLE HISTORY: respiratory failure TECHNIQUE: Single view COMPARISON: 01/06/2020 FINDINGS: The lungs are well expanded. No cardiomegaly. Decrease in the basilar infiltrates and atelectasis. Decreased the size of the pleural effusions. The endotracheal tube has been removed. The nasogastric tube distally is poorly seen. Comment unsure as to its exact location. IMPRESSION: Interval improvement. The nasogastric tube distally is poorly seen. Electronically signed by Vikas Spencer 01/07/2020 6:25 AM
[2020-01-07] MEDS: PROTONIX IV SCH ×2 (08:44→22:44)
[2020-01-07] MEDS: SODIUM CHLORIDE 0.9% INJ SCH (08:44)
[2020-01-07] MEDS: COREG PO SCH ×2 (08:44→22:44)
[2020-01-07] MEDS: THIAMINE 100 MG in NS 50 ML IV SCH (08:45)
--- NOTE | 2020-01-07 11:21 | GASTROENTEROLOGY PROGRESS NOTE ---
DATE: 01/07/2020 SUBJECTIVE: Mr. Ac is a 59-year-old male resting in bed. The patient is weaned off the mechanical ventilator. He is alert, oriented x2, and is answering questions appropriately. The patient has denied any abdominal pain, nausea, vomiting, and he did have 1 bowel movement today. His nasogastric tube has been taken off. OBJECTIVE: Vital Signs: Temperature 98.1 degrees, pulse 110, respirations 21, blood pressure 115/87, oxygen saturation 96% on 4 liters nasal cannula. The patient's weight is 175 pounds. BMI is 26.6 kg/m2. General: He is alert, oriented x3, in no acute distress. HEENT: Pale conjunctivae. No icterus. PERRL. Neck: Supple. Lungs: Mild rhonchi heard in the anterior howard. Cardiovascular: The patient is tachycardic. Abdomen: Soft, mildly distended, nontender. Active bowel sounds heard in all 4 quadrants. Extremities: No clubbing, no cyanosis, no edema. Pedal pulses 2+ present bilaterally. Neurologic: He is alert, oriented x2. LABORATORY DATA: WBCs are 10.93, RBCs 3.38, hemoglobin is 11.4, hematocrit is 33.6, platelet count is 251,000. Sodium 137, potassium is 3.3, chloride 91, carbon dioxide 32, anion gap 14, BUN 22, creatinine is 1, glucose is 142, calcium is 9.6, total bilirubin is 0.66, AST is 21, ALT is 15, alkaline phosphatase is 86, ammonia is 25, albumin is 3.3. IMPRESSION AND PLAN: 1. GI bleed - resolved. 2. Esophagitis. 3. Aspiration pneumonia. 4. Hypoxic respiratory failure. 5. Alcoholism. 6. Acute blood loss anemia. 7. Fatty liver 8. Hypokalemia PLAN: Mr. Ac is a 59-year-old male with a history of alcoholism. GI has been following him for his GI bleed. Currently, the patient's hemoglobin and hematocrit are 11.4 and 36.6. It has been trending upwards. He is hemodynamically stable. The patient is off the mechanical ventilator and is on nasal cannula 4 liters. He is also on clear liquid diet. The patient is receiving PPIs twice a day. He is also receiving thiamine and folic acid IV. The patient is on antibiotics, Zosyn and Zyvox. For his nutrition, he is receiving Clinimix 75 mL. His NG tube has been discontinued, and he is no longer having tube feeding. We will continue to monitor the patient and follow the plan of care per PCP. This plan was discussed with Dr. Pires. Please call us for any further questions or concerns. Dictated by XUAN Cao for Heriberto Pires MD Physician Attestation I have seen and examined the patient. I have discussed and reviewed the note by Asha GOVEA and agree with findings and plan as documented. MTDD
--- NOTE | 2020-01-07 13:27 | PULMONOLOGY PROGRESS NOTE ---
DATE: 01/07/2020 REASON FOR STUDY: The patient is resting in bed. He is alert and oriented. He does answer questions appropriately although he does answer in a whisper. OBJECTIVE: Vital Signs: Blood pressure is 115/87 with a heart rate of 106, respirations are 20 to 22, temperature is 98.1 degrees with O2 saturations 96% to 98% on 4 L nasal cannula. HEENT: Pupils are equal, round, react to light. Head is normocephalic, atraumatic. Mucous membranes are dry. Neck: Supple with trachea midline. Cardiovascular: Regular rate and rhythm. S1, S2 appreciated. He has no lower extremity edema. Pulmonary: Rhonchi noted throughout that mostly clear to cough. Chest rises and falls symmetric with respiration. Gastrointestinal: Abdomen is soft, mildly distended with bowel sounds in all 4 quadrants. He is nontender to palpation. Extremities: No clubbing, cyanosis, or edema. He reports calves are nontender with peripheral pulses palpable x4 extremities. LABORATORY DATA: WBC is 10.9 with hemoglobin 11.4, hematocrit 33.6, platelets of 251,000. Sodium 137, potassium 3.3, BUN 22, creatinine 1 with a glucose of 142. ABGs: pH 7.5 with pCO2 39, PO2 137, bicarb of 34.8. This is on 4 L nasal cannula. Chest x-ray revealed lungs well expanded, decrease in the basilar infiltrates and atelectasis, decrease in pleural effusions. ASSESSMENT: This is a 59-year-old gentleman with 1. Acute hypoxemic respiratory failure. 2. Bilateral pneumonia. 3. Pleural effusions. 4. Severe esophagitis. 5. Sinusitis. 6. Delirium. 7. Alcohol abuse. PLAN: 1. Continue with bronchodilators, pulmonary toilet. 2. Continue the current antibiotic regimen of Zyvox and Zosyn. 3. Continue gastric acid suppression with Protonix. 4. Continue Clinimix. Dictated by XUAN Sánchez for Kimani Nguyen MD cc: XUAN Sánchez MD
[2020-01-07] MEDS: CLINIMIX E 4.25%-5% SOLUTION 1,000 ML IV SCH ×2 (13:57→22:43)
[2020-01-07] MEDS: FOLIC ACID 1 MG in NS 50 ML IV SCH (16:04)
[2020-01-07] MEDS: ATIVAN IV PRN ×2 (16:57→22:44)
--- NOTE | 2020-01-07 21:05 | PROGRESS NOTE ---
DATE: 01/07/2020 SUBJECTIVE: Patient has no major complaints. He seems more awake, alert. OBJECTIVE: Vital signs: Blood pressure is 103/80, heart rate of 95, respiratory rate 15, temperature 97.8 degrees, 97% on 3 L. Cardiovascular: Regular rate and rhythm. Pulmonary: Bilateral breath sounds clear to auscultation. Gastrointestinal: Soft, nontender. LABORATORY DATA: White count 10, hemoglobin and hematocrit 11 and 33, platelets 251. pH 7.57, pCO2 39, pO2 137. Potassium is 3.3. PROBLEM LIST: 1. Acute hypoxic respiratory failure due to possible aspiration pneumonia. We will continue Zyvox and Zosyn. That will be day 3 and day 7. Seems to be doing okay. 2. Alcohol withdrawal syndrome. He seems to be doing better. 3. Gastrointestinal bleed. Hemoglobin and hematocrit are stable. DISPOSITION: 1. Pending clinical status. 2. He is probably stable to go to the floor. We will go ahead and progress. cc: Juan A Motta MD MTDD
[2020-01-08] MEDS: DUONEB (A & A) INH SCH ×4 (03:30→22:38)
[2020-01-08 05:10] LABS: ALLEN TEST YES; BE 10.5 mmoll (-3.0-3.0); BLOOD TYPE ARTERIAL; HCO3-(ACT) 33.1 mmoll (20.0-26.0); METHB 1.1 % (0.0-1.5); O2(CT) 11.1 mL/dL (15.0-23.0); O2HB 95.6 % (95.0-99.0); PCO2(98.6) 42 mmHg (35-45); PO2(98.6) 79 mmHg (60-100); SAMPLE BLOOD; SAO2 98.6 % (95.0-100.0); THB 8.2 g/dL (11.5-17.4); pH(98.6) 7.52 (7.35-7.45)
[2020-01-08 05:11] LABS: MODALITY CANNULA
[2020-01-08] MEDS: ATIVAN IV PRN ×2 (05:20→08:10)
[2020-01-08] MEDS: ZOSYN 2.25 GM in NS 50 ML IV SCH ×4 (05:20→23:03)
[2020-01-08 06:41] LABS: BASO# 0.02 X1000 (0.0-0.2); BASO% 0.2 % (0.0-0.8); EOS% 5.5 % (0.0-10.0); HEMATOCRIT 30.3 % (42.0-52.0); IMM GRAN# 0.05 X1000 (0.0-0.04); IMM GRAN% 0.6 % (0.0-0.5); LYMPH% 16.6 % (20.5-51.1); MCH 32.4 PG (27-31); MCV 98.1 FL (81-99); MONO# 1.65 X1000 (0.11-0.59); MONO% 18.3 % (1.7-9.3); MPV 10.7 FL (7.4-10.4); NEUT# 5.29 X1000 (1.4-6.5); NEUT% 58.8 % (42.2-75.2); PLT 286 X1000 (130-400); RBC 3.09 XMIL (4.7-6.1); RDW 12.5 % (11.5-14.5); WBC 9.01 X1000 (4.8-10.8)
[2020-01-08 07:37] LABS: AGAP 12; BUN 26 mg/dL (8-22); CALCIUM 9.3 mg/dL (8.8-10.2); CHLORIDE 93 mmol/L (98-107); COSMO 275; CREATININE 0.9 mg/dL (0.7-1.2); ESTIMATED GFR > 60; GLUCOSE 99 mg/dL (70-104); POTASSIUM 3.5 mmol/L (3.5-5.1); SODIUM 135 mmol/L (136-145); TCO2 30 mmol/L (25-35)
[2020-01-08] MEDS: SODIUM CHLORIDE 0.9% INJ SCH (08:09)
[2020-01-08] MEDS: PROTONIX IV SCH ×2 (08:09→20:11)
[2020-01-08] MEDS: COREG PO SCH ×2 (08:10→20:13)
[2020-01-08] MEDS: THIAMINE 100 MG in NS 50 ML IV SCH (08:10)
--- NOTE | 2020-01-08 08:13 | Diag Imaging Result Doc PS360 ---
EXAM: CHEST-PORTABLE INDICATION: respiratory failure TECHNIQUE: One view COMPARISON: 01/07/2020 FINDINGS: There has been interval removal of the NG tube. Bibasilar infiltrates have largely resolved. There is only mild interstitial thickening at the lung bases on the current study. No new consolidation is appreciated. Cardiac silhouette is stable. IMPRESSION: Interval continued improvement of bibasilar infiltrates. Electronically signed by Ayaz Cosme 01/08/2020 8:10 AM
[2020-01-08] MEDS: CLINIMIX E 4.25%-5% SOLUTION 1,000 ML IV SCH (12:18)
[2020-01-08] MEDS: FOLIC ACID 1 MG in NS 50 ML IV SCH (14:33)
[2020-01-08] MEDS: ZYVOX 600 MG/D5W 600 MG/300 ML IVPB IV SCH (14:33)
[2020-01-08] MEDS: TYLENOL PO PRN (17:57)
--- NOTE | 2020-01-08 20:07 | PROGRESS NOTE ---
DATE: 01/08/2020 SUBJECTIVE: He seems like he is doing okay. OBJECTIVE: vital signs: Blood pressure is 127/83, heart rate of 91, respiratory rate of 14, temperature was 99 degrees, and 100% on room air. Cardiovascular: Regular rate and rhythm. Pulmonary: Bilateral breath sounds. Clear to auscultation. Gastrointestinal: Soft, nontender, nondistended. Bowel sounds were positive. Extremities: No clubbing or cyanosis. Lymphatics: No peripheral edema. Neurological: Nonfocal. LABORATORY DATA: White count is 9, hemoglobin and hematocrit 10 and 30, platelets 286,000. The pH 7.52, pCO2 of 42, PaO2 of 79. Basic was normal. PROBLEMS: 1. Acute hypoxic respiratory failure due to aspiration. He is on Zyvox and Zosyn day 4 and day 8. Probably complete 10 days of Zosyn. Maybe consider downgrading off the Zyvox because at this point he is afebrile. He has no temperature. I believe his x-ray is improving. 2. History of alcohol abuse and poor functional status. We will continue treating him and follow closely. 3. Gastrointestinal bleed with hemoglobin and hematocrit that have been stable. 4. Esophagitis. He is on Clinimix. I am going to go ahead and advance his diet. DISPOSITION: It looks like he may need some rehab. We will look at those options if there are any, but he is still too weak to get up and around. cc: Juan A Motta MD
[2020-01-09] MEDS: ZYVOX 600 MG/D5W 600 MG/300 ML IVPB IV SCH ×2 (01:24→13:30)
[2020-01-09] MEDS: CLINIMIX E 4.25%-5% SOLUTION 1,000 ML IV SCH (01:24)
[2020-01-09] MEDS: DUONEB (A & A) INH SCH ×4 (03:34→22:42)
[2020-01-09] MEDS: ZOSYN 2.25 GM in NS 50 ML IV SCH ×3 (04:29→18:29)
[2020-01-09 05:26] LABS: ALLEN TEST YES; BE 5.8 mmoll (-3.0-3.0); BLOOD TYPE ARTERIAL; HCO3-(ACT) 29.4 mmoll (20.0-26.0); METHB 1.2 % (0.0-1.5); O2(CT) 14.2 mL/dL (15.0-23.0); O2HB 95.8 % (95.0-99.0); PCO2(98.6) 40 mmHg (35-45); PO2(98.6) 84 mmHg (60-100); SAMPLE BLOOD; SAO2 98.7 % (95.0-100.0); THB 10.5 g/dL (11.5-17.4); pH(98.6) 7.48 (7.35-7.45)
[2020-01-09 05:27] LABS: MODALITY CANNULA
[2020-01-09 07:06] LABS: AGAP 12; BUN 20 mg/dL (8-22); CALCIUM 9.3 mg/dL (8.8-10.2); CHLORIDE 94 mmol/L (98-107); COSMO 271; CREATININE 0.8 mg/dL (0.7-1.2); ESTIMATED GFR > 60; GLUCOSE 102 mg/dL (70-104); MAGNESIUM 1.8 mg/dL (1.5-2.7); PHOSPHORUS 3.7 mg/dL (2.7-4.5); POTASSIUM 2.9 mmol/L (3.5-5.1); SODIUM 134 mmol/L (136-145); TCO2 28 mmol/L (25-35)
--- NOTE | 2020-01-09 08:08 | Diag Imaging Result Doc PS360 ---
EXAM: CHEST-PORTABLE INDICATION: respiratory failure TECHNIQUE: One view COMPARISON: 01/08/2020 FINDINGS: Interstitial thickening at the lung bases continues to improve to near resolution. No new consolidation is identified. Cardiac silhouette is stable. IMPRESSION: Continued improvement. Electronically signed by Ayaz Cosme 01/09/2020 8:06 AM
[2020-01-09] MEDS: THIAMINE 100 MG in NS 50 ML IV SCH (10:03)
[2020-01-09] MEDS: PROTONIX IV SCH ×2 (10:03→21:55)
[2020-01-09] MEDS: COREG PO SCH ×2 (10:03→21:55)
[2020-01-09] MEDS: TYLENOL PO PRN (14:40)
[2020-01-09] MEDS ORDERED: KLOR-CON PO ONE (15:30)
--- NOTE | 2020-01-09 18:12 | PULMONOLOGY PROGRESS NOTE ---
DATE: 01/09/2020 SUBJECTIVE: Mr. Ac is sitting up in the bed watching TV. He states that "I'm doing okay." He denies any complaints. OBJECTIVE: Vital Signs: Blood pressure is 136/88 with heart rate of 87, respirations 16, temperature is 98.8 degrees oral with O2 saturations 100% on 3 L nasal cannula. Cardiovascular: Regular rate and rhythm. S1 and S2 are appreciated. Pulmonary: Breath sounds are clear with no increased work of breathing noted. Chest rises falls symmetrically with respiration. Gastrointestinal: Abdomen is soft, nontender, nondistended with bowel sounds in all 4 quadrants. Neurologic: He is alert and oriented x3. Extremities: No clubbing, cyanosis or edema. He reports calves are nontender. Peripheral pulses are palpable x4 extremities. LABS: Sodium 134, potassium 2.9, BUN 20, creatinine 0.8 with glucose of 102. ASSESSMENT: This is a 59-year-old gentleman with 1. Acute hypoxemic respiratory failure. 2. Bilateral pneumonia. 3. Pleural effusions. 4. Sinusitis. 5. History of alcohol abuse. PLAN: 1. Continue bronchodilators and pulmonary toilet. 2. Continue antibiotic regimen of Zyvox and Zosyn. 3. Continue gastric acid suppression with Protonix. 4. Continue Clinimix. Dictated by XUAN Sánchez for Kimani Nguyen MD cc: XUAN Sánchez MD
--- NOTE | 2020-01-09 18:15 | PULMONOLOGY PROGRESS NOTE ---
DATE: 01/08/2020 The patient was seen and evaluated on the morning of 01/08/2020. SUBJECTIVE: Mr. Ac has no complaints today. He states he is feeling some better. OBJECTIVE: Vital Signs: Blood pressure is 139/86 with a heart rate of 92, respirations are 18, temperature is 97.9 degrees oral with O2 saturations 97% on 3 L nasal cannula. HEENT: Head is normocephalic, atraumatic. Mucous membranes are moist. Pupils are equal, round, react to light. Neck: Supple. Trachea midline. Cardiovascular: Regular rate and rhythm. S1, S2 appreciated. He has no lower extremity edema. Pulmonary: He has rhonchi scattered throughout that mostly clear to cough. Chest rises and falls symmetric with respiration. Gastrointestinal: Abdomen soft, nondistended with bowel sounds in all 4 quadrants. He is nontender to palpation. Neurologic: He is alert and oriented. Chest x-ray shows improving bibasilar infiltrates. ASSESSMENT: 1. This is a 59-year-old gentleman with acute hypoxemic respiratory failure. 2. Bilateral pneumonia. 3. Pleural effusions. 4. Sinusitis. PLAN: 1. Will continue bronchodilators and pulmonary toilet. 2. Continue his current antibiotic regimen. 3. Continue Clinimix and encourage oral intake. 4. Continue gastric acid suppression with Protonix. Dictated by XUAN Sánchez for Kimani Nguyen MD cc: XUAN Sánchez MD
[2020-01-09] MEDS: FOLIC ACID 1 MG in NS 50 ML IV SCH (18:24)
--- NOTE | 2020-01-09 19:40 | PROGRESS NOTE ---
DATE: 01/09/2020 SUBJECTIVE: He has numerous complaints today, but mostly he does not want any more ABGs, things like that. OBJECTIVE: Blood pressure 124/83, heart rate of 88, respiratory 18 temperature 99.1 degrees, 100% on 3 L.Cardiovascular: Regular rate and rhythm. Pulmonary: Diminished at the bases. GI: Soft, nontender, nondistended. Bowel sounds were positive. PROBLEM LIST: 1. Acute hypoxic respiratory failure due to aspiration. He is on day 5 of Zyvox and day 9 of Zosyn. I think we can probably stop Zyvox. He seems to be doing okay. 2. Esophagitis. He still has fairly significant esophagitis. He is complaining of that. I am going to add some Carafate to his Protonix, and we will see how he does with that. His appetite is diminished somewhat. I am also going to check an amylase and lipase, because he does have an alcohol history. 3. Alcohol abuse withdrawal, but he seems to be doing better. He states today he took a shower by himself, which is a pretty big improvement. 4. History of gastrointestinal bleed. His hemoglobin and hematocrit have been stable. We have not checked in a couple days, but I am going to go ahead and check it tomorrow. 5. Hypokalemia. We will supplement and follow. DISPOSITION: Possibly, he may not need placement or anything if he is improving as he is, but we will continue to see how he does. cc: Juan A Motta MD
[2020-01-09] MEDS: SODIUM CHLORIDE 0.9% INJ SCH (21:55)
[2020-01-09] MEDS: CARAFATE LIQUID PO SCH (21:55)
[2020-01-10] MEDS: ZOSYN 2.25 GM in NS 50 ML IV SCH ×4 (01:06→17:48)
[2020-01-10] MEDS: CARAFATE LIQUID PO SCH ×4 (01:49→20:35)
[2020-01-10] MEDS: DUONEB (A & A) INH SCH ×4 (03:43→22:33)
[2020-01-10 07:30] LABS: AMYLASE 316 U/L (20-200); LIPASE 267 U/L (13-60)
[2020-01-10 07:40] LABS: AGAP 14; BUN 15 mg/dL (8-22); CALCIUM 9.3 mg/dL (8.8-10.2); CHLORIDE 98 mmol/L (98-107); COSMO 274; CREATININE 0.9 mg/dL (0.7-1.2); ESTIMATED GFR > 60; GLUCOSE 83 mg/dL (70-104); MAGNESIUM 1.8 mg/dL (1.5-2.7); PHOSPHORUS 3.2 mg/dL (2.7-4.5); POTASSIUM 3.5 mmol/L (3.5-5.1); SODIUM 137 mmol/L (136-145); TCO2 25 mmol/L (25-35)
[2020-01-10 08:40] LABS: BASO# 0.09 X1000 (0.0-0.2); BASO% 0.8 % (0.0-0.8); EOS# 0.49 X1000 (0.0-0.7); EOS% 4.4 % (0.0-10.0); HEMATOCRIT 31.8 % (42.0-52.0); HEMOGLOBIN 10.5 g/dL (14.0-18.0); IMM GRAN# 0.03 X1000 (0.0-0.04); IMM GRAN% 0.3 % (0.0-0.5); LYMPH# 1.97 X1000 (1.2-3.4); LYMPH% 17.6 % (20.5-51.1); MCH 32.8 PG (27-31); MCV 99.4 FL (81-99); MONO% 9.8 % (1.7-9.3); MPV 9.9 FL (7.4-10.4); NEUT# 7.49 X1000 (1.4-6.5); NEUT% 67.1 % (42.2-75.2); PLT 385 X1000 (130-400); RDW 12.8 % (11.5-14.5); WBC 11.17 X1000 (4.8-10.8)
[2020-01-10] MEDS: FOLIC ACID PO SCH (09:32)
[2020-01-10] MEDS: COREG PO SCH ×2 (09:33→20:35)
[2020-01-10] MEDS: PROTONIX IV SCH ×2 (09:33→20:35)
--- NOTE | 2020-01-10 10:14 | GASTROENTEROLOGY PROGRESS NOTE ---
DATE: 01/10/2020 SUBJECTIVE: Mr. Ac is a 59-year-old male sitting in bed having his breakfast. The patient has denied any nausea, vomiting, or abdominal pain. He mentioned feeling much much better. He had 3 bowel movements yesterday. He has denied having any today. The patient is currently on a heart healthy diet, and is able to tolerate his diet well. OBJECTIVE: Vital Signs: Temperature 98.7 degrees, pulse 94, respirations 18, blood pressure 138/78, and oxygen saturation 99% on 3 L nasal cannula. Patient's weight is 151 pounds. BMI is 23.0 kg/m2. General: He is alert and oriented x3 and in no acute distress. HEENT: Pale conjunctivae. No icterus. PERRL. Neck: Supple. Lungs: Clear to auscultation. Neck: Supple. Lungs: Mild rhonchi heard in the anterior howard. Cardiovascular: Patient is tachycardic. Abdomen: Soft, nontender, and nondistended. Active bowel sounds heard in all 4quadrants. Extremities: No clubbing, no cyanosis, no edema. Pedal pulses 2+ present bilaterally. Neurologic: He is alert and oriented x3. LABORATORY: WBC is 11.17, RBC is 3.20, hemoglobin 10.5, hematocrit 31.8, and platelet count is 385,000. Sodium 137, potassium 3.5, chloride 98, carbon dioxide 25, anion gap 14, BUN 15, creatinine 0.9, glucose is 83, calcium is 9.3, phosphorus is 3.2, and magnesium is 1.8. Amylase 316 and lipase 267. Chest x- ray yesterday showed continued improvement. IMPRESSION AND PLAN: 1. GI bleed - resolved. 2. Esophagitis. 3. Aspiration pneumonia. 4. Septic shock. 5. Hypoxic respiratory failure. 6. Alcoholism. 7. Acute blood loss anemia - improving. 8. Fatty liver secondary to alcoholism. PLAN: Mr. Ac is a 59-year-old male with a history of alcoholism. GI is following him for his GI bleed. The patient's GI bleed has been resolved. His hemoglobin and hematocrit currently is 10.5 and 31.8. It has been trending upwards. He is hemodynamically stable. The patient is on PPIs twice a day. He is also receiving Carafate 1 g p.o. every 6 hours. The patient is on folic acid 1 mg daily. He is receiving antibiotic Zosyn for his pneumonia. The patient needs to continue PPIs for 3 months. Counselled patient on giving up drinking alcohol, advised on the risk associated with it, patient acknowledges understanding of the instructions. We will continue to monitor the patient, and follow the plan of care per PCP. This plan was discussed with Dr. Hatch. Please call us for any further questions or concerns. Dictated by XUAN Cao for Jose Hatch MD cc: Jose Hatch MD I have seen and examined the patient myself and I agree with the above plan of care. Please call us with any further questions or concerns. KEM
[2020-01-10] MEDS: SODIUM CHLORIDE 0.9% INJ SCH (20:35)
--- NOTE | 2020-01-10 22:33 | PULMONOLOGY PROGRESS NOTE ---
DATE: 01/10/2020 SUBJECTIVE: The patient is awake, alert, and conversant. His appetite has improved. He is without complaints today. OBJECTIVE: Vital Signs: Blood pressure 136/97, heart rate 95, respiratory rate 19, oxygen saturation 99% on 2 L per nasal cannula. HEENT: Pupils are equal and reactive. Oropharynx appears clear. Neck: Supple. Chest: Reveals minimal crackles in the lung bases. Cardiac exam: S1, S2. Abdomen: Soft. Extremities: Without edema. LABORATORIES: There is no new microbiology data. IMPRESSION: A 59-year-old with: 1. Acute hypoxemic respiratory failure. 2. Bilateral pneumonia. 3. Sinusitis. 4. Pleural effusion with clearing of chest x-ray. PLAN: 1. Continue bronchial dilators. 2. Antibiotics as directed by Dr. Motta. 3. Encourage p.o. intake. 4. No new recommendations. cc: Kimani Nguyen MD
--- NOTE | 2020-01-11 00:27 | PROGRESS NOTE ---
DATE: 01/10/2020 SUBJECTIVE: Patient has no more complaints. OBJECTIVE: Blood pressure was 126/89, heart rate 91, respiratory rate 19, temperature 100 degrees.Cardiovascular: Regular rate and rhythm. Pulmonary: Bilateral breath sounds clear to auscultation. GI: Soft, nontender, nondistended. Bowel sounds are positive. LABORATORY: White count 11, hemoglobin 10 and hematocrit 31, platelets of 385,000. Basic was normal. PROBLEM LIST: 1. Acute hypoxic respiratory failure. We are weaning O2. He is on day 6 of Zyvox, day 10 of Zosyn which we can potentially stop. 2. Esophagitis. He is on a proton pump inhibitor. We will continue to advance diet and follow. 3. Alcohol withdrawal syndrome. He seems to be doing better. 4. Gastrointestinal bleed. Hemoglobin and hematocrit stable. Continue proton pump inhibitor and follow. 5. Hypokalemia, was supplemented and improved. DISPOSITION: Pending his clinical status, he may end up needing rehab. We will continue to follow. cc: Juan A Motta MD
[2020-01-11] MEDS: ZOSYN 2.25 GM in NS 50 ML IV SCH ×3 (01:03→12:04)
[2020-01-11] MEDS: CARAFATE LIQUID PO SCH ×3 (01:03→14:44)
[2020-01-11] MEDS: DUONEB (A & A) INH SCH ×2 (03:10→07:49)
[2020-01-11] MEDS: PROTONIX IV SCH (08:32)
[2020-01-11] MEDS: FOLIC ACID PO SCH (08:32)
[2020-01-11] MEDS: COREG PO SCH (08:32)
[2020-01-11] MEDS: SODIUM CHLORIDE 0.9% INJ SCH (08:32)
--- NOTE | 2020-01-11 10:30 | GASTROENTEROLOGY PROGRESS NOTE ---
DATE: 01/11/2020 SUBJECTIVE: Mr. Ac is a 59-year-old male sitting in bed having his breakfast. The patient has denied any nausea, vomiting, or abdominal pain. The patient mentions feeling better today. He has denied having any bowel movements today. OBJECTIVE: Vital Signs: Temperature 98.3 degrees, pulse is 90, respirations 16, blood pressure 136/82, oxygen saturation 97% on room air. The patient's weight is 154 pounds, BMI is 23.5 kg/m2. General: He is alert, oriented x3, and in no acute distress. HEENT: Pale conjunctivae. No icterus. PERRL. Neck: Supple. Lungs: Clear to clear to auscultation. Cardiovascular: Regular rate and rhythm. Abdomen: Soft, nontender, nondistended. Active bowel sounds heard in all 4 quadrants. Extremities: No clubbing, no cyanosis, no edema. Pedal pulses 2+ present bilaterally. Neurologic: He is alert, oriented x3. LABORATORY DATA: From 01/09, WBC is 11.17, RBC is 3.20, hemoglobin is 10.5, hematocrit is 31.8, platelet count is 385,000. Sodium 137, potassium 3.5, chloride 98, carbon dioxide 25, anion gap 14, BUN 15, creatinine is 0.9, calcium is 9.3, phosphorus 3.2, magnesium is 1.8. IMPRESSION AND PLAN: 1. Gastrointestinal bleed, resolved. 2. Esophagitis. 3. Acute blood loss anemia, improving. 4. Fatty liver secondary to alcoholism. 5. History of alcoholism. PLAN: Mr. Ac is a 59-year-old male with a history of alcoholism. GI is following him for his GI bleed. The patient has denied anymore further bleeding episodes. His hemoglobin and hematocrit yesterday is 10.5 and 31.8, it has been trended upwards. He is hemodynamically stable. The patient is receiving PPIs twice a day. He is on antibiotic, Zosyn. The patient is also on Carafate liquid 1 g p.o. q.6 hours and is receiving folic acid 1 mg. He can be discharged from GI standpoint, we will follow him up as an outpatient in 2 to 4 weeks. This plan was discussed with Dr. Pires. Please call us for any further questions or concerns. Dictated by XUAN Cao for Heriberto Pires MD [facility]Grant
[2020-01-11 12:28] VITALS: BP 145/92
--- NOTE | 2020-01-11 18:33 | DISCHARGE SUMMARY ---
ADMISSION DATE: 12/31/2019 DISCHARGE DATE: 01/11/2020 DISCHARGE DIAGNOSES: 1. Acute hypoxic respiratory failure. 2. Esophagitis. 3. Alcohol withdrawal syndrome. 4. Gastrointestinal bleed. 5. Pneumonia, possible aspiration type. PROCEDURES: None. CONSULTATIONS: 1. Pulmonary, Dr. Nguyen. 2. Dr. Bronson. 3. Dr. Pires, GI. HOSPITAL COURSE: Briefly, this is a 59-year-old male presenting with nausea, vomiting, and coffee- ground emesis for about 16 hours prior to admission. Heart rate was in the 140s to 150s. He had 100 mL of coffee-grounds emesis. His PaO2 was 53. NG was in place, and he was intubated to protect airway, and because of multiple other issues and acute GI bleed. CT was pursued to rule out PE. 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 Lower extremity Dopplers were negative. Surgery was consulted for possible IVC filter, but I do not think he has a DVT, and I do not know if he had a history of PE, but I guess he was bleeding because of anticoagulation. Pulmonary was consulted because of obviously being on the ventilator. He was on antibiotics. He had slow clinical improvement. He eventually ended up being extubated. Head CT was obtained but did not show any abnormal pathology. He was on Zosyn and Teflaro. I did jo his antibiotics around a bit. He was extubated. His diet was advanced, which he tolerated without significant issue. His hemoglobin and hematocrit stabilized. He never ended up being transfused. He progressed well with PT, and then on the was adamant about getting discharged. Recommended PPI, Carafate and folic acid. Vital signs were stable, and he was felt stable for discharge. Hemoglobin and hematocrit were 10 and 31. DISCHARGE MEDICATIONS: Hydroxyzine 25 t.i.d. p.r.n., lisinopril 10 mg daily, Carafate 1 gram every 6 hours, Augmentin 875/125 p.o. every 12 hours for 7 days, multivitamin daily, Coreg 6.25 b.i.d., folic acid 1 daily, Phenergan p.r.n. and Protonix 40 daily. FOLLOWUP: He will need to follow up with Dr. Hatch in 1 to 2 weeks and XUAN [place]. TIME SPENT: 32-minute discharge. cc: Juan A Motta MD
== END 2020-01-11 17:37 | disposition home or self-care (01) | DRG 207 ==
LOC: ED 02:40 → ICU 07:42 → SUATTDRO 07:42 → 3N 01-08 11:08
PROVIDERS: ATTEND Internal Medicine